=== PATIENT | male | born 1985 | race Caucasian/White ===

== ENCOUNTER 2020-07-12 11:37 | Emergency (ER) | payer MEDICAID, SELFPAY ==
[2020-07-12] MEDS: LORazepam 1 MG TABLET 2 MG PO ×2 (12:24→23:09)
[2020-07-12 12:31] VITALS: BP 142/88; PULSE 91; RESP 19; TEMP 36.6; O2SAT 100; BMI 27.3
--- NOTE | 2020-07-12 12:33 | ED.PSYCH ---
HPI - Psych General Chief Complaint: Psychiatric Symptoms <Debbie Horner NP - Last Filed: 07/12/20 20:47> Stated Complaint: SECTION 12 <Debbie Horner NP - Last Filed: 07/12/20 20:47> Time Seen by Provider: 07/12/20 12:01 <Debbie Horner NP - Last Filed: 07/12/20 20:47> Source: patient, EMS and other ( physician) <Debbie Horner NP - Last Filed: 07/12/20 20:47> Mode of arrival: EMS <Debbie Horner NP - Last Filed: 07/12/20 20:47> Limitations: no limitations <Debbie Horner NP - Last Filed: 07/12/20 20:47> History of Present Illness HPI Narrative: 35-year-old male coming from the [facility] on a Section 12. Per report from nursing the patient was at the [facility] and made some suicidal statements and the physician there placed him on a Section 12. on arrival the patient refuses to speak to me. He will not answer any questions I ask him. HPI and review of systems and physical exam is limited due to resistance of care Unable to obtain HPI due to patient being resisting to care <Debbie Horner NP - Last Filed: 07/12/20 20:47> Related Data Allergies/Adverse Reactions: Allergies Allergy/AdvReac Type Severity Reaction Status Date / Time aspirin [ASPIRIN] Allergy Unknown UPSET Unverified 05/05/20 18:20 STOMACH <Debbie Horner NP - Last Filed: 07/12/20 20:47> Review of Systems Review of Systems: Yes Other ( unable to obtain due to patient being resistant to care) <Debbie Horner NP - Last Filed: 07/12/20 20:47> PMF Past Medical History Attestation statement: The following information was validated with the patient. <Debbie Horner NP - Last Filed: 07/12/20 20:47> Source: old records reviewed and nursing notes reviewed <Debbie Horner NP - Last Filed: 07/12/20 20:47> Social History Social History: Social History Alcohol intake: unknown Smoking Status: Current every day smoker Smoked in Last 30 Days: Yes Use of substances other than those prescribed or required for medical reasons: Yes Substance Use Type: Unknown Advance Directives: No Advance Directives Information Provided: No <Debbie Horner NP - Last Filed: 07/12/20 20:47> Physical Exam Vital Signs: Vital Signs: Last Vital Signs Temp 97.4 F 07/13/20 00:00 Pulse 78 07/13/20 00:00 Resp 18 07/13/20 00:00 BP 125/97 H 07/13/20 00:00 Pulse Ox 99 07/13/20 00:00 Body Mass Index 27.3 <Debbie Horner NP - Last Filed: 07/12/20 20:47> Vital Signs: Last Vital Signs Temp 97.4 F 07/13/20 00:00 Pulse 78 07/13/20 00:00 Resp 18 07/13/20 00:00 BP 125/97 H 07/13/20 00:00 Pulse Ox 99 07/13/20 00:00 Body Mass Index 27.3 <Chivo Posey DO - Last Filed: 07/13/20 05:18> Const: General: no acute distress, alert, awake and Physically active <Debbie Horner NP - Last Filed: 07/12/20 20:47> Orientation/consciousness: patient oriented x3 <Debbie Horner NP - Last Filed: 07/12/20 20:47> Limitations: behavioral limitations <Debbie Horner NP - Last Filed: 07/12/20 20:47> HENMT: Head: Yes normal to inspection <Debbie Horner NP - Last Filed: 07/12/20 20:47> Eyes: General: appearance normal, both eyes and all related structures <Debbie Horner NP - Last Filed: 07/12/20 20:47> Neck: Neck: Yes normal visual inspection <Debbie Horner NP - Last Filed: 07/12/20 20:47> Chest: Chest palpation & inspection: normal inspection of the chest <Debbie Horner NP - Last Filed: 07/12/20 20:47> Resp: Effort & Inspection: normal respiratory effort and able to speak in complete sentences <Debbie Horner NP - Last Filed: 07/12/20 20:47> GI: Inspection: Yes normal to inspection <Debbie Horner NP - Last Filed: 07/12/20 20:47> Back/Spine/Pelvis: Thoracic/Lumbar Spine: thoracic and lumbar spine normal to inspection <Debbie Horner NP - Last Filed: 07/12/20 20:47> Skin: General skin exam: no rashes or lesions noted <Debbie Horner NP - Last Filed: 07/12/20 20:47> Neuro: General: patient oriented x3 <Debbie Horner NP - Last Filed: 07/12/20 20:47> Cognition (Neuro): normal cognition <Debbie Horner NP - Last Filed: 07/12/20 20:47> Gait exam (Neuro): Normal gait present <Debbie Horner NP - Last Filed: 07/12/20 20:47> Motor exam (neuro): 5/5 motor strength present throughout <Debbie Horner NP - Last Filed: 07/12/20 20:47> Sensory Exam: Normal double simultaneous stimulation for sensation <Debbie Horner NP - Last Filed: 07/12/20 20:47> Course Course Course Narrative: unable to complete HPI, review of systems or physical exam due to patient being resistant to care. section 12 is noted however is not completed. Call out to physician to discuss. discussed patient with Dr. Restrepo to sectioned the patient to the emergency department. He tells me the patient arrived to [facility] today. He was acting confused and disoriented. He had a drug screen which was positive for poly substances including PCP. He made vague SI statements to the staff. Sent here on section 12. Patient here is alert, oriented x3 though agitated. Refuses to answer any questions. Patient continues to be resistant to care. Refuses to answer questions. Vital signs stable. Will order drug screen and BHN evaluation. <Debbie Horner NP - Last Filed: 07/12/20 20:47> Patient evaluated and can be cleared for safe discharge patient not homicidal or suicidal <DO Veronica Pacheco Last Filed: 07/13/20 05:18> MDM - Psych Restraints Face to Face Assessment: Face to Face Assessment: Current Situation: After assessment of the patient, a review of the pertinent medical record and a discussion with nursing staff, I feel the patient requires a restrain intervention. Reaction To: [] Medical Condition: [] Behavioral State: [] Continued Need: [] <CHARLIE Song Last Filed: 07/12/20 20:47> Lab Data Labs: Lab Results 07/12/20 Range/Units 23:25 Urine Opiates Screen POSITIVE H (Not Detect) Ur Barbiturates Screen Not Detected (Not Detect) Ur Phencyclidine Scrn POSITIVE H (Not Detect) Ur Amphetamines Screen Not Detected (Not Detect) U Benzodiazepines Scrn Not Detected (Not Detect) Urine Cocaine Screen Not Detected (Not Detect) U Marijuana (THC) Screen POSITIVE H (Not Detect) <Debbie Horner NP - Last Filed: 07/12/20 20:47> Lab Results 07/12/20 Range/Units 23:25 Urine Opiates Screen POSITIVE H (Not Detect) Ur Barbiturates Screen Not Detected (Not Detect) Ur Phencyclidine Scrn POSITIVE H (Not Detect) Ur Amphetamines Screen Not Detected (Not Detect) U Benzodiazepines Scrn Not Detected (Not Detect) Urine Cocaine Screen Not Detected (Not Detect) U Marijuana (THC) Screen POSITIVE H (Not Detect) <DO Veronica Pacheco Last Filed: 07/13/20 05:18> Discharge Plan Discharge Clinical Impression: Substance use <Debbie Horner NP - Last Filed: 07/12/20 20:47> Patient Disposition: Home, Self-Care <CHARLIE Song Last Filed: 07/12/20 20:47> Instructions: Opioid Use Disorder (ED) <CHARLIE Song Last Filed: 07/12/20 20:47> Additional Instructions: Thank you for visiting the emergency department today. If your symptoms worsen or do not resolve completely please return to the emergency department immediately or call 911. If you have any questions please call your primary care physician <Debbie Horner NP - Last Filed: 07/12/20 20:47> Referrals: Behavioral Health Specialist [Provider Group] - 2 days <Debbie Horner NP - Last Filed: 07/12/20 20:47>
[2020-07-12 12:36] VITALS: BP 142/88; PULSE 91; RESP 19; TEMP 36.6; O2SAT 100
[2020-07-12 16:26] VITALS: BP 107/45; PULSE 82; RESP 16; TEMP 37.1; O2SAT 99
--- NOTE | 2020-07-12 16:31 | PC.NURSE ---
[facility] faxed and called.
--- NOTE | 2020-07-12 17:41 | PC.NURSE ---
Pt awake, currently yelling at staff about his dinner portion, explained that staff has no control over portion size but that sandwiches are available if he is still hungry. PT angrily eating dinner at this time.
--- NOTE | 2020-07-12 19:06 | PC.NURSE ---
Report received. PT is resting in bed. Breathing is even and unlabored. PT in no acute distress. Waiting to be seen.
[2020-07-12 20:19] VITALS: RESP 20
[2020-07-13] VITALS: BP 125/97; PULSE 78; RESP 18; TEMP 36.3; O2SAT 99
[2020-07-13 00:42] LABS: Amphetamine Screen Urine Not Detected (Not Detect); Barbiturates, Urine Not Detected (Not Detect); Benzodiazepines Screen Urine Not Detected (Not Detect); Cannabinoid Screen Urine POSITIVE (Not Detect); Cocaine Screen Urine Not Detected (Not Detect); Opiate Screen Urine POSITIVE (Not Detect); Phencyclidine Screen Urine POSITIVE (Not Detect)
--- NOTE | 2020-07-13 05:33 | PC.NURSE ---
PT woke up complaining of withdrawal symptoms. PT exhibiting mild tremors and slight perspiration on forehead. Provider notified.
[2020-07-13] MEDS: LORazepam 1 MG TABLET PO (05:37)
[2020-07-13 06:00] VITALS: BP 96/72; PULSE 103; RESP 20; TEMP 37.1; O2SAT 98
--- NOTE | 2020-07-13 07:31 | PC.NURSE ---
Report received from SELMA Diaz. Per report, pt is ready for discharge. Pt notified that discharge was ordered. Pt angry because he has not received Suboxone. Pt encouraged to go to his clinic to get Suboxone- states that he has a clinic he attends. Pt continues to be angry. Secuirty in for assistance. Pt discharged as ordered.
== END 2020-07-13 07:34 | disposition home or self-care (01) ==
PROVIDERS: Nurse Practitioner Family; Emergency Provider Emergency Medicine
DX: F11.10 Opioid abuse, uncomplicated (principal); F16.10 Hallucinogen abuse, uncomplicated; F12.10 Cannabis abuse, uncomplicated; R45.851 Suicidal ideations; F17.200 Nicotine dependence, unspecified, uncomplicated; Z71.6 Tobacco abuse counseling; Z71.51 Drug abuse counseling and surveillance of drug abuser
CPT/HCPCS: 80307; 99285

== ENCOUNTER 2020-10-31 19:25 | Emergency (ER) | payer MEDICAID, SELFPAY ==
[2020-10-31 19:49] VITALS: BP 199/90; PULSE 88; RESP 16; TEMP 36.8; O2SAT 98; BMI 22.6
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
[2020-10-31 20:44] LABS: MANUAL DIFF FLAG NO
[2020-10-31 20:46] LABS: Basophils Percent Auto 0.3 % (0-2); Eosinophils Absolute Auto 0.1 X10*3/uL (0.0-0.4); Eosinophils Percent Auto 1.3 % (0-4); Hematocrit 36.6 % (42-52); Hemoglobin 11.4 g/dl (14.0-18.0); Imm Gran Abs Auto 0.01 X10*3/uL (0.00-0.03); Imm Gran Pct Auto 0.1 % (0.0-0.4); Lymphocytes Absolute Auto 2.4 X10*3/uL (1.2-4.9); Lymphocytes Percent Auto 34.3 % (20-40); Mean Corpuscular HGB Conc 31.1 g/dl (31.0-36.0); Mean Corpuscular Hemoglobin 25.4 pg (27.0-33.0); Mean Corpuscular Volume 81.5 fL (80-98); Monocytes Absolute Auto 0.6 X10*3/uL (0.1-1.2); Monocytes Percent Auto 8.5 % (2-11); Neutrophils Absolute Auto 3.9 X10*3/uL (2.0-8.3); Neutrophils Percent Auto 55.5 % (45-73); Platelet Count 231 X10*3/uL (160-400); Red Blood Count 4.49 X10*6/uL (4.60-5.80); Red Cell Distribution Width 15.3 % (11.0-16.0)
[2020-10-31 21:10] LABS: Ethanol < 10 mg/dL
[2020-10-31 21:14] LABS: Alanine Aminotransferase 18 U/L (0-40); Albumin Level 3.8 g/dL (3.5-5.0); Alkaline Phosphatase 54 U/L (39-117); Anion Gap 11 (12-20); Aspartate Amino Transferase 27 U/L (5-37); Bilirubin Total 0.5 mg/dL (0.0-1.0); Blood Urea Nitrogen 15 mg/dL (9-16); Calcium 8.9 mg/dL (8.4-10.2); Carbon Dioxide 30 mmol/L (22-29); Chloride 101 mmol/L (96-108); Creatinine Clr Calc Pharmacy 111.8; Estimated Glomerular Filt Rate > 60; Glucose Random 99 mg/dL (60-115); Potassium 4.2 mmol/L (3.3-5.1); Sodium 138 mmol/L (135-145); Total Protein 6.7 g/dL (6.5-8.0)
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
[2020-10-31] MEDS: LORazepam 1 MG TABLET 2 MG PO (21:45)
--- NOTE | 2020-10-31 21:47 | PC.NURSE ---
FUR POINTER AT BEDSIDE. PT IN NAD, MEDICATED W/ PO ATIVAN FOR ANXIETY PER EMAR.
[2020-10-31 23:45] VITALS: BP 107/64; PULSE 70; RESP 16; TEMP 37.2; O2SAT 97
[2020-11-01 06:00] VITALS: BP 134/68; PULSE 76; RESP 18; TEMP 36.7; O2SAT 99
--- NOTE | 2020-11-01 07:16 | PC.NURSE ---
Report received. PT currently resting, waiting to be seen.
--- NOTE | 2020-11-01 09:16 | PC.NURSE ---
[facility] contacted, a clinician will not be available for evaluation until this afternoon.
[2020-11-01 09:46] VITALS: BP 103/64; PULSE 66; RESP 16; TEMP 36.3; O2SAT 97
--- NOTE | 2020-11-01 09:50 | PC.NURSE ---
care team at bedside
[2020-11-01 12:08] LABS: COVID-19 Test Negative (Negative)
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
[2020-11-01 12:24] LABS: Amphetamine Screen Urine Not Detected (Not Detect); Barbiturates, Urine Not Detected (Not Detect); Benzodiazepines Screen Urine Not Detected (Not Detect); Cannabinoid Screen Urine POSITIVE (Not Detect); Cocaine Screen Urine POSITIVE (Not Detect); Opiate Screen Urine POSITIVE (Not Detect); Phencyclidine Screen Urine Not Detected (Not Detect)
--- NOTE | 2020-11-01 14:10 | MHC.RECOVSUP ---
? Reason for consult:Continuity of care o Current location: [facility] o Identified substance use concern: Heroin - Withdrawal - Seeking ATS (detox) - Support ? Intervention: o ATS bed search started/completed/in process o MAT started or to be started o Community resources provided o Harm reduction discussion ? Plan: o Bed search in progress to o Follow up tomorrow o Patient awaiting crisis evaluation o Patient to follow up with [facility] after discharge ? Additional information: PT refusesd services from [place] or [facility]. pt on wait list for [facility]. Referred case to Nurse Lambert.
[2020-11-01] MEDS: LORazepam 1 MG TABLET 2 MG PO (14:14)
[2020-11-01 15:36] VITALS: BP 122/84; PULSE 57; RESP 16; TEMP 37.5; O2SAT 97
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
--- NOTE | 2020-11-01 16:00 | MHC.RECOVRN ---
Pt agreed to be connected to [facility]. APOLINAR obtained, referral and pertinent information faxed.
== END 2020-11-01 17:15 | disposition home or self-care (01) ==
PROVIDERS: Nurse Practitioner Family; Physician Assistant; Emergency Provider Student in an Organized Health Care Education/Training Program
DX: F11.151 Opioid abuse with opioid-induced psychotic disorder with hallucinations (principal); F11.150 Opioid abuse with opioid-induced psychotic disorder with delusions; F23 Brief psychotic disorder; F43.10 Post-traumatic stress disorder, unspecified; R45.851 Suicidal ideations; F22 Delusional disorders; F32.9 Major depressive disorder, single episode, unspecified; F41.9 Anxiety disorder, unspecified; Z20.822 Contact with and (suspected) exposure to COVID-19; F14.10 Cocaine abuse, uncomplicated; F11.10 Opioid abuse, uncomplicated
CPT/HCPCS: 36415; 80053; 80307; 80320; 85025; 87635; 99285

== ENCOUNTER → 2020-11-24 13:03 | Outpatient (BNVA) | payer MEDICAID, SELFPAY | PROVIDERS: Visit Provider Nurse Practitioner Psychiatric/Mental Health | DX: F11.99 Opioid use, unspecified with unspecified opioid-induced disorder (principal) | CPT/HCPCS: 80305; 99202 ==

== ENCOUNTER → 2020-12-01 13:01 | Outpatient (BNVA) | payer MEDICAID, SELFPAY | PROVIDERS: Visit Provider Nurse Practitioner Psychiatric/Mental Health | DX: F11.99 Opioid use, unspecified with unspecified opioid-induced disorder (principal) | CPT/HCPCS: 80305; 99212 ==

== ENCOUNTER → 2020-12-15 12:54 | Outpatient (BNVA) | payer MEDICAID, SELFPAY | PROVIDERS: Visit Provider Nurse Practitioner Psychiatric/Mental Health | DX: F11.99 Opioid use, unspecified with unspecified opioid-induced disorder (principal) | CPT/HCPCS: 80305; 99212 ==

== ENCOUNTER → 2020-12-23 12:46 | Outpatient (BNVA) | payer MEDICAID, SELFPAY | PROVIDERS: Visit Provider Internal Medicine | DX: F11.99 Opioid use, unspecified with unspecified opioid-induced disorder (principal) | CPT/HCPCS: 80305; 99211 ==

== ENCOUNTER → 2020-12-29 13:06 | Outpatient (BNVA) | payer MEDICAID, SELFPAY | PROVIDERS: Visit Provider Nurse Practitioner Psychiatric/Mental Health | DX: F11.99 Opioid use, unspecified with unspecified opioid-induced disorder (principal) | CPT/HCPCS: 80305; 99212 ==

== ENCOUNTER 2021-01-05 13:27 | Outpatient (REF) | payer MEDICAID, SELFPAY ==
[2021-01-11 10:42] LABS: Buprenorphine >1000 ng/mL; Norbuprenorphine 150 ng/mL
== END 2021-01-05 13:28 | disposition home or self-care (01) ==
LOC: HO.LAB 13:27
PROVIDERS: Visit Provider Nurse Practitioner Psychiatric/Mental Health
DX: F11.20 Opioid dependence, uncomplicated (principal); Z79.899 Other long term (current) drug therapy
CPT/HCPCS: 80305; 80348; 99212

== ENCOUNTER 2021-01-12 10:12 | Outpatient (REF) | payer MEDICAID, SELFPAY ==
[2021-01-15 11:27] LABS: Buprenorphine 120 ng/mL; Norbuprenorphine 190 ng/mL
== END 2021-01-12 10:13 | disposition home or self-care (01) ==
LOC: HO.LAB 10:12
PROVIDERS: Visit Provider Nurse Practitioner Psychiatric/Mental Health
DX: F11.20 Opioid dependence, uncomplicated (principal); Z51.81 Encounter for therapeutic drug level monitoring
CPT/HCPCS: 80305; 80348; 99212

== ENCOUNTER → 2021-01-19 13:12 | Outpatient (BNVA) | payer MEDICAID, SELFPAY | PROVIDERS: Visit Provider Nurse Practitioner Psychiatric/Mental Health | DX: Z51.81 Encounter for therapeutic drug level monitoring (principal); F11.20 Opioid dependence, uncomplicated | CPT/HCPCS: 80305; 99212 ==

== ENCOUNTER 2021-01-26 12:22 | Outpatient (REF) | payer MEDICAID, SELFPAY | END 2021-01-26 12:23 | disposition home or self-care (01) | LOC: HO.LAB 12:22 | PROVIDERS: Visit Provider Nurse Practitioner Psychiatric/Mental Health | DX: Z11.1 Encounter for screening for respiratory tuberculosis (principal); Z11.4 Encounter for screening for human immunodeficiency virus [HIV]; Z79.899 Other long term (current) drug therapy | CPT/HCPCS: 99211 ==

== ENCOUNTER → 2021-02-02 13:06 | Outpatient (BNVA) | payer MEDICAID, SELFPAY | PROVIDERS: Visit Provider Nurse Practitioner Psychiatric/Mental Health | DX: Z51.81 Encounter for therapeutic drug level monitoring (principal); F11.20 Opioid dependence, uncomplicated | CPT/HCPCS: 80305; 99212 ==

== ENCOUNTER 2021-04-11 10:51 | Inpatient (IN) | payer MEDICAID, SELFPAY ==
[2021-04-11] VITALS (10 sets, daily range): BP systolic 114–144; BP diastolic 56–108; PULSE 109–126; RESP 16–28; TEMP 36–37.1; O2SAT 87–97; BMI 22.7
--- NOTE | ~2021-04-11 | CT_ITS ---
EXAMINATION: CT HEAD WITHOUT CONTRAST CLINICAL INFORMATION: Fall, trauma COMPARISON: None TECHNIQUE: Contiguous axial imaging was performed from the skull base to vertex without intravenous administration of contrast. Additional 2-D coronal and sagittal reformatted images are generated on the CT workstation and uploaded to PACS. This CT examination was performed using dose optimization techniques as appropriate, variously including the following: *Automated exposure control *Adjustment of mA and/or kV according to patient size (this includes techniques or standardized protocols for targeted exams where dose is matched to indication/reason for exam; i.e. extremities or head) *Use of iterative reconstruction technique DLP: 778 mGy-cm FINDINGS: There is no intracranial hemorrhage, hematoma, or extra-axial fluid collection. The ventricles are normal in size. There is no hydrocephalus, edema, or mass effect. The hudson-white matter differentiation appears symmetric. There is no visible acute territorial infarct or mass lesion. The calvarium appears intact. There is no pneumocephalus or orbital emphysema. There is a air-fluid level right maxillary sinus. The orbital rims and floors zygomatic arches appear intact. No visible fracture. CT/CT head/brain wo con IMPRESSION: 1. No acute intracranial abnormality. 2. Air-fluid level right maxillary sinus. No visible fracture.
--- NOTE | ~2021-04-11 | XR_ITS ---
EXAMINATION: XR CHEST CLINICAL INFORMATION: Right chest pain. COMPARISON: Chest 08/07/2019 TECHNIQUE: Frontal view of the chest was obtained. FINDINGS: The lungs are well-expanded and clear. The heart size is enlarged. The pulmonary vascularity is normal. No gross bony abnormality. XR/XR chest 1V IMPRESSION: Mild cardiomegaly. No acute process.
--- NOTE | ~2021-04-11 | CT_ITS ---
EXAMINATION: CT CERVICAL SPINE WITHOUT CONTRAST CLINICAL INFORMATION: Fall, trauma COMPARISON: CT head 04/11/2021 TECHNIQUE: Multidetector volumetric CT imaging of the cervical spine is performed without contrast in the axial plane. Additional 2D reformatted coronal and sagittal images are generated on the CT workstation and uploaded to PACS. This CT examination was performed using dose optimization techniques as appropriate, variously including the following: *Automated exposure control *Adjustment of mA and/or kV according to patient size (this includes techniques or standardized protocols for targeted exams where dose is matched to indication/reason for exam; i.e. extremities or head) *Use of iterative reconstruction technique DLP: 440 mGy-cm FINDINGS: There is no vertebral compression fracture, fracture line, spondylolisthesis, or prevertebral soft tissue swelling. The craniocervical junction appears normal. The odontoid appears intact. There is normal cervical lordosis. There are no significant degenerative changes. There is no apical pneumothorax. Air-fluid level right maxillary sinus again noted. CT/CT cervical spine wo con IMPRESSION: No acute bony abnormality or prevertebral soft tissue swelling.
--- NOTE | ~2021-04-11 | CT_ITS ---
EXAMINATION: CT CHEST WITHOUT CONTRAST CLINICAL INFORMATION: Fall, trauma COMPARISON: None TECHNIQUE: Multidetector volumetric CT imaging of the chest was done. Axial MIP volume rendering provided. Sagittal and coronal reformatted images were obtained. No intravenous contrast. CT abdomen and pelvis described in separate report. This CT examination was performed using dose optimization techniques as appropriate, variously including the following: *Automated exposure control *Adjustment of mA and/or kV according to patient size (this includes techniques or standardized protocols for targeted exams where dose is matched to indication/reason for exam; i.e. extremities or head) *Use of iterative reconstruction technique DLP: 185 mGy-cm FINDINGS: LUNGS: The central airways are clear. There is no endobronchial lesion or bronchiectasis. There is no pneumothorax or pneumomediastinum or subcutaneous emphysema. Bilateral fluffy airspace consolidation opacities are scattered throughout the bilateral lower lobes, more extensive on the right. There is somewhat greater involvement along the bronchovascular bundles and greater involvement posteriorly. There are also scattered superimposed groundglass opacities in the lower lobes. Lesser airspace consolidative and groundglass opacities are present in the right upper lobe. Predominantly groundglass opacities right middle lobe and posterior left upper lobe. There is incidental calcified granuloma left posterior base. Otherwise, no pulmonary nodule or mass. MEDIASTINUM: No mediastinal hematoma. There is normal thymic tissue anteriorly. The thoracic aorta is normal in caliber. No aneurysmal enlargement or intramural hematoma suggested. The heart is normal in size. No pericardial effusion. PLEURA: No pleural effusion. No pleural thickening. AXILLA: No lymphadenopathy. UPPER ABDOMEN: CT abdomen and pelvis described in separate report. OSSEOUS STRUCTURES: Unremarkable. CT/CT chest wo con IMPRESSION: 1. Extensive bilateral fluffy airspace consolidative opacities and superimposed groundglass opacities greatest lower lobes, greater on right. Lesser involvement right upper lobe and predominantly groundglass opacities right middle lobe and posterior left upper lobe. If patient was asymptomatic prior to trauma, the finding are likely related to combination pulmonary hemorrhage and/or aspiration. If patient had respiratory symptoms prior to trauma, then infectious etiology may be superimposed as well. 2. No mediastinal hematoma. No pericardial effusion. Thoracic aorta normal in caliber. 3. No pneumothorax, pneumomediastinum, or subcutaneous emphysema. No fracture. 4. CT abdomen and pelvis described in separate report.
--- NOTE | ~2021-04-11 | CT_ITS ---
EXAMINATION: CT ABDOMEN AND PELVIS WITHOUT CONTRAST CLINICAL INFORMATION: Fall, trauma COMPARISON: CT chest 04/11/2021 TECHNIQUE: Multidetector volumetric imaging was performed from the superior aspect of the liver through the pubic symphysis. No oral or intravenous contrast. Sagittal and coronal reformatted images were obtained on the technologist's workstation. CT chest described in separate report. This CT examination was performed using dose optimization techniques as appropriate, variously including the following: *Automated exposure control *Adjustment of mA and/or kV according to patient size (this includes techniques or standardized protocols for targeted exams where dose is matched to indication/reason for exam; i.e. extremities or head) *Use of iterative reconstruction technique DLP: 420 mGy-cm (abd-pelvis) FINDINGS: LUNG BASES: CT chest described in separate report. LIVER, GALLBLADDER, AND BILIARY TREE: Liver is within upper limits of normal size and smooth in contour. The parenchyma areas homogeneous. No focal parenchymal lesion on this noncontrast exam. No intrahepatic ductal dilatation. The gallbladder and common duct or unremarkable. PANCREAS: Unremarkable. SPLEEN: Unremarkable. ADRENAL GLANDS: Unremarkable. KIDNEYS AND URETERS: The kidneys are normal in size, shape, and attenuation. No hydronephrosis, hydroureter, or calculi seen. No perinephric stranding. No retroperitoneal hematoma. BLADDER: Unremarkable. GASTROINTESTINAL TRACT: The stomach is dilated and predominantly fluid-filled with some retained food contents posteriorly and some intraluminal air nondependent lumen. There is no wall thickening. The abdomen and pelvis shows no pneumatosis or free air. There is no focal inflammatory changes in the bowel. The appendix is normal. There is no ascites or fluid collection. ABDOMINAL WALL: No significant hernia are appreciated. No abdominal wall hematoma. LYMPH NODES: No lymphadenopathy. VASCULAR: Unremarkable on noncontrast exam. No aneurysmal enlargement aorta. PELVIC VISCERA: Unremarkable. OSSEOUS STRUCTURES: No visible fracture. CT/CT abdomen pelvis wo con IMPRESSION: 1. Gastric dilatation with intraluminal fluid and food contents. 2. No pneumatosis or free air. No ascites or hematoma. 3. Abdominal organs unremarkable (noncontrast exam). 4. No fracture. 5. CT chest described in separate report.
--- NOTE | 2021-04-11 11:20 | ED.OVERDOSE ---
HPI - Overdose General Chief Complaint: Overdose Stated Complaint: OVERDOSE Time Seen by Provider: 04/11/21 11:18 Source: patient and EMS Mode of arrival: EMS Limitations: no limitations History of Present Illness HPI Narrative: very limited history the patient notes he was using heroin and overdosed, given IV narcan and IN narcan - he is covered in weird linear bruises found down on the ground he is upper 80s on NRB no other history provided RN doesn't know doses of narcan and if patient was bagged complaint: accidental overdose Onset (ago): unknown Context: Accidental Overdose: wanted to get high Treatments Prior to Arrival: oxygen and narcan Related Data Previous Rx's Medication Instructions Recorded naloxone 4 mg/actuation nasal 4 mg INTRANASAL Q2M PRN #2 ea 11/24/20 spray (Narcan) buprenorphine 8 mg-naloxone 2 mg 1 film BUCCAL BID 7 Days #28 ea 02/02/21 sublingual film (Suboxone) clonidine HCl 0.1 mg tablet 0.1 mg PO BID PRN #14 tab 02/02/21 buprenorphine 300 mg/1.5 mL 300 mg SUBCUT ONCE #1.5 ml 02/06/21 solution,exten.rel.subcutaneous syringe (Sublocade) Allergies Allergy/AdvReac Type Severity Reaction Status Date / Time No Known Allergies Allergy Verified 12/29/20 13:15 Review of Systems Review of Systems: ROS unable to be obtained due to altered mental status PMFSH Past Medical History Attestation statement: The following information was validated with the patient. Medical History Drug abuse, opioid type Opioid use disorder Social History Social History Alcohol intake: never Substance Use Type: Heroin Advance Directives: Yes Advance Directives Information Provided: Yes Advance Directives on File: No Physical Exam Vital Signs: Vital Signs: Last Vital Signs Temp 98.7 F 04/11/21 11:16 Pulse 126 H 04/11/21 13:36 Resp 16 04/11/21 13:36 BP 127/108 H 04/11/21 13:36 Pulse Ox 97 04/11/21 13:36 Oxygen Flow Rate 15 04/11/21 11:16 Body Mass Index 22.7 Appearance: Alert. Oriented X3. Mild acute distress. Eyes: pupils are pinpoint ENT: Pharynx normal. Neck: Normal inspection. Neck supple. CVS: Normal heart rate and rhythm. Pulses normal. Respiratory: No respiratory distress. Breath sounds decreased throughout but normal RR, speaking in full sentences Abdomen: Soft and non-tender. Has linear ecchmotic lines ?scratch portillo noted on abdomen / back Skin: Skin warm and dry. pale skin color. Extremities: No lower extremity edema. pain in R thigh no obvious trauma compartments are soft and compressible states it is tingly Neuro: Oriented X 3. No motor deficit. No sensory deficit. Course Course Course Narrative: patient with diffuse myalgias all compartments are soft and compressible, he isn't sure how long he was down, markedly high CPK started on bicarb gtt as well and IVF recheck compartments soft and compressible still c/o myalgias orthopedics and renal notified recheck again 127pm all compartments soft and compressible though c/o body aches admit to hospitalist service, attempts to wean down O2 plan to admit MDM - Overdose MDM Narrative Medical decision making narrative: 35 yo male accidental overdose requiring narcan - he is awake and alert now normal RR low O2 sats possible aspiration pneumonia vs neg pressure pulm edema, labs, trauma CT scans given weird bruising but could be scratch portillo after he was using c/o R thigh pain no signs of trauma states it is tingling possible compressive area currently distal NV intact and compartments are soft and compressible, dispo per workup and observation Lab Data Result diagrams: 04/11/21 11:33 04/11/21 11:33 Labs: Lab Results 04/11/21 04/11/21 04/11/21 Range/Units 11:33 11:33 11:34 WBC 21.2 H (4.8-10.8) X10*3/uL RBC 4.78 (4.60-5.80) X10*6/uL Hgb 12.3 L (14.0-18.0) g/dl Hct 39.2 L (42-52) % MCV 82.0 (80-98) fL MCH 25.7 L (27.0-33.0) pg MCHC 31.4 (31.0-36.0) g/dl RDW 16.7 H (11.0-16.0) % Plt Count 211 (160-400) X10*3/uL MPV 9.9 (9.4-12.4) fL Immature Gran % (Auto) 1.1 H (0.0-0.4) % Neut % (Auto) 84.6 H (45-73) % Lymph % (Auto) 6.6 L (20-40) % [place] % (Auto) 7.6 (2-11) % Eos % (Auto) 0.0 (0-4) % Baso % (Auto) 0.1 (0-2) % Lymph # (Auto) 1.4 (1.2-4.9) X10*3/uL [place] # (Auto) 1.6 H (0.1-1.2) X10*3/uL Eos # (Auto) 0.0 (0.0-0.4) X10*3/uL Baso # (Auto) 0.0 (0.0-0.2) X10*3/uL Abs Immat Gran (auto) 0.24 H (0.00-0.03) X10*3/uL Absolute Neuts (auto) 17.9 H (2.0-8.3) X10*3/uL Absolute Nucleated RBC 0.000 (0.0-0.012) X10*3/uL Nucleated RBC % (auto) 0.0 (0.0-0.2) /100WBC Smear Tech's Comments VERIFIED Sodium 136 (135-145) mmol/L Potassium 5.4 H D (3.3-5.1) mmol/L Chloride 100 (96-108) mmol/L Carbon Dioxide 19 L (22-29) mmol/L Anion Gap 22 H (12-20) BUN 32 H D (9-16) mg/dL Creatinine 1.52 H (0.5-1.4) mg/dL Estim Creat Clear Calc 62.5 Estimated GFR 52 Random Glucose 104 (60-115) mg/dL Lactic Acid (0.5-2.0) mmol/L Calcium 9.7 D (8.4-10.2) mg/dL Phosphorus 7.4 H (2.7-4.5) mg/dL Magnesium 2.7 H (1.6-2.6) mg/dL Total Bilirubin 0.6 (0.0-1.0) mg/dL Direct Bilirubin 0.2 (0.0-0.5) mg/dL AST 176 H (5-37) U/L ALT 54 H (0-40) U/L Alkaline Phosphatase 55 (39-117) U/L Total Creatine Kinase 71963 H (38-174) U/L Total Protein 7.7 (6.5-8.0) g/dL Albumin 4.6 D (3.5-5.0) g/dL Lipase 18 (8-78) U/L Urine Opiates Screen (Not Detect) Urine Fentanyl Screen (Not Detect) Ur Barbiturates Screen (Not Detect) Ur Phencyclidine Scrn (Not Detect) Ur Amphetamines Screen (Not Detect) U Benzodiazepines Scrn (Not Detect) Urine Cocaine Screen (Not Detect) U Marijuana (THC) Screen (Not Detect) Ethyl Alcohol mg/dL COVID-19 (ALEXX) Negative (Negative) COVID-19 Clin Com See Note 04/11/21 04/11/21 04/11/21 Range/Units 12:01 13:10 13:10 WBC (4.8-10.8) X10*3/uL RBC (4.60-5.80) X10*6/uL Hgb (14.0-18.0) g/dl Hct (42-52) % MCV (80-98) fL MCH (27.0-33.0) pg MCHC (31.0-36.0) g/dl RDW (11.0-16.0) % Plt Count (160-400) X10*3/uL MPV (9.4-12.4) fL Immature Gran % (Auto) (0.0-0.4) % Neut % (Auto) (45-73) % Lymph % (Auto) (20-40) % [place] % (Auto) (2-11) % Eos % (Auto) (0-4) % Baso % (Auto) (0-2) % Lymph # (Auto) (1.2-4.9) X10*3/uL [place] # (Auto) (0.1-1.2) X10*3/uL Eos # (Auto) (0.0-0.4) X10*3/uL Baso # (Auto) (0.0-0.2) X10*3/uL Abs Immat Gran (auto) (0.00-0.03) X10*3/uL Absolute Neuts (auto) (2.0-8.3) X10*3/uL Absolute Nucleated RBC (0.0-0.012) X10*3/uL Nucleated RBC % (auto) (0.0-0.2) /100WBC Smear Tech's Comments Sodium (135-145) mmol/L Potassium (3.3-5.1) mmol/L Chloride (96-108) mmol/L Carbon Dioxide (22-29) mmol/L Anion Gap (12-20) BUN (9-16) mg/dL Creatinine (0.5-1.4) mg/dL Estim Creat Clear Calc Estimated GFR Random Glucose (60-115) mg/dL Lactic Acid 3.6 H* (0.5-2.0) mmol/L Calcium (8.4-10.2) mg/dL Phosphorus (2.7-4.5) mg/dL Magnesium (1.6-2.6) mg/dL Total Bilirubin (0.0-1.0) mg/dL Direct Bilirubin (0.0-0.5) mg/dL AST (5-37) U/L ALT (0-40) U/L Alkaline Phosphatase (39-117) U/L Total Creatine Kinase (38-174) U/L Total Protein (6.5-8.0) g/dL Albumin (3.5-5.0) g/dL Lipase (8-78) U/L Urine Opiates Screen POSITIVE H (Not Detect) Urine Fentanyl Screen POSITIVE H (Not Detect) Ur Barbiturates Screen Not Detected (Not Detect) Ur Phencyclidine Scrn Not Detected (Not Detect) Ur Amphetamines Screen Not Detected (Not Detect) U Benzodiazepines Scrn Not Detected (Not Detect) Urine Cocaine Screen POSITIVE H (Not Detect) U Marijuana (THC) Screen POSITIVE H (Not Detect) Ethyl Alcohol < 10 mg/dL COVID-19 (ALEXX) (Negative) COVID-19 Clin Com ECG Data Attestation: I personally reviewed and interpreted this ECG as follows: ECG interpretation date: 04/11/21 ECG interpretation time: 11:51 Interpretation: Rate: 112 Rhythm: sinus tachycardia [place]: normal Normal P waves. Normal PUMA. Normal QRS complex. ST T wave : normal no BRIAN qTC: normal prior studies: no acute ischemia The study has been interpreted contemporaneously by me. . Critical Care Time Critical Care Time Critical Care Time: Yes Total Critical Care Time: 60 Attestation: IVF, medical consults, repeat compartment checks I attest to this time spent taking care of the patient Discharge Plan Discharge Clinical Impression: Accidental overdose Qualifiers: Encounter type: initial encounter Qualified Code(s): T50.901A - Poisoning by unspecified drugs, medicaments and biological substances, accidental (unintentional), initial encounter Rhabdomyolysis Qualifiers: Rhabdomyolysis type: non-traumatic Qualified Code(s): M62.82 - Rhabdomyolysis Aspiration pneumonia Qualifiers: Aspiration pneumonia type: due to vomit Laterality: right Lung location: unspecified part of lung Qualified Code(s): J69.0 - Pneumonitis due to inhalation of food and vomit Patient Disposition: Admitted As Inpatient
--- NOTE | 2021-04-11 11:26 | ECG_ITS ---
Test Reason : OVERDOSE Blood Pressure : / mmHG Vent. Rate : 112 BPM Atrial Rate : 112 BPM P-R Int : 122 ms QRS Dur : 082 ms QT Int : 298 ms P-R-T Axes : 047 074 034 degrees QTc Int : 406 ms Sinus tachycardia Otherwise normal ECG When compared with ECG of 07-AUG-2019 22:20, Heart rate has increased Referred By: Dana Bull Electronically Signed By:KELL MAGANA
[2021-04-11 11:50] LABS: Basophils Percent Auto 0.1 % (0-2); Hematocrit 39.2 % (42-52); Hemoglobin 12.3 g/dl (14.0-18.0); Imm Gran Abs Auto 0.24 X10*3/uL (0.00-0.03); Imm Gran Pct Auto 1.1 % (0.0-0.4); Lymphocytes Absolute Auto 1.4 X10*3/uL (1.2-4.9); Lymphocytes Percent Auto 6.6 % (20-40); MANUAL DIFF FLAG SCAN; Mean Corpuscular HGB Conc 31.4 g/dl (31.0-36.0); Mean Corpuscular Hemoglobin 25.7 pg (27.0-33.0); Mean Platelet Volume 9.9 fL (9.4-12.4); Monocytes Absolute Auto 1.6 X10*3/uL (0.1-1.2); Monocytes Percent Auto 7.6 % (2-11); Neutrophils Absolute Auto 17.9 X10*3/uL (2.0-8.3); Neutrophils Percent Auto 84.6 % (45-73); Platelet Count 211 X10*3/uL (160-400); Red Blood Count 4.78 X10*6/uL (4.60-5.80); Red Cell Distribution Width 16.7 % (11.0-16.0); SCAN SMEAR FLAG 1; White Blood Count 21.2 X10*3/uL (4.8-10.8)
[2021-04-11 12:09] LABS: COVID-19 Test Negative (Negative)
[2021-04-11 12:16] LABS: SLIDE REVIEW VERIFIED
[2021-04-11 12:23] LABS: Alanine Aminotransferase 54 U/L (0-40); Albumin Level 4.6 g/dL (3.5-5.0); Alkaline Phosphatase 55 U/L (39-117); Anion Gap 22 (12-20); Aspartate Amino Transferase 176 U/L (5-37); Bilirubin Direct 0.2 mg/dL (0.0-0.5); Bilirubin Total 0.6 mg/dL (0.0-1.0); Blood Urea Nitrogen 32 mg/dL (9-16); Calcium 9.7 mg/dL (8.4-10.2); Carbon Dioxide 19 mmol/L (22-29); Chloride 100 mmol/L (96-108); Creatinine Clr Calc Pharmacy 62.5; Estimated Glomerular Filt Rate 52; Glucose Random 104 mg/dL (60-115); Lipase 18 U/L (8-78); Magnesium 2.7 mg/dL (1.6-2.6); Potassium 5.4 mmol/L (3.3-5.1); Sodium 136 mmol/L (135-145); Total Protein 7.7 g/dL (6.5-8.0)
[2021-04-11] MEDS: Albuterol Sulfate (0.083%) 2.5 MG/3 ML VIAL.NEB INHALE (12:33)
[2021-04-11 12:48] LABS: Ethanol < 10 mg/dL
[2021-04-11] MEDS: Piperacillin Sodium/Tazobactam 3.375 GM in 0.9 % Sodium Chloride 50 ML IV (13:34)
[2021-04-11] MEDS: 0.9 % Sodium Chloride 1,973.13 ML 1973.13 ML IV (13:34)
--- NOTE | 2021-04-11 13:39 | PC.NURSE ---
Patient moving arms in strange movements over head. Unable to keep them straight. MD finley brought to bedside.
[2021-04-11] MEDS: Sodium Bicarbonate 8.4% 150 MEQ in Dextrose 5 % 850 ML 100 MEQ IV (13:48)
[2021-04-11 13:49] LABS: Lactic Acid 3.6 mmol/L (0.5-2.0)
[2021-04-11 13:51] LABS: Amphetamine Screen Urine Not Detected (Not Detect); Barbiturates, Urine Not Detected (Not Detect); Benzodiazepines Screen Urine Not Detected (Not Detect); Cannabinoid Screen Urine POSITIVE (Not Detect); Cocaine Screen Urine POSITIVE (Not Detect); Fentanyl, urine POSITIVE (Not Detect); Opiate Screen Urine POSITIVE (Not Detect); Phencyclidine Screen Urine Not Detected (Not Detect)
[2021-04-11 13:54] LABS: Phosphorus 7.4 mg/dL (2.7-4.5)
--- NOTE | 2021-04-11 14:35 | PM.IMHP ---
History of Present Illness Date of Service: 04/11/21 Chief Complaint: overdose This is a 35 yo M with a PMH of opiate abuse who was brought in to the emergency room by paramedics. History is obtained from the ED charts and providers as the patient does not recall the events that led up to him being brought it. He does endorse using heroine, IV, daily. He reports being on suboxone previously, but it is unclear if he is currently taking it. Per ED provider, he was brought in by paramedics, found down on the ground. Upon arrival to the the ED, his saturations were in the upper 80s on NRB mask. He was given IV and IM narcan, but dose is not clear. In the ED, the patients work up showed diffuse R lung findings, likely secondary to aspiration. His blood work showed Rhabdo with mild GARRY. His WBC count was elevated to 22,but he remains afebrile. He was given a dose of IV zosyn, started on bicarb drip and admission was requested. The patient is seen in the ED around 230pm. He reports generalized aches and pain, no specific location. He reports feeling extremely thirsty. When asked about this opiate use, he does not give a full account, just keeps stating that he is no longer going to be using it. He denies any anginal symptoms. Reports generalized body aches. Review of Systems Review of Systems: ROS limited denies cardiac cp, reports some shortness of breath and reports generalised aches and pain PMFSH Medical History Drug abuse, opioid type Opioid use disorder Pertinent family history: unclear, patient does not answer Social History Alcohol intake: never Substance Use Type: Heroin Advance Directives: Yes Advance Directives Information Provided: Yes Advance Directives on File: No Meds Allergies Allergy/AdvReac Type Severity Reaction Status Date / Time No Known Allergies Allergy Verified 12/29/20 13:15 Active Medications: Current Medications Generic Name Dose Route Start Last Admin Trade Name Freq PRN Reason Stop Dose Admin Acetaminophen 650 mg 04/11/21 14:29 Acetaminophen 325 Mg Tablet PO Q6H PRN Pain, Mild (Pain Scale 1-3) Heparin Sodium (Porcine) 5,000 unit 04/11/21 14:30 Heparin Sodium,Porcine 5,000 Unit/Ml Vial SUBCUT Q8H [facility] Sodium Bicarbonate 150 meq/ 1,000 mls @ 100 mls/hr 04/11/21 13:00 04/11/21 13:48 Dextrose IV 100 mls/hr .Q10H [facility] Administration Sodium Chloride 1,000 mls @ 150 mls/hr 04/11/21 13:45 Ns IVCONT .Q6H40M [facility] Ampicillin Sodium/Sulbactam 100 mls @ 200 mls/hr 04/11/21 14:30 Sodium 3 gm/ Sodium Chloride IV Q6H [facility] Methylprednisolone Sodium Succinate 60 mg 04/11/21 14:30 Methylprednisolone Sod Succ 125 Mg/2 Ml Vial IVPUSH Q8H [facility] Ondansetron HCl 4 mg 04/11/21 14:29 Ondansetron Hcl 4 Mg/2 Ml Vial IVPUSH Q8H PRN Nausea and Vomiting Sodium Chloride 3 ml 04/11/21 16:00 0.9 % Sodium Chloride Flush 3 Ml Syringe IVFLUSH QSHIFT [facility] Physical Exam Vital Signs and Narrative: Vital Signs: Last Vital Signs Temp 98.7 F 04/11/21 11:16 Pulse 123 H 04/11/21 13:56 Resp 20 04/11/21 13:56 BP 119/81 04/11/21 13:56 Pulse Ox 93 04/11/21 14:01 Oxygen Flow Rate 15 04/11/21 11:16 Body Mass Index 22.7 Const: Other: Constitutional - Awake and Alert, no major distress, unkempt Eyes - PERRLA, EOMI Cardiovascular - S1S2, RRR, No edema Respiratory - dimished throughout both lungs, saturations 90+ on NRB Gastrointestinal - NT / ND; +BS; No rebound or guarding - No CVA tenderness Extremities - no calf tenderness bilaterally, no swelling Musculoskeletal - Normal inspection, normal ROM Skin - Warm/Dry Neurological - Alert & oriented x3, No focal deficit Psychological - Appropriate affect - emotionally currently Results Labs CBC and Chem 7: 04/11/21 11:33 04/11/21 11:33 Labs: Laboratory Results - last 24 hr 04/11/21 04/11/21 04/11/21 11:33 11:33 11:34 MCV 82.0 MCH 25.7 L MCHC 31.4 RDW 16.7 H Plt Count 211 MPV 9.9 Immature Gran % (Auto) 1.1 H Neut % (Auto) 84.6 H Lymph % (Auto) 6.6 L [place] % (Auto) 7.6 Eos % (Auto) 0.0 Baso % (Auto) 0.1 Lymph # (Auto) 1.4 [place] # (Auto) 1.6 H Eos # (Auto) 0.0 Baso # (Auto) 0.0 Abs Immat Gran (auto) 0.24 H Absolute Neuts (auto) 17.9 H Absolute Nucleated RBC 0.000 Nucleated RBC % (auto) 0.0 Smear Tech's Comments VERIFIED Anion Gap 22 H Estim Creat Clear Calc 62.5 Estimated GFR 52 Random Glucose 104 Lactic Acid Calcium 9.7 D Phosphorus 7.4 H Magnesium 2.7 H Total Bilirubin 0.6 Direct Bilirubin 0.2 AST 176 H ALT 54 H Alkaline Phosphatase 55 Total Creatine Kinase 54075 H Total Protein 7.7 Albumin 4.6 D Lipase 18 Urine Opiates Screen Urine Fentanyl Screen Ur Barbiturates Screen Ur Phencyclidine Scrn Ur Amphetamines Screen U Benzodiazepines Scrn Urine Cocaine Screen U Marijuana (THC) Screen Ethyl Alcohol COVID-19 (ALEXX) Negative COVID-19 Clin Com See Note 04/11/21 04/11/21 04/11/21 12:01 13:10 13:10 MCV MCH MCHC RDW Plt Count MPV Immature Gran % (Auto) Neut % (Auto) Lymph % (Auto) [place] % (Auto) Eos % (Auto) Baso % (Auto) Lymph # (Auto) [place] # (Auto) Eos # (Auto) Baso # (Auto) Abs Immat Gran (auto) Absolute Neuts (auto) Absolute Nucleated RBC Nucleated RBC % (auto) Smear Tech's Comments Anion Gap Estim Creat Clear Calc Estimated GFR Random Glucose Lactic Acid 3.6 H* Calcium Phosphorus Magnesium Total Bilirubin Direct Bilirubin AST ALT Alkaline Phosphatase Total Creatine Kinase Total Protein Albumin Lipase Urine Opiates Screen POSITIVE H Urine Fentanyl Screen POSITIVE H Ur Barbiturates Screen Not Detected Ur Phencyclidine Scrn Not Detected Ur Amphetamines Screen Not Detected U Benzodiazepines Scrn Not Detected Urine Cocaine Screen POSITIVE H U Marijuana (THC) Screen POSITIVE H Ethyl Alcohol < 10 COVID-19 (ALEXX) COVID-19 Clin Com Imaging Radiologist's Impressions: Impressions Abdomen/Pelvis CT 04/11/21 11:24 IMPRESSION: 1. Gastric dilatation with intraluminal fluid and food contents. 2. No pneumatosis or free air. No ascites or hematoma. 3. Abdominal organs unremarkable (noncontrast exam). 4. No fracture. 5. CT chest described in separate report. Cervical Spine CT 04/11/21 11:24 IMPRESSION: No acute bony abnormality or prevertebral soft tissue swelling. Chest CT 04/11/21 11:24 IMPRESSION: 1. Extensive bilateral fluffy airspace consolidative opacities and superimposed groundglass opacities greatest lower lobes, greater on right. Lesser involvement right upper lobe and predominantly groundglass opacities right middle lobe and posterior left upper lobe. If patient was asymptomatic prior to trauma, the finding are likely related to combination pulmonary hemorrhage and/or aspiration. If patient had respiratory symptoms prior to trauma, then infectious etiology may be superimposed as well. 2. No mediastinal hematoma. No pericardial effusion. Thoracic aorta normal in caliber. 3. No pneumothorax, pneumomediastinum, or subcutaneous emphysema. No fracture. 4. CT abdomen and pelvis described in separate report. Head CT 04/11/21 11:24 IMPRESSION: 1. No acute intracranial abnormality. 2. Air-fluid level right maxillary sinus. No visible fracture. Assessment and Plan (1) Acute respiratory failure with hypoxia: Status: Acute This is a 35 yo M with a PMH of chronic opiate dependence who was found down in the field and was brought into the ED by paramedics. He was given IV and IM narcan in the field, but it is unclear how much. His work up in the ED reveals significant CT chest findings on the R lung, likely a results of aspiration. He will be admitted for further work up. 1. Acute respiratory failure with hypoxia due to accidental opiate overdose resulting in aspiration continue oxygen - NRB for now and wean as tolerated start IV steroids for suspcted pneumonitis empiric Unasyn -- patient is not severely septic as this time 2. GARRY due to rhabdomyolysis 2a. Mild hyperK SCr in October 2020 was 0.82, now presenting with SCr 1.52 CPK >10k, started on bicarb drip @ 100 cc/hr + NS @ 150/hr trend if not improved, consult nephrology repeat BMP this afternoon 3. Rhabdomyolysis likely secondary to [place] / being down in the field fluids as above 4. Accidental Opiate overdose/polysubstance abuse previously on suboxone suspect he will withdraw at some point currently he does not want any suboxone will involve addiction medicine Full Code DVT pptx, subcut heparin Quality Stroke Does the patient have a stroke diagnosis?: No VTE Prior VTE?: No VTE Risk Level:: Medical - moderate - high VTE Device Contraindication: Treatment Not Tolerated VTE Drug Contraindication: N/A - Med Ordered
[2021-04-11] MEDS: Heparin Sodium,Porcine 5,000 UNIT/ML VIAL 5000 UNIT SUBCUT ×2 (15:00→21:39)
[2021-04-11] MEDS: methylPREDNISolone Sod Succ 125 MG/2 ML VIAL 60 MG IVPUSH ×2 (15:00→21:39)
[2021-04-11] MEDS: 0.9 % Sodium Chloride 1,000 ML 150 ML IVCONT (15:01)
[2021-04-11 15:12] LABS: Anion Gap 14 (12-20); Blood Urea Nitrogen 27 mg/dL (9-16); Carbon Dioxide 21 mmol/L (22-29); Chloride 105 mmol/L (96-108); Estimated Glomerular Filt Rate > 60; Glucose Random 131 mg/dL (60-115); Sodium 135 mmol/L (135-145)
[2021-04-11 15:24] LABS: Reflex Lactate? Lactic Acid Added
--- NOTE | 2021-04-11 15:29 | PC.NURSE ---
Report given to Claritza HAHN
[2021-04-11 17:29] LABS: ~Lactic Acid-LAB USE ONLY 2.7 mmol/L (0.5-2.0)
[2021-04-11] MEDS: hydrOXYzine HCL 25 MG TABLET PO (17:43)
[2021-04-11 18:48] LABS: Reflex Lactate? 2 Y
[2021-04-11] MEDS: Ampicillin Sodium/Sulbactam Na 3 GM in 0.9 % Sodium Chloride 100 ML IV (18:48)
[2021-04-11 20:34] LABS: ~Lactic Acid-LAB USE ONLY 4.3 mmol/L (0.5-2.0)
[2021-04-11] MEDS: traZODone HCL 25 MG HALFTAB PO (21:39)
[2021-04-12] MEDS: 0.9 % Sodium Chloride 1,000 ML 150 ML IVCONT ×4 (01:11→21:37)
[2021-04-12] MEDS: Ampicillin Sodium/Sulbactam Na 3 GM in 0.9 % Sodium Chloride 100 ML IV ×4 (01:14→19:00)
[2021-04-12 04:00] VITALS: BP 133/83; PULSE 110; RESP 18; TEMP 36.6; O2SAT 94
[2021-04-12] MEDS: methylPREDNISolone Sod Succ 125 MG/2 ML VIAL 60 MG IVPUSH ×3 (05:59→21:37)
[2021-04-12] MEDS: Heparin Sodium,Porcine 5,000 UNIT/ML VIAL 5000 UNIT SUBCUT ×3 (05:59→21:37)
[2021-04-12] MEDS: hydrOXYzine HCL 25 MG TABLET PO ×2 (07:44→15:36)
[2021-04-12] MEDS: Acetaminophen 325 MG TABLET 650 MG PO ×2 (07:44→15:36)
[2021-04-12] MEDS: 0.9 % Sodium Chloride Flush 3 ML SYRINGE IVFLUSH (07:45)
[2021-04-12 07:50] VITALS: BP 102/73; PULSE 101; RESP 18; TEMP 36.4; O2SAT 96
[2021-04-12 08:50] LABS: PLT CLUMP 1; Red Cell Distribution Width 16.5 % (11.0-16.0)
[2021-04-12 08:52] LABS: Mean Corpuscular HGB Conc 31.6 g/dl (31.0-36.0); Mean Corpuscular Hemoglobin 25.8 pg (27.0-33.0); Mean Corpuscular Volume 81.6 fL (80-98); Mean Platelet Volume 10.8 fL (9.4-12.4); Platelet Count 114 X10*3/uL (160-400); Red Blood Count 4.07 X10*6/uL (4.60-5.80)
[2021-04-12 08:54] LABS: Hematocrit 33.2 % (42-52); Hemoglobin 10.5 g/dl (14.0-18.0); White Blood Count 8.1 X10*3/uL (4.8-10.8)
[2021-04-12 09:09] LABS: Anion Gap 11 (12-20); Blood Urea Nitrogen 15 mg/dL (9-16); Calcium 8.5 mg/dL (8.4-10.2); Carbon Dioxide 31 mmol/L (22-29); Chloride 99 mmol/L (96-108); Creatinine Clr Calc Pharmacy 131.9; Estimated Glomerular Filt Rate > 60; Glucose Random 133 mg/dL (60-115); Potassium 5.2 mmol/L (3.3-5.1); Sodium 136 mmol/L (135-145)
--- NOTE | 2021-04-12 09:17 | MHC.RECOVRN ---
35 year old male presented to [facility] ED via EMS on 04/11 due to overdose cocaine and heroin. Given Narcan by EMS. sating 76 on RA per manager van. Upon evaluation, pt admitted due to accidental overdose, rhabdomyolysis, and aspiration pneumonia due to vomit.? T/w met with pt in 371 after consult placed to Addiction Medicine. Pt sleeping, woke to voice. Pt reports recently being at [facility] and overdose occurred after a period in recovery. Pt educated regarding decreased tolerance after time in recovery. Pt reports using heroin, IV, 4 bags total, which resulted in OD, also reports cocaine use.? Pt denies withdrawal symptoms and states I won't get sick. ? Pt is not interested in MOUD at this time. Pt has been prescribed Suboxone in the past through the [facility].? Pt left to rest, will f/u later today with Jamilah Jean APRN.? Case discussed with JAE.?
[2021-04-12 09:29] LABS: Alanine Aminotransferase 79 U/L (0-40); Albumin Level 3.8 g/dL (3.5-5.0); Alkaline Phosphatase 33 U/L (39-117); Aspartate Amino Transferase 246 U/L (5-37); Bilirubin Direct 0.3 mg/dL (0.0-0.5); Bilirubin Total 0.7 mg/dL (0.0-1.0); Total Protein 6.2 g/dL (6.5-8.0)
--- NOTE | 2021-04-12 09:59 | ECG_ITS ---
Test Reason : LT SIDE PAIN Blood Pressure : / mmHG Vent. Rate : 105 BPM Atrial Rate : 105 BPM P-R Int : 152 ms QRS Dur : 086 ms QT Int : 324 ms P-R-T Axes : 026 073 018 degrees QTc Int : 428 ms Sinus tachycardia Otherwise normal ECG When compared with ECG of 11-APR-2021 11:41, No significant change was found Referred By: Elena Myers Electronically Signed By:KELL MAGANA
--- NOTE | 2021-04-12 10:24 | HO.PM.IMPN ---
Subjective Subjective Date of Service: 04/12/21 Interval History: seen and examined this AM complaints of L-sided chest pain, not changed with movement reports cough and shortness of breath denies fevers or chills denies opiate withdrawal symptoms Review of Systems General - no fevers or chills Cardiovascular - left sided chest pain Respiratory - +SOB / cough Abdominal- no abdominal pain, nausea, vomiting, diarrhea Physical Exam Vital Signs: Vital Signs: Last Vital Signs Temp 97.6 F 04/12/21 07:50 Pulse 101 H 04/12/21 07:50 Resp 18 04/12/21 07:50 BP 102/73 04/12/21 07:50 Pulse Ox 96 04/12/21 07:50 Oxygen Flow Rate 15 04/11/21 11:16 Body Mass Index 22.7 Const: Other: General - no acute distress, appears comfortable Cardiovascular - regular rate and rhythm, S1-S2 Lungs - clear bilaterally; satuations dropped to mid 80s on RA, placed in 4L with stats mid 90s Abdomen - soft, nontender, no rebound or guarding Extremities - no edema bilaterally Neuro - awake and alert, no focal deficits Objective Data Current Medications Generic Name Dose Route Start Last Admin Trade Name Freq PRN Reason Stop Dose Admin Acetaminophen 650 mg 04/11/21 14:29 04/12/21 07:44 Acetaminophen 325 Mg Tablet PO 650 mg Q6H PRN Administration Pain, Mild (Pain Scale 1-3) Heparin Sodium (Porcine) 5,000 unit 04/11/21 14:30 04/12/21 05:59 Heparin Sodium,Porcine 5,000 Unit/Ml Vial SUBCUT 5,000 unit Q8H TONE Administration Hydroxyzine HCl 25 mg 04/11/21 17:30 04/12/21 07:44 Hydroxyzine Hcl 25 Mg Tablet PO 25 mg Q8H PRN Administration anxiety Sodium Chloride 1,000 mls @ 150 mls/hr 04/11/21 13:45 04/12/21 07:35 Ns IVCONT Not Given .Q6H40M TONE Ampicillin Sodium/Sulbactam 100 mls @ 200 mls/hr 04/11/21 19:00 04/12/21 06:56 Sodium 3 gm/ Sodium Chloride IV Infused Q6H TONE Infusion Methylprednisolone Sodium Succinate 60 mg 04/11/21 14:30 04/12/21 05:59 Methylprednisolone Sod Succ 125 Mg/2 Ml Vial IVPUSH 60 mg Q8H TONE Administration Ondansetron HCl 4 mg 04/11/21 14:29 Ondansetron Hcl 4 Mg/2 Ml Vial IVPUSH Q8H PRN Nausea and Vomiting Sodium Chloride 3 ml 04/11/21 16:00 04/12/21 07:45 0.9 % Sodium Chloride Flush 3 Ml Syringe IVFLUSH 3 ml QSHIFT TONE Administration Trazodone HCl 25 mg 04/11/21 21:00 04/11/21 21:39 Trazodone Hcl 25 Mg Halftab PO 25 mg BEDTIME TONE Administration Labs CBC & Chem 7: 04/12/21 07:59 04/12/21 07:59 Labs: Laboratory Results - last 24 hr 04/11/21 04/11/21 04/11/21 11:33 11:33 11:34 MCV 82.0 MCH 25.7 L MCHC 31.4 RDW 16.7 H Plt Count 211 MPV 9.9 Immature Gran % (Auto) 1.1 H Neut % (Auto) 84.6 H Lymph % (Auto) 6.6 L [place] % (Auto) 7.6 Eos % (Auto) 0.0 Baso % (Auto) 0.1 Lymph # (Auto) 1.4 [place] # (Auto) 1.6 H Eos # (Auto) 0.0 Baso # (Auto) 0.0 Abs Immat Gran (auto) 0.24 H Absolute Neuts (auto) 17.9 H Absolute Nucleated RBC 0.000 Nucleated RBC % (auto) 0.0 Smear Tech's Comments VERIFIED Anion Gap 22 H Estim Creat Clear Calc 62.5 Estimated GFR 52 Random Glucose 104 Lactic Acid Lactic Acid Fup @ 2Hr Lactic Acid Fup @ 4Hr Calcium 9.7 D Phosphorus 7.4 H Magnesium 2.7 H Total Bilirubin 0.6 Direct Bilirubin 0.2 AST 176 H ALT 54 H Alkaline Phosphatase 55 Total Creatine Kinase 52472 H Total Protein 7.7 Albumin 4.6 D Lipase 18 Urine Opiates Screen Urine Fentanyl Screen Ur Barbiturates Screen Ur Phencyclidine Scrn Ur Amphetamines Screen U Benzodiazepines Scrn Urine Cocaine Screen U Marijuana (THC) Screen Ethyl Alcohol COVID-19 (ALEXX) Negative COVID-19 Clin Com See Note 04/11/21 04/11/21 04/11/21 12:01 13:10 13:10 MCV MCH MCHC RDW Plt Count MPV Immature Gran % (Auto) Neut % (Auto) Lymph % (Auto) [place] % (Auto) Eos % (Auto) Baso % (Auto) Lymph # (Auto) [place] # (Auto) Eos # (Auto) Baso # (Auto) Abs Immat Gran (auto) Absolute Neuts (auto) Absolute Nucleated RBC Nucleated RBC % (auto) Smear Tech's Comments Anion Gap Estim Creat Clear Calc Estimated GFR Random Glucose Lactic Acid 3.6 H* Lactic Acid Fup @ 2Hr Lactic Acid Fup @ 4Hr Calcium Phosphorus Magnesium Total Bilirubin Direct Bilirubin AST ALT Alkaline Phosphatase Total Creatine Kinase Total Protein Albumin Lipase Urine Opiates Screen POSITIVE H Urine Fentanyl Screen POSITIVE H Ur Barbiturates Screen Not Detected Ur Phencyclidine Scrn Not Detected Ur Amphetamines Screen Not Detected U Benzodiazepines Scrn Not Detected Urine Cocaine Screen POSITIVE H U Marijuana (THC) Screen POSITIVE H Ethyl Alcohol < 10 COVID-19 (ALEXX) COVID-19 [employer] 04/11/21 04/11/21 04/11/21 14:38 16:41 19:45 MCV MCH MCHC RDW Plt Count MPV Immature Gran % (Auto) Neut % (Auto) Lymph % (Auto) [place] % (Auto) Eos % (Auto) Baso % (Auto) Lymph # (Auto) [place] # (Auto) Eos # (Auto) Baso # (Auto) Abs Immat Gran (auto) Absolute Neuts (auto) Absolute Nucleated RBC Nucleated RBC % (auto) Smear Tech's Comments Anion Gap 14 Estim Creat Clear Calc 84.0 Estimated GFR > 60 Random Glucose 131 H Lactic Acid Lactic Acid Fup @ 2Hr 2.7 H* Lactic Acid Fup @ 4Hr 4.3 H* Calcium 8.0 L D Phosphorus Magnesium Total Bilirubin Direct Bilirubin AST ALT Alkaline Phosphatase Total Creatine Kinase Total Protein Albumin Lipase Urine Opiates Screen Urine Fentanyl Screen Ur Barbiturates Screen Ur Phencyclidine Scrn Ur Amphetamines Screen U Benzodiazepines Scrn Urine Cocaine Screen U Marijuana (THC) Screen Ethyl Alcohol COVID-19 (ALEXX) COVID-19 Drink[employer]endo 04/12/21 04/12/21 04/12/21 07:59 07:59 07:59 MCV 81.6 MCH 25.8 L MCHC 31.6 RDW 16.5 H Plt Count 114 L D MPV 10.8 Immature Gran % (Auto) Neut % (Auto) Lymph % (Auto) [place] % (Auto) Eos % (Auto) Baso % (Auto) Lymph # (Auto) [place] # (Auto) Eos # (Auto) Baso # (Auto) Abs Immat Gran (auto) Absolute Neuts (auto) Absolute Nucleated RBC 0.000 Nucleated RBC % (auto) 0.0 Smear Tech's Comments Anion Gap 11 L Estim Creat Clear Calc 131.9 Estimated GFR > 60 Random Glucose 133 H Lactic Acid Lactic Acid Fup @ 2Hr Lactic Acid Fup @ 4Hr Calcium 8.5 D Phosphorus Magnesium Total Bilirubin 0.7 Direct Bilirubin 0.3 AST 246 H ALT 79 H Alkaline Phosphatase 33 L D Total Creatine Kinase 13743 H Total Protein 6.2 L Albumin 3.8 Lipase Urine Opiates Screen Urine Fentanyl Screen Ur Barbiturates Screen Ur Phencyclidine Scrn Ur Amphetamines Screen U Benzodiazepines Scrn Urine Cocaine Screen U Marijuana (THC) Screen Ethyl Alcohol COVID-19 (ALEXX) COVID-19 Clin Com Assessment and Plan (1) Acute respiratory failure with hypoxia: Status: Acute Assessment and Plan: ?This is a 35 yo M with a PMH of chronic opiate dependence who was found down in the field and was brought into the ED by paramedics. He was given IV and IM narcan in the field, but it is unclear how much. His work up in the ED reveals significant CT chest findings on the R lung, likely a results of aspiration. He will be admitted for further work up. 1. Acute respiratory failure with hypoxia due to accidental opiate overdose resulting in aspiration pneumonitis weaned from NRB to 4L NC (saturations still drop to mid 80s on RA) continue solu-medrol - 60 q8 hours today, possibly taper starting tomorrow continue empiric Unasyn 2. GARRY due to rhabdomyolysis 2a. Mild hyperK SCr in October 2020 was 0.82, now presenting with SCr 1.52 continue NS @ 150 cc/hr 3. Rhabdomyolysis likely secondary to talavera / being down in the field fluids as above 4. Accidental Opiate overdose/polysubstance abuse previously on suboxone denies withdrawal -- not interested in MAT 5. L-sided chest pain check EKG / Trop Full Code DVT pptx, subcut heparin Quality Stroke Does the patient have a stroke diagnosis?: No VTE Prior VTE?: No VTE Risk Level:: Medical - moderate - high VTE Device Contraindication: Treatment Not Tolerated VTE Drug Contraindication: N/A - Med Ordered
[2021-04-12 11:53] VITALS: BP 118/83; PULSE 96; RESP 17; TEMP 36.4; O2SAT 100
[2021-04-12 12:21] LABS: Troponin-I High Sensitivity 45.4 ng/L (<3.5-35.0)
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
--- NOTE | 2021-04-12 14:03 | MHC.CLN ---
Addendum entered by Yudelka Sandy, ALLA 04/12/21 14:04: ENSURE 240 ML TID PROVIDES 1050 KCAL, 60 G PROTEIN. Original Note: NUTRITION DIET ADVANCED FROM FULL LIQUID TO REGULAR WITH ENSURE SUPPLEMENT.
[2021-04-12 15:23] VITALS: BP 119/76; PULSE 107; RESP 17; TEMP 36.5; O2SAT 96
--- NOTE | 2021-04-12 15:48 | MHC.CM.PN ---
CM MET WITH PT WHO REPORTS HE IS INDEPENDENT WITH CARE AND MOBILITY AND HAS NO COMMUNITY SERVICES. PT REPORTS HE IS CURRENTLY HOMELESS . PT IS NOT INTERESTED IN ANY SA OR MH TREATMENT HOWEVER HE IS INTERESTED IN GOING TO [place]. PT WILL NEED ASSISTANCE WITH TRANSPORTATION
[2021-04-12 16:29] LABS: Troponin-I High Sensitivity 40.6 ng/L (<3.5-35.0)
[2021-04-12 19:32] VITALS: BP 135/84; PULSE 104; RESP 18; TEMP 36.5; O2SAT 98
[2021-04-12] MEDS: traZODone HCL 25 MG HALFTAB PO (21:35)
[2021-04-12 23:37] VITALS: BP 127/68; PULSE 92; RESP 18; TEMP 36.4; O2SAT 100
[2021-04-13] MEDS: Ampicillin Sodium/Sulbactam Na 3 GM in 0.9 % Sodium Chloride 100 ML IV ×4 (00:34→19:13)
[2021-04-13 03:17] VITALS: BP 123/79; PULSE 81; RESP 18; TEMP 36.1; O2SAT 100
[2021-04-13] MEDS: 0.9 % Sodium Chloride 1,000 ML 150 ML IVCONT ×3 (05:24→18:39)
[2021-04-13] MEDS: hydrOXYzine HCL 25 MG TABLET PO ×3 (05:29→20:31)
[2021-04-13] MEDS: Acetaminophen 325 MG TABLET 650 MG PO ×3 (05:29→18:37)
[2021-04-13] MEDS: Heparin Sodium,Porcine 5,000 UNIT/ML VIAL 5000 UNIT SUBCUT ×3 (05:31→23:06)
[2021-04-13] MEDS: methylPREDNISolone Sod Succ 125 MG/2 ML VIAL 60 MG IVPUSH (05:31)
[2021-04-13 07:02] LABS: Alanine Aminotransferase 77 U/L (0-40); Albumin Level 3.6 g/dL (3.5-5.0); Alkaline Phosphatase 35 U/L (39-117); Anion Gap 11 (12-20); Aspartate Amino Transferase 146 U/L (5-37); Bilirubin Direct < 0.2 mg/dL (0.0-0.5); Bilirubin Total 0.3 mg/dL (0.0-1.0); Blood Urea Nitrogen 19 mg/dL (9-16); Calcium 8.6 mg/dL (8.4-10.2); Carbon Dioxide 28 mmol/L (22-29); Chloride 107 mmol/L (96-108); Creatinine Clr Calc Pharmacy 143.9; Estimated Glomerular Filt Rate > 60; Glucose Random 142 mg/dL (60-115); Potassium 4.5 mmol/L (3.3-5.1); Sodium 141 mmol/L (135-145); Total Protein 6.2 g/dL (6.5-8.0)
[2021-04-13 07:48] LABS: Hematocrit 31.5 % (42-52); Hemoglobin 9.9 g/dl (14.0-18.0); Imm Gran Abs Auto 0.06 X10*3/uL (0.00-0.03); Imm Gran Pct Auto 0.6 % (0.0-0.4); Lymphocytes Absolute Auto 0.8 X10*3/uL (1.2-4.9); Lymphocytes Percent Auto 7.9 % (20-40); Mean Corpuscular HGB Conc 31.4 g/dl (31.0-36.0); Mean Corpuscular Hemoglobin 26.1 pg (27.0-33.0); Mean Corpuscular Volume 82.9 fL (80-98); Mean Platelet Volume 10.7 fL (9.4-12.4); Monocytes Absolute Auto 0.7 X10*3/uL (0.1-1.2); Monocytes Percent Auto 7.1 % (2-11); Neutrophils Absolute Auto 8.2 X10*3/uL (2.0-8.3); Neutrophils Percent Auto 84.4 % (45-73); Platelet Count 137 X10*3/uL (160-400); Red Cell Distribution Width 16.9 % (11.0-16.0); White Blood Count 9.7 X10*3/uL (4.8-10.8)
[2021-04-13 08:00] VITALS: BP 129/92; PULSE 85; RESP 16; TEMP 36.5; O2SAT 100
[2021-04-13] MEDS: 0.9 % Sodium Chloride Flush 3 ML SYRINGE IVFLUSH (08:13)
--- NOTE | 2021-04-13 10:30 | CA_ITS ---
Transthoracic Echocardiogram Patient (Last, First, Middle): Dao Bradshaw, Gender: Male Date of : 1985 Age: 35 Procedure Date: 04/13/2021 Procedure Type: Transthoracic Echocardiogram Location: S3E Height: 170.18 cm Weight: 65.77 kg BSA: 1.76 m2 Heart Rate: bpm BP: 123 / 83 mmHg Distribution Field Engineer: MIK Cedillo MD: Elena RAYGOZA Symptoms: chest pain Study Quality: Good Conclusions: - Normal left ventricular cavity size. There is normal left ventricular wall thickness. The left ventricular systolic function is mildly decreased. - Normal right ventricular cavity size and systolic function. - Significantly elevated right atrial pressure. Mild to moderate pulmonary hypertension is present. Findings Left Ventricle Normal left ventricular cavity size. There is normal left ventricular wall thickness. The left ventricular systolic function is mildly decreased. The visually estimated ejection fraction is between 40-45%. There is mild global hypokinesis. Diastolic function is normal for age. Right Ventricle Normal right ventricular cavity size and systolic function. Atria Both atria are normal in size. Aortic Valve Normal aortic valve structure and function. There is no aortic valve stenosis. There is no aortic valve regurgitation. Mitral Valve Normal mitral valve structure and function. There is trace mitral valve regurgitation. There is no mitral valve stenosis. Pulmonic Valve The pulmonic valve is likely normal. Tricuspid Valve Normal tricuspid valve structure and function. There is mild tricuspid valve regurgitation. Significantly elevated right atrial pressure. Mild to moderate pulmonary hypertension is present. Great Vessels All visible segments of the aorta are normal in size. The visualized portions of the pulmonary artery and branches are normal. Venous The inferior vena cava is dilated and collapses less than 50% with inspiration. Pericardium/Pleural There is no evidence of pericardial effusion. Prior Study Comparison No prior study available for comparison. Measurements 2D Linear Measurements IVSd: 1.05 0.6-0.9/0.6-1.0 cm LVIDd: 5.73 3.9-5.3/4.2-5.9 cm LVIDd Index: 3.26 2.4-3.2/2.2-3.1 cm/m2 LVIDs: 3.81 2.0-3.6 cm LVPWd: 1.04 0.7-1.1 cm Ao Root: 3.30 2.1-3.5 cm LA Diam: 3.80 2.7-3.8/3.0-4.0 cm LAIDs Index: 2.16 1.5-2.3 cm/m2 LV Mass: 301.68 67-162/88-224 g LV Mass Index: 171.41 43-95/49-115 g/m2 LVOT Diam: 2.30 3.0+(-)1.3 cm 2D Systolic Function EF 4C: 40.50 >55% EF 2C: 52.40 >55% Mitral Valve MV Pk E: 0.85 MV PK A: 0.94 MV Decel Time: 201.00 E/A: 0.90 E'Lateral: 14.30 E'Medial: 9.79 E/E' Med: 8.70 E/E' Lat: 6.00 PHT: 59.00 MVA PHT: 3.73 Decel Walsh: 4.23 Aortic Valve AoV Pk Adin: 1.88 AoV Mn Adin: 1.27 AoV VTI: 0.32 AoV Pk Grad: 14.00 Aov Mn Grad: 8.00 MELINA Cont.VTI: 2.11 LVOT LVOT Pk Adin: 0.93 LVOT Mn Adin: 0.62 LVOT VTI: 0.16 LVOT Pk Grad: 3.00 LVOT Mn Grad: 2.00 LVOT Diam: 2.30 LVOT Area: 4.15 Diastolic Function MV Pk E: 0.85 MV Pk A: 0.94 E/A: 0.90 E'Medial: 9.79 E/E' Med: 8.70 E' Laterial: 14.30 E/E' Lat: 6.00 Right Ventricle TAPSE (mm): 24.00 TVS' Adin: 12.30 Tricuspid Valve TR Pk Adin: 2.87 TR Pk Grad: 33.00 RA Press: 15.00 RVSP: 48.00 Great Vessels Aorta Ao Root-2D: 3.30 2.0-3.7 cm Ao Asc: 3.00 2.1-3.4 cm Ao Arch: 2.80 Updated in Other Vendor System with Status of Final Gonzalo Magaña MD electronically signed on 04/13/2021 7:57:43 PM with status of Final
[2021-04-13 11:56] VITALS: BP 123/83; PULSE 92; RESP 18; TEMP 36.9; O2SAT 98
[2021-04-13 12:04] LABS: MANUAL DIFF FLAG NO
--- NOTE | 2021-04-13 13:26 | HO.PM.IMPN ---
Subjective Subjective Date of Service: 04/13/21 Interval History: Seen and examined this morning No overnight events Reports small amount hemoptysis this morning. Still reporting chest pain Denies shortness of breath. Ongoing cough Review of Systems Review of Systems: Yes all other systems are reviewed and are negative Constitutional Constitutional: Denies chills and Denies fever(s) Cardiovascular Cardiovascular: Reports chest pain Respiratory Respiratory: Reports cough and Reports hemoptysis Gastrointestinal Gastrointestinal: Denies abdominal pain Physical Exam Vital Signs: Vital Signs: Last Vital Signs Temp 98.5 F 04/13/21 11:56 Pulse 92 04/13/21 11:56 Resp 18 04/13/21 11:56 BP 123/83 04/13/21 11:56 Pulse Ox 98 04/13/21 11:56 Oxygen Flow Rate 15 04/11/21 11:16 Body Mass Index 22.7 Const: General: no acute distress, awake and Physically active Nutritional Appearance: well nourished Orientation/consciousness: patient oriented x3 HENMT: Head: Yes normocephalic and Yes atraumatic Eyes: Sclerae: sclerae normal Resp: Effort & Inspection: normal respiratory effort and no respiratory distress Auscultation: clear to auscultation bilaterally Cardio: Rate: regular rate Rhythm: regular rhythm GI: Palpation (GI): Soft to palpation and nontender Neuro: General: patient oriented x3 Cranial nerves: Yes CN's II-XII intact bilaterally and Yes Bilaterally intact EOM present Objective Data Current Medications Generic Name Dose Route Start Last Admin Trade Name Freq PRN Reason Stop Dose Admin Acetaminophen 650 mg 04/11/21 14:29 04/13/21 12:12 Acetaminophen 325 Mg Tablet PO 650 mg Q6H PRN Administration Pain, Mild (Pain Scale 1-3) Heparin Sodium (Porcine) 5,000 unit 04/11/21 14:30 04/13/21 05:31 Heparin Sodium,Porcine 5,000 Unit/Ml Vial SUBCUT 5,000 unit Q8H TONE Administration Hydroxyzine HCl 25 mg 04/11/21 17:30 04/13/21 12:19 Hydroxyzine Hcl 25 Mg Tablet PO 25 mg Q8H PRN Administration anxiety Sodium Chloride 1,000 mls @ 150 mls/hr 04/11/21 13:45 04/13/21 12:15 Ns IVCONT 150 mls/hr .Q6H40M TONE Administration Ampicillin Sodium/Sulbactam 100 mls @ 200 mls/hr 04/11/21 19:00 04/13/21 06:43 Sodium 3 gm/ Sodium Chloride IV Infused Q6H TONE Infusion Methylprednisolone Sodium Succinate 60 mg 04/11/21 14:30 04/13/21 05:31 Methylprednisolone Sod Succ 125 Mg/2 Ml Vial IVPUSH 60 mg Q8H TONE Administration Ondansetron HCl 4 mg 04/11/21 14:29 Ondansetron Hcl 4 Mg/2 Ml Vial IVPUSH Q8H PRN Nausea and Vomiting Sodium Chloride 3 ml 04/11/21 16:00 04/13/21 08:13 0.9 % Sodium Chloride Flush 3 Ml Syringe IVFLUSH 3 ml QSHIFT TONE Administration Trazodone HCl 25 mg 04/11/21 21:00 04/12/21 21:35 Trazodone Hcl 25 Mg Halftab PO 25 mg BEDTIME TONE Administration Labs CBC & Chem 7: 04/13/21 07:23 04/13/21 05:45 Labs: Laboratory Results - last 24 hr 04/12/21 04/13/21 04/13/21 15:35 05:45 07:23 MCV 82.9 MCH 26.1 L MCHC 31.4 RDW 16.9 H Plt Count 137 L MPV 10.7 Immature Gran % (Auto) 0.6 H Neut % (Auto) 84.4 H Lymph % (Auto) 7.9 L Swisher % (Auto) 7.1 Eos % (Auto) 0.0 Baso % (Auto) 0.0 Lymph # (Auto) 0.8 L Swisher # (Auto) 0.7 Eos # (Auto) 0.0 Baso # (Auto) 0.0 Abs Immat Gran (auto) 0.06 H Absolute Neuts (auto) 8.2 Absolute Nucleated RBC 0.000 Nucleated RBC % (auto) 0.0 Anion Gap 11 L Estim Creat Clear Calc 143.9 Estimated GFR > 60 Random Glucose 142 H Calcium 8.6 Total Bilirubin 0.3 Direct Bilirubin < 0.2 AST 146 H ALT 77 H Alkaline Phosphatase 35 L Total Creatine Kinase 3132 H D Troponin I High Sens 40.6 H* Total Protein 6.2 L Albumin 3.6 Microbiology Microbiology Results: Microbiology 04/11/21 13:30 Blood Culture - Preliminary Blood - Venous No growth after 24 hours. 04/11/21 13:10 Blood Culture - Preliminary Blood - Venous No growth after 24 hours. Assessment and Plan (1) Acute respiratory failure with hypoxia: Status: Acute Assessment and Plan: ?This is a 35 yo M with a PMH of chronic opiate dependence who was found down in the field and was brought into the ED by paramedics. He was given IV and IM narcan in the field, but it is unclear how much. His work up in the ED reveals significant CT chest findings on the R lung, likely a results of aspiration. He will be admitted for further work up. 1. Acute respiratory failure with hypoxia 1a. hemoptysis due to accidental opiate overdose resulting in aspiration pneumonitis weaned from NRB to 4L NC (saturations still drop to mid 80s on RA) taper solu-medrol to bid continue empiric Unasyn follow cbc 2. GARRY due to rhabdomyolysis 2a. Mild hyperK Resolved 3. Rhabdomyolysis likely secondary to talavera / being down in the field CPK trending down to 3132 continue IVF 4. Accidental Opiate overdose/polysubstance abuse previously on suboxone denies withdrawal -- not interested in MAT -atarax prn -addiction medicine consult- request narcan at time of d/c 5. Persistant L-sided chest pain EKG non-ischemic trops flat -echo -cardiology consult 6. transaminitis LFTs trending down Full Code DVT pptx, subcut heparin Attending: Dr. Wadsworth Quality Stroke Does the patient have a stroke diagnosis?: No VTE Prior VTE?: No VTE Risk Level:: Medical - moderate - high VTE Device Contraindication: Treatment Not Tolerated VTE Drug Contraindication: N/A - Med Ordered
[2021-04-13 16:00] VITALS: BP 138/90; PULSE 88; RESP 20; TEMP 38.1; O2SAT 96
[2021-04-13 20:00] VITALS: BP 127/77; PULSE 97; RESP 20; TEMP 38.2; O2SAT 97
[2021-04-13] MEDS: methylPREDNISolone Sod Succ 40 MG/ML VIAL IVPUSH (20:31)
[2021-04-13] MEDS: traZODone HCL 25 MG HALFTAB PO (20:31)
[2021-04-13 22:51] VITALS: BP 129/87; PULSE 64; RESP 18; TEMP 36.2; O2SAT 98
--- NOTE | 2021-04-14 | ECG_ITS ---
Test Reason : HEART BLOC Blood Pressure : / mmHG Vent. Rate : 059 BPM Atrial Rate : 059 BPM P-R Int : 150 ms QRS Dur : 086 ms QT Int : 406 ms P-R-T Axes : 015 067 018 degrees QTc Int : 401 ms Sinus bradycardia Otherwise normal ECG When compared with ECG of 12-APR-2021 10:08, Vent. rate has decreased BY 46 BPM Referred By: Juliet Huitron Electronically Signed By:
[2021-04-14] MEDS: Ampicillin Sodium/Sulbactam Na 3 GM in 0.9 % Sodium Chloride 100 ML IV ×3 (00:49→12:13)
--- NOTE | 2021-04-14 00:52 | P.EN_ITS ---
Event Note Date of Service: 04/14/21 Event Note: pt had mucltiple pauses and recorded y JUVENILE OFFICER to have mobitz type 2 h eart block w heart rate in the 40s. pt completely asymptomatic will obtain EKG MAg and potassium levels recopnsult cardiology will place pacers pads on pt
--- NOTE | 2021-04-14 00:52 | PM.EVENT ---
Event Note Date of Service: 04/14/21 Event Note: pt had mucltiple pauses and recorded y SHANKER OUT to have mobitz type 2 heart block w heart rate in the 40s. pt completely asymptomatic will obtain EKG MAg and potassium levels recopnsult cardiology will place pacers pads on pt
[2021-04-14] MEDS: Acetaminophen 325 MG TABLET 650 MG PO (01:03)
[2021-04-14] MEDS: 0.9 % Sodium Chloride 1,000 ML 150 ML IVCONT ×2 (01:27→08:55)
[2021-04-14 01:53] VITALS: BP 151/80; PULSE 64; RESP 18; TEMP 36.8; O2SAT 98
[2021-04-14 02:06] LABS: Anion Gap 11 (12-20); Blood Urea Nitrogen 21 mg/dL (9-16); Calcium 8.6 mg/dL (8.4-10.2); Carbon Dioxide 26 mmol/L (22-29); Chloride 108 mmol/L (96-108); Creatinine Clr Calc Pharmacy 131.9; Estimated Glomerular Filt Rate > 60; Glucose Random 135 mg/dL (60-115); Magnesium 2.3 mg/dL (1.6-2.6); Potassium 4.4 mmol/L (3.3-5.1); Sodium 141 mmol/L (135-145)
[2021-04-14 02:13] LABS: Troponin-I High Sensitivity 15.1 ng/L (<3.5-35.0)
[2021-04-14] MEDS: LORazepam 2 MG/ML VIAL 0.5 MG IVPUSH (02:18)
--- NOTE | 2021-04-14 02:28 | PC.NURSE ---
Pt transferred from med surg due to new onset Mobitz Type II. Arrived on [facility] at 0200. C/o pleural chest pain 3/10 recent aspiration and overdose. Pt on tele monitor with pacer pads on chest. Lung sounds diminished throughout. No edema present. VSS. Received Lorazepam 0.5 mg IVP Once due to restlessness/anxiety. Pt sinus ni on tele. A&O x3. Denied SI/HI.
[2021-04-14] MEDS: Heparin Sodium,Porcine 5,000 UNIT/ML VIAL 5000 UNIT SUBCUT ×2 (05:29→14:31)
[2021-04-14] MEDS: hydrOXYzine HCL 25 MG TABLET PO (05:30)
[2021-04-14] MEDS: traMADoL HCL 50 MG TABLET PO (06:31)
[2021-04-14 06:36] LABS: Hematocrit 31.6 % (42-52); Mean Corpuscular HGB Conc 31.6 g/dl (31.0-36.0); Mean Corpuscular Hemoglobin 26.1 pg (27.0-33.0); Mean Corpuscular Volume 82.5 fL (80-98); Mean Platelet Volume 11.1 fL (9.4-12.4); NRBC Pct Auto 0.2 /100WBC (0.0-0.2); Platelet Count 167 X10*3/uL (160-400); Red Blood Count 3.83 X10*6/uL (4.60-5.80); Red Cell Distribution Width 17.2 % (11.0-16.0); White Blood Count 11.9 X10*3/uL (4.8-10.8)
[2021-04-14 07:20] LABS: Anion Gap 10 (12-20); Blood Urea Nitrogen 19 mg/dL (9-16); Calcium 8.1 mg/dL (8.4-10.2); Carbon Dioxide 26 mmol/L (22-29); Chloride 108 mmol/L (96-108); Creatinine Clr Calc Pharmacy 135.7; Estimated Glomerular Filt Rate > 60; Glucose Random 130 mg/dL (60-115); Potassium 4.2 mmol/L (3.3-5.1); Sodium 140 mmol/L (135-145)
[2021-04-14 07:24] VITALS: BP 146/89; PULSE 56; RESP 18; TEMP 36.9; O2SAT 98
[2021-04-14] MEDS: LORazepam 1 MG TABLET PO (10:01)
[2021-04-14] MEDS: methylPREDNISolone Sod Succ 40 MG/ML VIAL IVPUSH (10:01)
[2021-04-14 11:01] VITALS: BP 153/99; PULSE 67; RESP 18; TEMP 36.3; O2SAT 95
--- NOTE | 2021-04-14 12:05 | HO.PM.IMPN ---
Subjective Subjective Date of Service: 04/14/21 Interval History: Seen and examined this morning Had fever 100.5, 100.8 overnight. Also had heart block with bradycardia, but was asymptomatic No chest pain, no further hemoptysis Currently on room air Feeling anxious Review of Systems Review of Systems: Yes all other systems are reviewed and are negative Constitutional Constitutional: Denies chills and Denies fever(s) Cardiovascular Cardiovascular: Denies chest pain Gastrointestinal Gastrointestinal: Denies abdominal pain Physical Exam Vital Signs: Vital Signs: Last Vital Signs Temp 97.4 F 04/14/21 11:01 Pulse 67 04/14/21 11:01 Resp 18 04/14/21 11:01 BP 153/99 H 04/14/21 11:01 Pulse Ox 95 04/14/21 11:01 Oxygen Flow Rate 15 04/11/21 11:16 Body Mass Index 22.7 Const: General: no acute distress, awake and Physically active Nutritional Appearance: well nourished Orientation/consciousness: patient oriented x3 HENMT: Head: Yes normocephalic and Yes atraumatic Eyes: Sclerae: sclerae normal Resp: Effort & Inspection: normal respiratory effort and no respiratory distress Auscultation: clear to auscultation bilaterally Cardio: Rate: regular rate Rhythm: regular rhythm GI: Palpation (GI): Soft to palpation and nontender Neuro: General: patient oriented x3 Cranial nerves: Yes CN's II-XII intact bilaterally and Yes Bilaterally intact EOM present Objective Data Current Medications Generic Name Dose Route Start Last Admin Trade Name Freq PRN Reason Stop Dose Admin Acetaminophen 650 mg 04/11/21 14:29 04/14/21 01:03 Acetaminophen 325 Mg Tablet PO 650 mg Q6H PRN Administration Pain, Mild (Pain Scale 1-3) Heparin Sodium (Porcine) 5,000 unit 04/11/21 14:30 04/14/21 05:29 Heparin Sodium,Porcine 5,000 Unit/Ml Vial SUBCUT 5,000 unit Q8H TONE Administration Sodium Chloride 1,000 mls @ 150 mls/hr 04/11/21 13:45 04/14/21 08:55 Ns IVCONT 150 mls/hr .Q6H40M TONE Administration Ampicillin Sodium/Sulbactam 100 mls @ 200 mls/hr 04/11/21 19:00 04/14/21 10:04 Sodium 3 gm/ Sodium Chloride IV Infused Q6H TONE Infusion Lorazepam 1 mg 04/14/21 09:11 04/14/21 10:01 Lorazepam 1 Mg Tablet PO 1 mg Q6H PRN Administration Anxiety Methylprednisolone Sodium Succinate 40 mg 04/13/21 21:00 04/14/21 10:01 Methylprednisolone Sod Succ 40 Mg/Ml Vial IVPUSH 40 mg BID TONE Administration Ondansetron HCl 4 mg 04/11/21 14:29 Ondansetron Hcl 4 Mg/2 Ml Vial IVPUSH Q8H PRN Nausea and Vomiting Sodium Chloride 3 ml 04/11/21 16:00 04/14/21 08:07 0.9 % Sodium Chloride Flush 3 Ml Syringe IVFLUSH Not Given QSHIFT TONE Trazodone HCl 25 mg 04/11/21 21:00 04/13/21 20:31 Trazodone Hcl 25 Mg Halftab PO 25 mg BEDTIME TONE Administration Labs CBC & Chem 7: 04/14/21 05:23 04/14/21 05:23 Labs: Laboratory Results - last 24 hr 04/14/21 04/14/21 04/14/21 01:18 01:18 01:18 MCV MCH MCHC RDW Plt Count MPV Absolute Nucleated RBC Nucleated RBC % (auto) Anion Gap 11 L Estim Creat Clear Calc 131.9 Estimated GFR > 60 Random Glucose 135 H Calcium 8.6 Magnesium Cancelled 2.3 Total Creatine Kinase Troponin I High Sens 15.1 D 04/14/21 04/14/21 05:23 05:23 MCV 82.5 MCH 26.1 L MCHC 31.6 RDW 17.2 H Plt Count 167 MPV 11.1 Absolute Nucleated RBC 0.020 H Nucleated RBC % (auto) 0.2 Anion Gap 10 L Estim Creat Clear Calc 135.7 Estimated GFR > 60 Random Glucose 130 H Calcium 8.1 L Magnesium Total Creatine Kinase 950 H D Troponin I High Sens Microbiology Microbiology Results: Microbiology 04/11/21 13:30 Blood Culture - Preliminary Blood - Venous No growth after 48 hours. 04/11/21 13:10 Blood Culture - Preliminary Blood - Venous No growth after 48 hours. Assessment and Plan (1) Acute respiratory failure with hypoxia: Status: Acute (2) Rhabdomyolysis: Status: Acute (3) Aspiration pneumonia: Status: Acute Assessment and Plan: ?This is a 35 yo M with a PMH of chronic opiate dependence who was found down in the field and was brought into the ED by paramedics. He was given IV and IM narcan in the field, but it is unclear how much. His work up in the ED reveals significant CT chest findings on the R lung, likely a results of aspiration. He will be admitted for further work up. Brief episode of Heart block/bradycardia overnight 12 lead EKG showing sinus rhythm with sinus arrhythmia pt asymptomatic -cardiology consult L-sided chest pain. no chest pain today EKG non-ischemic. trops flat echo showing LVEF of 40-45% with mild global hypokinesis. Mild to moderate pulmonary hypertension -cardiology consult Fever Has been on Unasyn since admission for possible underlying aspiration -will repeat blood cultures -continue current antibiotics for now Acute respiratory failure with hypoxia due to accidental opiate overdose resulting in aspiration pneumonitis Now on room air taper solu-medrol to daily continue empiric Unasyn GARRY due to rhabdomyolysis Resolved with IV fluid Creatinine improved from 1.52 on admission to 0.70 Rhabdomyolysis likely secondary to OD / being down in the field CPK down from 13,153 on admission to 950 with IV fluid Mild hyperK. Resolved Accidental Opiate overdose/polysubstance abuse previously on suboxone denies withdrawal -- not interested in MAT -atarax prn -addiction medicine consult- request narcan at time of d/c transaminitis LFTs trending down Full Code DVT pptx, subcut heparin Attending: Dr. Wadsworth Quality Stroke Does the patient have a stroke diagnosis?: No VTE Prior VTE?: No VTE Risk Level:: Medical - moderate - high VTE Device Contraindication: Treatment Not Tolerated VTE Drug Contraindication: N/A - Med Ordered
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
--- NOTE | 2021-04-14 16:03 | P.EN_ITS ---
Event Note Date of Service: 04/14/21 Event Note: Called by the RN to report that the patient wanted to sign out [facility] medical advice. patient seen bedside. He tells me that he feels fine and he is ready for discharge. I informed him that he had a low-grade temperature yesterday and that in a patient who uses IV drugs this is concerning so he needs to stay in the hospital until his treatment is completed. Furthermore the patient also had some Wenckebach on telemetry for which cardiology has seen him. Lastly, patient came in with rhabdo and respiratory failure which have improved. Nonetheless he is not medically ready for discharge which was relayed to him. Patient is currently awake and alert and oriented x3, he is able to verbalize to me the risks of leaving against medical advice which include, but are not limited worsening of his potential infection as well as . He tells me that he will be going to live with his sister. He is competent to make this choice. He chooses to leave against medical advice. I will send him with 5 days of antibiotics and prednisone.
--- NOTE | 2021-04-14 16:12 | P.DS_ITS ---
DS: Providers Provider Date of Service: 04/14/21 Date of admission: 04/11/21 14:29 Primary care physician: Unknown Physician Consults: 04/11/21 14:34 Addiction Medicine Routine Consulting Provider: Jamilah Jean Reason for consultation: opiate overdose, may need suboxone, previously seen in clinic 04/13/21 10:30 Consult to Cardiology Routine Consulting Provider: Gonzalo Magaña Reason for consultation: chest pain Has provider been notified: No 04/14/21 00:50 Consult to Cardiology Routine Consulting Provider: Gonzalo Magaña Reason for consultation: heart block, pauses Has provider been notified: No DS: Diagnosis Discharge Diagnosis (1) Chest pain: Status: Acute (2) Cardiomyopathy: Status: Acute DS: Medications Discharge Medications Home Medications: Home Medications Medication Instructions Recorded Confirmed trazodone 200 mg PO BEDTIME 04/11/21 04/11/21 Previous Rx's Medication Instructions Recorded naloxone 4 mg/actuation nasal 4 mg INTRANASAL Q2M PRN #2 ea 11/24/20 spray (Narcan) buprenorphine 8 mg-naloxone 2 mg 1 film BUCCAL BID 7 Days #28 ea 02/02/21 sublingual film (Suboxone) clonidine HCl 0.1 mg tablet 0.1 mg PO BID PRN #14 tab 02/02/21 buprenorphine 300 mg/1.5 mL 300 mg SUBCUT ONCE #1.5 ml 02/06/21 solution,exten.rel.subcutaneous syringe (Sublocade) DS: Summary Hospital Course Hospital Course: Final discharge diagnosis 1. Acute respiratory failure with hypoxia 2. Acute aspiration pneumonia/pneumonitis 3. Acute kidney injury secondary to rhabdomyolysis 4. IV opiate and cocaine abuse 5. Wenckebach on telemetry 6. Hyperkalemia 7. Transaminitis HPI: This is a 35 yo M with a PMH of opiate abuse who was brought in to the emergency room by paramedics. History is obtained from the ED charts and providers as the patient does not recall the events that led up to him being brought it. He does endorse using heroine, IV, daily. He reports being on suboxone previously, but it is unclear if he is currently taking it. Per ED provider, he was brought in by paramedics, found down on the ground. Upon arrival to the the ED, his saturations were in the upper 80s on NRB mask. He was given IV and IM narcan, but dose is not clear. In the ED, the patients work up showed diffuse R lung findings, likely secondary to aspiration. His blood work showed Rhabdo with mild GARRY. His WBC count was elevated to 22,but he remains afebrile. He was given a dose of IV zosyn, started on bicarb drip and admission was requested. The patient is seen in the ED around 230pm. He reports generalized aches and pain, no specific location. He reports feeling extremely thirsty. When asked about this opiate use, he does not give a full account, just keeps stating that he is no longer going to be using it. He denies any anginal symptoms. Reports generalized body aches. Hospital Course: Patient was started on high-dose IV steroids and empiric IV Unasyn for aspiration pneumonitis and possible pneumonia. He was given supplemental oxygen, initially requiring 100% non-rebreather mask. For his acute kidney injury and rhabdomyolysis, he was treated with aggressive fluid resuscitation. Over the course of several days his condition improved and his respiratory teresa lure resolved. His blood cultures were negative, however on the day prior to him leaving against medical advice E had a low-grade temperature requiring repeat infectious workup. He also had bradycardia and heart block on telemetry overnight which was deemed to be Wenckebach. Unfortunately on 04/14, the patient decided to sign out against medical advice despite multiple attempts to convince him to stay. I have sent 5 days of oral prednisone and Augmentin. Time Spent with Patient Time attestation: Total time spent providing and/or coordinating discharge services: Discharge coordination time: Greater than 30 minutes Quality: Stroke Does the patient have a stroke diagnosis?: No Physical Exam Vital Signs: Vital Signs: Last Vital Signs Temp 97.4 F 04/14/21 11:01 Pulse 67 04/14/21 11:01 Resp 18 04/14/21 11:01 BP 153/99 H 04/14/21 11:01 Pulse Ox 95 04/14/21 11:01 Oxygen Flow Rate 15 04/11/21 11:16 Body Mass Index 22.7 Const: Other: aaox3 DS: Data Data Completed and Pending Labs on day of discharge: Laboratory Results - last 24 hr 04/14/21 04/14/21 04/14/21 01:18 01:18 01:18 WBC RBC Hgb Hct MCV MCH MCHC RDW Plt Count MPV Absolute Nucleated RBC Nucleated RBC % (auto) Sodium 141 Potassium 4.4 Chloride 108 Carbon Dioxide 26 Anion Gap 11 L BUN 21 H Creatinine 0.72 Estim Creat Clear Calc 131.9 Estimated GFR > 60 Random Glucose 135 H Calcium 8.6 Magnesium Cancelled 2.3 Total Creatine Kinase Troponin I High Sens 15.1 D 04/14/21 04/14/21 05:23 05:23 WBC 11.9 H RBC 3.83 L Hgb 10.0 L Hct 31.6 L MCV 82.5 MCH 26.1 L MCHC 31.6 RDW 17.2 H Plt Count 167 MPV 11.1 Absolute Nucleated RBC 0.020 H Nucleated RBC % (auto) 0.2 Sodium 140 Potassium 4.2 Chloride 108 Carbon Dioxide 26 Anion Gap 10 L BUN 19 H Creatinine 0.70 Estim Creat Clear Calc 135.7 Estimated GFR > 60 Random Glucose 130 H Calcium 8.1 L Magnesium Total Creatine Kinase 950 H D Troponin I High Sens Preliminary micro results at discharge 04/11/21 13:30 Blood Culture - Preliminary Blood - Venous No growth after 48 hours. 04/11/21 13:10 Blood Culture - Preliminary Blood - Venous No growth after 48 hours. Discharge Plan Discharge Patient Disposition: Left Against Medical Advice Discharge Diagnosis: Leaving AMA Referrals: Physician,Unknown [Primary Care Provider] - 1 Week Discharge Medications: New amoxicillin-pot clavulanate [Augmentin] 875-125 mg tablet 1 tab PO Q12H Qty: 10 RF: 0 prednisone 50 mg tablet 50 mg PO DAILY Qty: 5 RF: 0 Continued trazodone tablet 200 mg PO BEDTIME RF: 0 clonidine HCl 0.1 mg tablet 0.1 mg PO BID PRN (Reason: anxiety) Qty: 14 RF: 1 buprenorphine-naloxone [Suboxone] 8-2 mg film 1 film buccal BID 7 Days Qty: 28 RF: 0 Sublocade 300 mg/1.5 mL solution, extended rel syringe 300 mg subcut ONCE Qty: 1.5 RF: 1 Narcan 4 mg/actuation spray,non-aerosol 4 mg intranasal Q2M PRN (Reason: opioid overdose) Qty: 2 RF: 0 Discharge Orders: Discharge Order (Routine); Ordered 04/14/21 Ordered By: Tristan Wadsworth Diet: advance to usual diet Activity on Discharge: As tolerated Care Plan Goals: AMA Health Concerns: IV heroin abuse and cocaine use Your leaving against medical advice Plan of Treatment: You are leaving against medical advice, if you change your mind please return to the emergency room Assessment: You are leaving against medical advice, if you change your mind please return to the emergency room
--- NOTE | 2021-04-14 17:40 | PC.NURSE ---
AMA and Behavior pt took off his monitor and went into shower, wet up his IV. He was notified that needed to be back on the monitor and he went on to yell about how he hasn't take a shower since he has been in here and he needed it. He further went on to say that he would like leave, he was educated on the risk of leaving AMA in his condition, however he said he would signs the paper. MD was notified and he came to see patient. Pt still decided to leave. IV and engine monitor was removed.
== END 2021-04-14 16:00 | disposition left against medical advice (07) | DRG 816 ==
LOC: HO.ED 13:03 → HO.EDOVER 14:37 → HO.S3 14:53 → HO.IMC 04-14 01:34
PROVIDERS: Internal Medicine; Physician Assistant Medical; Admitting Provider Family Medicine; Emergency Provider Emergency Medicine; Visit Provider Family Medicine
DX: T40.1X1A Poisoning by heroin, accidental (unintentional), initial encounter (principal); J96.01 Acute respiratory failure with hypoxia; J69.0 Pneumonitis due to inhalation of food and vomit; N17.9 Acute kidney failure, unspecified; F11.20 Opioid dependence, uncomplicated; E87.5 Hyperkalemia; I42.9 Cardiomyopathy, unspecified; I44.1 Atrioventricular block, second degree; M62.82 Rhabdomyolysis; F19.10 Other psychoactive substance abuse, uncomplicated; R74.01 Elevation of levels of liver transaminase levels; F17.210 Nicotine dependence, cigarettes, uncomplicated; Z20.822 Contact with and (suspected) exposure to COVID-19; Y92.9 Unspecified place or not applicable; Z71.6 Tobacco abuse counseling; Z79.899 Other long term (current) drug therapy
CPT/HCPCS: 36415; 70450; 71045; 71250; 72125; 74176; 80048; 80076; 80307; 82077; 82550; 83605; 83690; 83735; 84100; 84484; 85025; 85027; 87040; 87635; 93005; 93306; 94640; 96361; 96365; 99285; 99291; J0295; J2060; J2543; J2920; J2930

== ENCOUNTER → 2021-07-27 11:12 | Outpatient (BNVA) | payer MEDICAID, SELFPAY | PROVIDERS: Visit Provider Nurse Practitioner Psychiatric/Mental Health | DX: F11.20 Opioid dependence, uncomplicated (principal); F14.90 Cocaine use, unspecified, uncomplicated; F17.210 Nicotine dependence, cigarettes, uncomplicated | CPT/HCPCS: 80305; 99212 ==

== ENCOUNTER 2021-07-28 14:03 | Emergency (ER) | payer MEDICAID, SELFPAY ==
--- NOTE | ~2021-07-28 | XR_ITS ---
EXAMINATION: XR CHEST CLINICAL INFORMATION: Trauma COMPARISON: Previous chest x-ray March 2021 TECHNIQUE: 2 views of the chest were obtained. FINDINGS: No significant abnormality is noted involving the heart, lungs, mediastinum, bony thorax or soft tissues. XR/XR chest 2V IMPRESSION: Unremarkable examination.
[2021-07-28 14:48] VITALS: BP 120/86; PULSE 100; RESP 16; TEMP 36.9; O2SAT 97; BMI 23.4
== END 2021-07-28 17:14 | disposition left against medical advice (07) ==
PROVIDERS: Emergency Provider Emergency Medicine
DX: R07.81 Pleurodynia (principal)
CPT/HCPCS: 71046; 99282; 99283

== ENCOUNTER → 2021-08-10 09:25 | Outpatient (BNVA) | payer MEDICAID, SELFPAY | PROVIDERS: Visit Provider Nurse Practitioner Psychiatric/Mental Health | DX: F11.20 Opioid dependence, uncomplicated (principal); R11.0 Nausea; R52 Pain, unspecified; R45.1 Restlessness and agitation; F41.9 Anxiety disorder, unspecified | CPT/HCPCS: 80305; 99212 ==

== ENCOUNTER → 2021-08-17 09:52 | Outpatient (BNVA) | payer MEDICAID, SELFPAY | PROVIDERS: Visit Provider Nurse Practitioner Psychiatric/Mental Health | DX: Z51.81 Encounter for therapeutic drug level monitoring (principal); F11.20 Opioid dependence, uncomplicated | CPT/HCPCS: 80305; 99212 ==

== ENCOUNTER → 2021-08-24 14:28 | Outpatient (BNVA) | payer MEDICAID, SELFPAY | PROVIDERS: Visit Provider Nurse Practitioner Psychiatric/Mental Health | DX: Z51.81 Encounter for therapeutic drug level monitoring (principal); F11.20 Opioid dependence, uncomplicated | CPT/HCPCS: 80305; 99212 ==

== ENCOUNTER → 2021-08-31 09:08 | Outpatient (BNVA) | payer MEDICAID, SELFPAY | PROVIDERS: Visit Provider Nurse Practitioner Psychiatric/Mental Health | DX: Z51.81 Encounter for therapeutic drug level monitoring (principal); F11.20 Opioid dependence, uncomplicated; F12.90 Cannabis use, unspecified, uncomplicated; F17.210 Nicotine dependence, cigarettes, uncomplicated | CPT/HCPCS: 80305; 99212 ==

== ENCOUNTER → 2021-09-28 08:55 | Outpatient (BNVA) | payer MEDICAID, SELFPAY | PROVIDERS: Visit Provider Nurse Practitioner Psychiatric/Mental Health | DX: Z51.81 Encounter for therapeutic drug level monitoring (principal); F11.20 Opioid dependence, uncomplicated | CPT/HCPCS: 80305; 99212 ==

== ENCOUNTER → 2021-10-05 13:34 | Outpatient (BNVA) | payer MEDICAID, SELFPAY | PROVIDERS: Visit Provider Nurse Practitioner Psychiatric/Mental Health | DX: Z51.81 Encounter for therapeutic drug level monitoring (principal); F11.20 Opioid dependence, uncomplicated | CPT/HCPCS: 80305; 99211 ==

== ENCOUNTER → 2021-12-14 11:25 | Outpatient (BNVA) | payer MEDICAID, SELFPAY | PROVIDERS: Visit Provider Nurse Practitioner Psychiatric/Mental Health | DX: F11.20 Opioid dependence, uncomplicated (principal) | CPT/HCPCS: 99211 ==

== ENCOUNTER 2021-12-28 11:40 | Outpatient (REF) | payer MEDICAID, SELFPAY | END 2021-12-28 11:41 | disposition home or self-care (01) | LOC: HO.LAB 11:40 | PROVIDERS: Visit Provider Nurse Practitioner Psychiatric/Mental Health | DX: F11.20 Opioid dependence, uncomplicated (principal); F12.20 Cannabis dependence, uncomplicated; F15.20 Other stimulant dependence, uncomplicated; F22 Delusional disorders; F17.210 Nicotine dependence, cigarettes, uncomplicated; Z51.81 Encounter for therapeutic drug level monitoring | CPT/HCPCS: 80305; 80348; 80362; 99212 ==

== ENCOUNTER 2022-03-08 00:24 | Inpatient (IN) | payer MEDICAID, OTHER, SELFPAY ==
--- NOTE | 2022-03-08 | ECG_ITS ---
Test Reason : MED CLEARANCE Blood Pressure : / mmHG Vent. Rate : 056 BPM Atrial Rate : 056 BPM P-R Int : 158 ms QRS Dur : 096 ms QT Int : 450 ms P-R-T Axes : 101 081 040 degrees QTc Int : 434 ms Sinus bradycardia Otherwise normal ECG When compared with ECG of 14-APR-2021 01:00, No significant change was found Referred By: Rene Hutchison Electronically Signed By:Gonzalo Magaña
[2022-03-08 01:11] VITALS: BP 109/74; PULSE 85; RESP 18; TEMP 37.1; O2SAT 97; BMI 25.7
[2022-03-08 02:17] LABS: Basophils Percent Auto 0.4 % (0-2); Eosinophils Absolute Auto 0.1 X10*3/uL (0.0-0.4); Eosinophils Percent Auto 0.6 % (0-4); Hematocrit 40.1 % (42.0-52.0); Hemoglobin 12.6 g/dl (14.0-18.0); Imm Gran Abs Auto 0.02 X10*3/uL (0.00-0.03); Imm Gran Pct Auto 0.2 % (0.0-0.4); Lymphocytes Absolute Auto 2.9 X10*3/uL (1.2-4.9); Lymphocytes Percent Auto 27.9 % (20-40); MANUAL DIFF FLAG NO; Mean Corpuscular HGB Conc 31.4 g/dl (31.0-36.0); Mean Corpuscular Hemoglobin 25.7 pg (27.0-33.0); Mean Corpuscular Volume 81.7 fL (80.0-98.0); Mean Platelet Volume 10.7 fL (9.4-12.4); Monocytes Absolute Auto 0.8 X10*3/uL (0.1-1.2); Monocytes Percent Auto 7.8 % (2-11); Neutrophils Absolute Auto 6.6 x10*3/uL (2.0-8.3); Neutrophils Percent Auto 63.1 % (45-73); Platelet Count 279 X10*3/uL (160-400); Red Blood Count 4.91 X10*6/uL (4.60-5.80); Red Cell Distribution Width 14.6 % (11.0-16.0); White Blood Count 10.5 X10*3/uL (4.8-10.8)
[2022-03-08 02:33] LABS: Ethanol 79 mg/dL
[2022-03-08 02:35] LABS: Alanine Aminotransferase 38 U/L (0-40); Albumin Level 4.4 g/dL (3.5-5.0); Alkaline Phosphatase 63 U/L (39-117); Anion Gap 12 (12-20); Aspartate Amino Transferase 40 U/L (5-37); Bilirubin Direct 0.2 mg/dL (0.0-0.5); Bilirubin Total 0.3 mg/dL (0.0-1.0); Blood Urea Nitrogen 19 mg/dL (9-16); Calcium 9.4 mg/dL (8.4-10.2); Carbon Dioxide 31 mmol/L (22-29); Chloride 100 mmol/L (96-108); Estimated Glomerular Filt Rate > 60; Glucose Random 63 mg/dL (60-115); Potassium 4.5 mmol/L (3.3-5.1); Sodium 138 mmol/L (135-145); Total Protein 8.3 g/dL (6.5-8.0)
[2022-03-08 02:57] LABS: COVID-19 Test Negative (Negative)
--- NOTE | 2022-03-08 03:21 | ED_ITS ---
HPI - Psych General Chief Complaint: Psychiatric Symptoms Stated Complaint: SI Time Seen by Provider: 03/08/22 03:19 Source: patient Mode of arrival: ambulatory Limitations: no limitations History of Present Illness HPI Narrative: Patient comes to the emergency room complaining of depression and suicidal ideation. Patient states that he has a lot of problems in the street and at work. Patient states that people are trying to poison him. Patient states that he wants to kill himself before somebody kills him. Or, he would kill the others. Patient is not specific with these people are. Patient states that this time he is unwilling to talk, states that the nurses are in the hallway trying to listen to what he says so they can make fun of him Related Data Previous Rx's Medication Instructions Recorded naloxone 4 mg/actuation nasal 4 mg intranasal Q2M PRN opioid 07/27/21 spray (Narcan) overdose #2 ea clonidine HCl 0.1 mg tablet 0.1 mg PO BID PRN anxiety #14 tabs 10/06/21 buprenorphine 8 mg-naloxone 2 mg 1 film buccal BID 7 days #14 ea 12/28/21 sublingual film (Suboxone) Allergies Allergy/AdvReac Type Severity Reaction Status Date / Time No Known Allergies Allergy Verified 12/28/21 11:51 Review of Systems Review of Systems: Constitutional : No Weight loss, No Fever, No Chills, No Night Sweats, No Fatigue, No Malaise ENT/Mouth : No Hearing loss, No Ear Pain, No Nasal Congestion, No Sinus Pain, No Hoarseness, No sore throat, No Rhinorrhea, No Swallowing Difficulty Eyes: No Eye Pain, No Swelling, No Redness, No Foreign Body, No Discharge, No Vision Changes Cardiovascular : No Chest Pain, No SOB, No Dyspnea on Exertion, No Orthopnea, No Edema, No Palpitations Respiratory : No Cough, No Sputum, No Wheezing, No Smoke Exposure, No Dyspnea Gastrointestinal : No Nausea, No Vomiting, No Diarrhea, No Constipation, No abdominal Pain, No Hematochezia, No Melena Genitourinary : no irregular bleeding, No Dysuria, No Urinary Frequency, No Hematuria, No Urinary Incontinence, No Urgency, No Flank Pain, No Urinary Flow Changes, No Hesitancy Musculoskeletal : No joint pain, No Myalgias, No Joint Swelling Skin : No Skin Lesions, No rash Neuro : No Weakness, No Numbness, No Paresthesias, No Loss of Consciousness, No Dizziness, No Headache Psych : Anxiety, depression, paranoia, SI and HI Heme/Lymph: No Bruising, No Bleeding,No Lymphadenopathy Endocrine : No Polyuria, No Polydipsia, No Temperature Intolerance PMFSH Past Medical History Medical History Drug abuse, opioid type Opioid use disorder Social History Social History Household Members: Friend(s) Housing: Apartment Alcohol intake: never Patient Tobacco Use Status: Current everyday Tobacco user Tobacco use type: Cigarette Substance Use Type: Marijuana and Caffiene Advance Directives: Yes Advance Directives on File: Yes Advance Directives Date on File: 04/11/21 service: No Current occupational status: unemployed Physical Exam Vital Signs: Vital Signs: Last Vital Signs Temp 98.7 F 03/08/22 01:11 Pulse 85 03/08/22 01:11 Resp 18 03/08/22 01:11 BP 109/74 03/08/22 01:11 Pulse Ox 97 03/08/22 01:11 O2 Del Method 03/08/22 01:11 BMI result Body Mass Index 25.7 Const: Other: Appearance: Alert. Oriented X3. No acute distress. Eyes: Pupils equal, round and reactive to light. ENT: Pharynx normal. Neck: Normal inspection. Neck supple. No lymph nodes noted. No crepitus CVS: Normal heart rate and rhythm. Pulses normal. Normal S1 and S2 Respiratory: No respiratory distress. Breath sounds normal. No Wheezing. No rales Abdomen: Soft and nontender. No rigidity. No distention. Skin: Skin warm and dry. Normal skin color. Normal skin turgor. Extremities: No lower extremity edema. No Lacerations. No Rash Neuro: Oriented X 3. No motor deficit. No sensory deficit. Moving all extremities. No slurred speech. CN 2 through 12 grossly intact Psych: calm, cooperative, patient is paranoid, states that the nurses are trying to listen to what he says that they will make fun of him. Course Course Course Narrative: Behavioral health network consult pending. Physician observation started at 03:24. MDM - Psych Lab Data Result diagrams: 03/08/22 02:15 03/08/22 02:15 Labs: Lab Results 03/08/22 03/08/22 03/08/22 Range/Units 02:15 02:15 02:15 WBC 10.5 (4.8-10.8) X10*3/uL RBC 4.91 (4.60-5.80) X10*6/uL Hgb 12.6 L (14.0-18.0) g/dl Hct 40.1 L (42.0-52.0) % MCV 81.7 (80.0-98.0) fL MCH 25.7 L (27.0-33.0) pg MCHC 31.4 (31.0-36.0) g/dl RDW 14.6 (11.0-16.0) % Plt Count 279 (160-400) X10*3/uL MPV 10.7 (9.4-12.4) fL Immature Gran % (Auto) 0.2 (0.0-0.4) % Neut % (Auto) 63.1 (45-73) % Lymph % (Auto) 27.9 (20-40) % [place] % (Auto) 7.8 (2-11) % Eos % (Auto) 0.6 (0-4) % Baso % (Auto) 0.4 (0-2) % Lymph # (Auto) 2.9 (1.2-4.9) X10*3/uL [place] # (Auto) 0.8 (0.1-1.2) X10*3/uL Eos # (Auto) 0.1 (0.0-0.4) X10*3/uL Baso # (Auto) 0.0 (0.0-0.2) X10*3/uL Abs Immat Gran (auto) 0.02 (0.00-0.03) X10*3/uL Absolute Neuts (auto) 6.6 (2.0-8.3) x10*3/uL Absolute Nucleated RBC 0.000 (0.0-0.012) X10*3/uL Nucleated RBC % (auto) 0.0 (0.0-0.2) /100WBC Sodium 138 (135-145) mmol/L Potassium 4.5 (3.3-5.1) mmol/L Chloride 100 (96-108) mmol/L Carbon Dioxide 31 H (22-29) mmol/L Anion Gap 12 (12-20) BUN 19 H (9-16) mg/dL Creatinine 0.92 (0.5-1.4) mg/dL Estim Creat Clear Calc 92.0 Estimated GFR > 60 Random Glucose 63 D (60-115) mg/dL Calcium 9.4 D (8.4-10.2) mg/dL Total Bilirubin 0.3 (0.0-1.0) mg/dL Direct Bilirubin 0.2 (0.0-0.5) mg/dL AST 40 H D (5-37) U/L ALT 38 (0-40) U/L Alkaline Phosphatase 63 D (39-117) U/L Total Protein 8.3 H D (6.5-8.0) g/dL Albumin 4.4 D (3.5-5.0) g/dL Ethyl Alcohol 79 mg/dL COVID-19 ([facility]) (Negative) COVID-19 Clin Com 03/08/22 Range/Units 02:35 WBC (4.8-10.8) X10*3/uL RBC (4.60-5.80) X10*6/uL Hgb (14.0-18.0) g/dl Hct (42.0-52.0) % MCV (80.0-98.0) fL MCH (27.0-33.0) pg MCHC (31.0-36.0) g/dl RDW (11.0-16.0) % Plt Count (160-400) X10*3/uL MPV (9.4-12.4) fL Immature Gran % (Auto) (0.0-0.4) % Neut % (Auto) (45-73) % Lymph % (Auto) (20-40) % [place] % (Auto) (2-11) % Eos % (Auto) (0-4) % Baso % (Auto) (0-2) % Lymph # (Auto) (1.2-4.9) X10*3/uL [place] # (Auto) (0.1-1.2) X10*3/uL Eos # (Auto) (0.0-0.4) X10*3/uL Baso # (Auto) (0.0-0.2) X10*3/uL Abs Immat Gran (auto) (0.00-0.03) X10*3/uL Absolute Neuts (auto) (2.0-8.3) x10*3/uL Absolute Nucleated RBC (0.0-0.012) X10*3/uL Nucleated RBC % (auto) (0.0-0.2) /100WBC Sodium (135-145) mmol/L Potassium (3.3-5.1) mmol/L Chloride (96-108) mmol/L Carbon Dioxide (22-29) mmol/L Anion Gap (12-20) BUN (9-16) mg/dL Creatinine (0.5-1.4) mg/dL Estim Creat Clear Calc Estimated GFR Random Glucose (60-115) mg/dL Calcium (8.4-10.2) mg/dL Total Bilirubin (0.0-1.0) mg/dL Direct Bilirubin (0.0-0.5) mg/dL AST (5-37) U/L ALT (0-40) U/L Alkaline Phosphatase (39-117) U/L Total Protein (6.5-8.0) g/dL Albumin (3.5-5.0) g/dL Ethyl Alcohol mg/dL COVID-19 ([facility]) Negative (Negative) COVID-19 Clin Com See Note Discharge Plan Discharge Clinical Impression: Paranoid, Suicidal ideation Patient Disposition: Still a Patient Prescriptions: No Action clonidine HCl 0.1 mg tablet 0.1 mg PO BID PRN (Reason: anxiety) Qty: 14 0RF Narcan 4 mg/actuation spray,non-aerosol 4 mg intranasal Q2M PRN (Reason: opioid overdose) Qty: 2 0RF Rx Instructions: spray 1 dose into ONE nostril; alternate nostrils w each dose until help arrives buprenorphine-naloxone [Suboxone] 8-2 mg film 1 film buccal BID 7 Days Qty: 14 1RF
--- NOTE | 2022-03-08 04:31 | PC.NURSE ---
Smart sheet referral to [facility] competed.
[2022-03-08 05:42] LABS: Appearance Urine CLEAR; Color Urine DK YELLOW; Glucose Urine UA NEG (NEG); Leukocyte Esterase Urine NEG (NEG); Nitrite Urine NEG (NEG); Specific Gravity - Urine >= 1.030 (1.005-1.025); Urine Blood NEG (NEG); Urine Ketones NEG (NEG); Urine Protein NEG (NEG-TRACE)
[2022-03-08 06:00] LABS: Amphetamine Screen Urine Not Detected (Not Detect); Barbiturates, Urine Not Detected (Not Detect); Benzodiazepines Screen Urine Not Detected (Not Detect); Cannabinoid Screen Urine POSITIVE (Not Detect); Cocaine Screen Urine POSITIVE (Not Detect); Fentanyl, urine POSITIVE (Not Detect); Opiate Screen Urine POSITIVE (Not Detect); Phencyclidine Screen Urine Not Detected (Not Detect)
[2022-03-08 07:50] VITALS: BP 104/56; PULSE 65; RESP 14; TEMP 37.1; O2SAT 98
--- NOTE | 2022-03-08 08:05 | PC.NURSE ---
pt is currently is sleeping, respirations even and unlabored.
--- NOTE | 2022-03-08 08:42 | PC.NURSE ---
report given to sherri rivas
--- NOTE | 2022-03-08 09:53 | HE.PHANOTE ---
RE METHADONE VERIFICATION FORM ENTERED
[2022-03-08] MEDS: methADONE HCl 20 MG/2 ML ORAL.CONC 85 MG PO (15:12)
[2022-03-08 20:30] VITALS: BP 143/94; PULSE 85; RESP 16; TEMP 36.1; O2SAT 100
[2022-03-08] MEDS: Ondansetron ODT 4 MG TAB.RAPDIS TRANSLINGU (20:36)
[2022-03-08] MEDS: LORazepam 1 MG TABLET 2 MG PO (20:48)
--- NOTE | 2022-03-08 21:14 | PC.NURSE ---
scored 17 on ciwa, provider notified, Ativan 2 mg PO administered with pending effect, disposition per [facility] is section 12 inpatient bed search, will continue to monitor.
[2022-03-08] MEDS: Prochlorperazine Edisylate 10 MG/2 ML VIAL IM (21:55)
--- NOTE | 2022-03-08 22:02 | PC.NURSE ---
Patient continuously reporting feeling extremely nauseous, vomited x 3, restless/anxious, provider notified/ordered compazine 10 mg IM/administered as ordered/patient compliant/pending effect, will continue to monitor.
--- NOTE | 2022-03-09 05:41 | PC.NURSE ---
Patient slept through the night, no distress observed/reported, behavior unpredictable and demanding at time for medication, disposition per [facility] is section 12 inpatient bed search, VSS, patient is off his medication, Methadone dose verified, will continue to monitor.
[2022-03-09 06:04] VITALS: RESP 17
--- NOTE | 2022-03-09 07:18 | PC.NURSE ---
Patient scored 0 on CIWA scale. Sleeping comfortably.
[2022-03-09] MEDS: methADONE HCl 20 MG/2 ML ORAL.CONC 85 MG PO (09:10)
[2022-03-09 10:14] LABS: COVID-19 Test Negative (Negative); IDNOW Serial# 16C4AD1C
--- NOTE | 2022-03-09 11:33 | PC.NURSE ---
Report given to Jenise from [facility]
--- NOTE | 2022-03-09 11:44 | PC.NURSE ---
Patient calm cooperative and is currently sleeping. No signs of paranoia. CIWA score has remained 0.
[2022-03-09 13:24] VITALS: BP 113/76; PULSE 66; RESP 17; TEMP 36.5; O2SAT 99
--- NOTE | 2022-03-09 14:43 | PC.NURSE ---
Pt is sleeping comfortably. No apparent distress.
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
--- NOTE | 2022-03-09 16:59 | PC.NURSE ---
Pt smokes 1-2 packs per day but denies nicotine replacement at this time
[2022-03-09 21:30] VITALS: RESP 16
[2022-03-10 07:52] LABS: Alanine Aminotransferase 32 U/L (0-40); Albumin Level 4.2 g/dL (3.5-5.0); Alkaline Phosphatase 62 U/L (39-117); Anion Gap 11 (12-20); Aspartate Amino Transferase 31 U/L (5-37); Bilirubin Total 0.3 mg/dL (0.0-1.0); Blood Urea Nitrogen 17 mg/dL (9-16); Calcium 9.4 mg/dL (8.4-10.2); Carbon Dioxide 29 mmol/L (22-29); Chloride 99 mmol/L (96-108); Cholesterol 180 mg/dL; Creatinine Clr Calc Pharmacy 107.2; Estimated Glomerular Filt Rate > 60; Glucose Fasting 96 mg/dL (60-99); HDL Cholesterol 42 mg/dL; LDL Cholesterol Calculated 120 mg/dl; Potassium 5.1 mmol/L (3.3-5.1); Sodium 134 mmol/L (135-145); Total Protein 8.1 g/dL (6.5-8.0); Triglycerides 90 mg/dL
[2022-03-10 07:56] LABS: Free T4 (Free Thyroxine) 1.02 ng/dL (0.71-1.85); Thyroid Stimulating Hormone 0.61 uIU/mL (0.32-4.0)
[2022-03-10 08:22] LABS: Estimated Average Glucose 105 mg/dL; Hemoglobin A1c % 5.3 %
[2022-03-10 08:24] VITALS: BP 107/76; PULSE 71; RESP 16; TEMP 36.8; O2SAT 99
[2022-03-10] MEDS: methADONE HCl 20 MG/2 ML ORAL.CONC 85 MG PO (08:31)
[2022-03-10 10:26] LABS: Folate 14.3 ng/mL (> or = 4.0); Vitamin B12 1041 pg/mL (200-900)
--- NOTE | 2022-03-10 12:32 | HO.PSYADMNOT ---
HPI Date of Service: 03/10/22 Chief Complaint: SI Sources of Information: patient interviewed, chart reviewed and crisis/core team assessment reviewed HPI Subjective Notes: Conditional Voluntary Narrative: Mr. Bradshaw is a 36 year-old male with hx of opioid and cocaine use disorder who self presented to [facility] reporting suicidal ideation with multiple plans including jumping off bridge, OD on pills or jump into traffic. Pt presented as paranoid in ED reporting he was being followed and people were injecting bleach on him. His utox was positive for fentanyl, opioids, cocaine and cannabis. On the unit, pt presents as slightly agitated as he tells this fiction and nonfiction prose writer that staff at methadone clinic are tampering his medications and he can't trust them anymore. He also reports they have been injecting bleach on my skin. He reports he does not know who he can trust. He reports suicidal ideation related to his paranoid delusions, stating wouldn't you feel like killing yourself if you were going through what I am going through. Pt reports poor sleep. He reports feeling very tired. When asked about visual or auditory hallucinations, pt states no, I'm Yarsanism! I'm not crazy. However, pt appears internally preoccupied. Past Psychiatric History: Inpatient: [facility] 09/2019; 09/07/2014 [facility]; 11/2013 [facility]GED WITH [facility]; 09/2012 MERGED WITH [facility]. Multiple [facility] programs OP: none Past medication trials: gabapentin Medical Evaluation Reviewed: Yes [facility] Medical History Drug abuse, opioid type Opioid use disorder Family History: denies psych hx in family Social History: Currently homeless. Pt reports he was born in [place], raised in [place]. No children. Seven siblings. Not working Substance History: Cannabis; daily use. Cocaine: $90 daily, Heroin IV: reporting $200-$400 daily. Trauma History: unknown Diagnostics Vital Signs (24Hr): Vital Signs - 24 hr 03/09/22 13:24 03/09/22 21:30 03/10/22 08:24 Temperature 97.7 F 98.2 F Pulse Rate 66 71 Respiratory Rate 17 16 16 Blood Pressure 113/76 107/76 Pulse Oximetry 99 99 Oxygen Delivery Method Room Air Room Air BMI result Body Mass Index 25.7 Labs Results: 03/08/22 02:15 03/10/22 06:53 Labs: Laboratory Results - last 48 hr 03/09/22 03/10/22 03/10/22 09:35 06:53 06:53 Sodium 134 L Potassium 5.1 Chloride 99 Carbon Dioxide 29 Anion Gap 11 L BUN 17 H Creatinine 0.79 Estim Creat Clear Calc 107.2 Estimated GFR > 60 Fasting Glucose 96 Estimat Average Glucose 105 Hemoglobin A1c % 5.3 Calcium 9.4 Total Bilirubin 0.3 AST 31 ALT 32 Alkaline Phosphatase 62 Total Protein 8.1 H Albumin 4.2 Triglycerides 90 Cholesterol 180 LDL Cholesterol, Calc 120 HDL Cholesterol 42 Vitamin B12 Folate TSH 0.61 Free T4 1.02 COVID-19 ([facility]) Negative COVID-19 [employer] Com See Note 03/10/22 06:53 Sodium Potassium Chloride Carbon Dioxide Anion Gap BUN Creatinine Estim Creat Clear Calc Estimated GFR Fasting Glucose Estimat Average Glucose Hemoglobin A1c % Calcium Total Bilirubin AST ALT Alkaline Phosphatase Total Protein Albumin Triglycerides Cholesterol LDL Cholesterol, Calc HDL Cholesterol Vitamin B12 1041 H Folate 14.3 TSH Free T4 COVID-19 ([facility]) COVID-19 [employer] Meds/Allergies Meds Home Medications Medication Instructions Recorded Confirmed Type methadone 10 mg tablet 85 mg PO DAILY 03/08/22 03/08/22 History Allergies Allergies Allergy/AdvReac Type Severity Reaction Status Date / Time No Known Allergies Allergy Verified 12/28/21 11:51 Mental Status Exam Mental Status Exam Narrative: Appearance: casually groomed, fair hygiene in NAD Behavior: guarded psychomotor:some agitation as he talks about people he thinks are altering his methadone Speech:clear, normal rate/rhythm/volume, spontaneous Thought process:tangential Thought content:delusions related to people altering his methadone and other substances. Mood: depressed Affect: hypervigilant SI:passive HI: whoever is trying to hurt me VH/AH:appears internally preoccupied Delusions:paranoid delusions of staff at methadone clinic trying to poison him Insight/judgment:impaired x 2. Memory/cog: alert, oriented x 3, not situation. Assessment & Plan Assessment & Plan (1) Opioid use disorder, severe, dependence: Status: Acute Code(s): F11.20 - Opioid dependence, uncomplicated (2) Cocaine use disorder, moderate, dependence: Status: Acute Code(s): F14.20 - Cocaine dependence, uncomplicated (3) Psychosis: Status: Acute Code(s): F29 - Unspecified psychosis not due to a substance or known physiological condition Plan Mr. Bradshaw is a 36 year-old male with hx of cocaine, opioids, who self presented to [facility] reporting suicidal ideation in context of substance use, paranoid delusions. Utox positive for cocaine, opiods, fentanyl. Pt presents with paranoid delusions that staff at methadone clinic trying to poison him, suspicious of others on the streets. We discussed risks, benefits and alternative treatment options. Pt reports he has been on gabapentin in the past for mood with good effect. He also agrees to start antipsychotic. PLAN 1. Admit to [facility], CV, 15 minutes checks for safety 2. Start gabapentin 300mg po TID 3. Start Olanzapine 5mg po BID. 4. Obtain collateral information- unclear when paranoia started. clarify dx. 5. Aftercare plannning. Pt homeless. Patient educated on: diagnosis, medication risk/benefits and substance abuse Reason for continued inpatient stay Substantial Risk for: harm to self and harm to others
[2022-03-10] MEDS: Acetaminophen 325 MG TABLET 650 MG PO (17:38)
[2022-03-10] MEDS: Ondansetron ODT 4 MG TAB.RAPDIS TRANSLINGU (17:40)
[2022-03-10 20:50] VITALS: RESP 16
[2022-03-11] MEDS: methADONE HCl 20 MG/2 ML ORAL.CONC 85 MG PO (09:24)
[2022-03-11] MEDS: Cyclobenzaprine HCl 5 MG TABLET PO ×2 (09:24→17:00)
[2022-03-11 09:25] VITALS: BP 120/76; PULSE 81; RESP 17; TEMP 36.8; O2SAT 100
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
[2022-03-11] MEDS: Gabapentin 300 MG CAPSULE PO ×2 (16:56→20:31)
[2022-03-11 20:20] VITALS: BP 110/69; PULSE 82; RESP 16; TEMP 36.6; O2SAT 99
[2022-03-12 08:12] VITALS: BP 122/69; PULSE 65; RESP 16; TEMP 36.4; O2SAT 100
[2022-03-12] MEDS: Gabapentin 300 MG CAPSULE PO (08:29)
[2022-03-12] MEDS: methADONE HCl 20 MG/2 ML ORAL.CONC 85 MG PO (08:30)
[2022-03-12 12:11] VITALS: BMI 25.7
--- NOTE | 2022-03-12 12:23 | MHC.CLN ---
Addendum entered by Yudelka Sandy RD 03/12/22 12:25: WEIGHT LOSS X 2 MONTHS=-9.6%. Original Note: NUTRITION CONSULT FOR WEIGHT LOSS AND APPETITE CONCERNS. REGULAR DIET. ENSURE TID PROVIDES ADDITIONAL 1050 KCALS, 60 G PROTEIN. VISITED WITH PATIENT ON UNIT WITH EVALUATOR TRANSFER STUDENTS. REPORTS LIMITED INTAKE AND WEIGHT LOSS. LIKES ENSURE SUPPLEMENT. STAFF ADVISED PATIENT OF UNIT KITCHEN. GOT CEREAL AND MILK X 2 IMMEDIATELY AFTER CONVERSATION. APPEARS TO BE EATING WELL. RD TO FOLLOW WEEKLY.
[2022-03-12] MEDS: Cyclobenzaprine HCl 5 MG TABLET PO (13:35)
--- NOTE | 2022-03-12 14:56 | HO.PSYCHPN ---
Subjective Subjective Date of Service: 03/12/22 Reason For Visit: SI Interim History: seen with translator/interpreter. alert. very rapid speech, pressured. talking over MD and translator/interpreter. wants to get off of methadone, won't take no for an answer. MD informs him from 85 to zero would take months and be done outpatient. initially agree to decrease by 5 mg tomorrow, pt insists on plan to decrease by 25 mg and get extra 10 if needed. he also doesn't seem open to the idea that he can't stay here for very long and that the primary focus of his treatment cannot be methadone taper. he immediately and repeatedly links the idea of his being on methadone (and beholden to the witchcraft-practicing methadone clinic staff) with suicidality. very circular interview. also asking for gabapentin dose increase as he believes it helps with opioid withdrawal. resolutely refuses to consider zyprexa or other anti-psychotic, saying he doesn't have mental illness and does not need such medications. per staff, refused 1:1 contact last NOC. self-dialoguing, irritable. c/o too high a dose of methadone. gabapentin started at his request. refusing zyprexa. in bed at 8:30 and slept through the night. Mental Status Exam Mental Status Exam Narrative: Appearance: casually groomed, fair hygiene in NAD Behavior: guarded psychomotor:some agitation as he talks about people he thinks are altering his methadone Speech:clear, incr rate, incr amount, incr loudness, nml rhythm, spontaneous Thought process:tangential Thought content:delusions related to people altering his methadone and other substances. Mood: depressed Affect: anxious, irritable SI:passive HI: none expressed VH/AH: none expressed Delusions:paranoid delusions of staff at methadone clinic trying to poison him Insight/judgment:impaired x 2. Memory/cog: alert, oriented x 3, not situation. Diagnostics Vital Signs (24Hr): Vital Signs - 24 hr 03/11/22 20:20 03/12/22 08:12 Temperature 97.8 F 97.5 F Pulse Rate 82 65 Respiratory Rate 16 16 Blood Pressure 110/69 122/69 Pulse Oximetry 99 100 Oxygen Delivery Method Room Air Room Air BMI result Body Mass Index 25.7 Labs Results: 03/08/22 02:15 03/10/22 06:53 Medications Medications Current Medications Acetaminophen (Acetaminophen 325 Mg Tablet) 650 mg PO Q6H PRN PRN Reason: Headache/Pain Mild Scale (1-3) Last Admin: 03/10/22 17:38 Dose: 650 mg Al Hydroxide/Mg Hydroxide (Magnesium Hydrox/Alum Hydrox 30 Ml Oral.Susp) 30 ml PO Q6H PRN PRN Reason: Heartburn/Nausea Cyclobenzaprine HCl (Cyclobenzaprine Hcl 5 Mg Tablet) 5 mg PO TID PRN PRN Reason: Muscle Spasm Last Admin: 03/12/22 13:35 Dose: 5 mg Gabapentin (Gabapentin 400 Mg Capsule) 400 mg PO TID TONE Hydroxyzine HCl (Hydroxyzine Hcl 25 Mg Tablet) 25 mg PO Q6H PRN PRN Reason: Anxiety Lorazepam (Lorazepam 1 Mg Tablet) 1 mg PO Q2H PRN PRN Reason: CIWA 8-11 Lorazepam (Lorazepam 1 Mg Tablet) 2 mg PO Q2H PRN PRN Reason: CIWA 12-15 Lorazepam (Lorazepam 1 Mg Tablet) 3 mg PO Q2H PRN PRN Reason: CIWA > 15. and call MDArlin Magnesium Hydroxide (Milk Of Magnesia 30 Ml Oral.Susp) 30 ml PO DAILY PRN PRN Reason: Constipation Methadone HCl (Methadone Hcl 20 Mg/2 Ml Oral.Conc) 60 mg PO DAILY [facility] Nicotine Polacrilex (Nicotine Polacrilex 2 Mg Gum) 4 mg BUCCAL Q2H PRN PRN Reason: Nicotine Cravings Olanzapine (Olanzapine 5 Mg Tablet) 5 mg PO BID [facility] Last Admin: 03/12/22 08:29 Dose: Not Given Ondansetron HCl (Ondansetron Odt 4 Mg Tab.Rapdis) 4 mg TRANSLINGU TID PRN PRN Reason: Nausea Last Admin: 03/10/22 17:40 Dose: 4 mg Trazodone HCl (Trazodone Hcl 50 Mg Tablet) 50 mg PO BEDTIME PRN PRN Reason: Insomnia Allergies Allergies Allergy/AdvReac Type Severity Reaction Status Date / Time No Known Allergies Allergy Verified 12/28/21 11:51 Assessment & Plan Assessment & Plan (1) Opioid use disorder, severe, dependence: Status: Acute Code(s): F11.20 - Opioid dependence, uncomplicated (2) Cocaine use disorder, moderate, dependence: Status: Acute Code(s): F14.20 - Cocaine dependence, uncomplicated (3) Psychosis: Status: Acute Code(s): F29 - Unspecified psychosis not due to a substance or known physiological condition Plan Mr. Bradshaw is a 36 year-old male with hx of cocaine, opioids, who self presented to [facility] reporting suicidal ideation in context of substance use, paranoid delusions. Utox positive for cocaine, opiods, fentanyl. Pt presents with paranoid delusions that staff at methadone clinic trying to poison him, suspicious of others on the streets. We discussed risks, benefits and alternative treatment options. Pt reports he has been on gabapentin in the past for mood with good effect. He also agrees to start antipsychotic. PLAN 1. Admit to M3, CV, 15 minutes checks for safety 2. Start gabapentin 300mg po TID 3. Start Olanzapine 5mg po BID. 4. Obtain collateral information- unclear when paranoia started. clarify dx. 5. Aftercare plannning. Pt homeless. 03/11 continue current plan. gabapentin and olanzapine. encouraged pt not to taper off methadone as it appears is mostly due to paraonid delusions of pt thinking staff at methadone clinic poisoning him. 03/12: decrease methadone to 60 mg tomorrow at pt's insistence. assuming this will not be tolerated by patient more than several days and a return to 80-85 will be done. increase gabapentin to 400 mg TID at pt request to help with opioid withdrawal Sx. pt steadfastly refusing neuroleptics, denying mental illness. seems agreeable to discharge to retirement. I spent __35____ minutes with the patient and/or on the patient floor today, greater than?50% of which was spent counseling/coordinating care. Reason for contiued inpatient stay Substantial Risk for: harm to self, harm to others, inability to function and rapid decompensation
[2022-03-12] MEDS: Gabapentin 400 MG CAPSULE PO ×2 (15:45→20:44)
[2022-03-12 20:44] VITALS: BP 118/68; PULSE 92; RESP 17; TEMP 36.8; O2SAT 98
[2022-03-13 06:00] VITALS: BP 107/69; PULSE 83; RESP 18; TEMP 36.9; O2SAT 98
[2022-03-13] MEDS: Gabapentin 400 MG CAPSULE PO ×3 (08:14→21:44)
[2022-03-13] MEDS: methADONE HCl 20 MG/2 ML ORAL.CONC 60 MG PO (08:14)
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
--- NOTE | 2022-03-13 14:59 | P.CONGS_ITS ---
History of Present Illness Consult details Consult date: 03/13/22 Narrative: The patient is a 36-year-old gentlemen admitted for psychosis and substance abuse issues who is seen at the request of Dr. Townsend, the psychiatrist, because of an abscess in the right axilla. With the help of interpretive services, the patient notes that it has been present for about a week. The patient sustained an abrasion injury to his right shoulder at some point and believes that the abscess is related to it. He denies prior history of sebaceous cysts in his axilla or elsewhere. Review of Systems Review of Systems: Yes all other systems are reviewed and are negative Constitutional: Constitutional: Reports as per [facility] Past Medical History Medical History Drug abuse, opioid type Opioid use disorder Social History Social History Household Members: None Housing: Homeless Do you presently have visiting nurse or other home services: No Alcohol intake: never Patient Tobacco Use Status: Current everyday Tobacco user Tobacco use type: Cigarette Cigarette Packs Per Day: 1 Cigarettes Per Day: 20.0 Smoked in Last 30 Days: Yes Patient Interested in Nicotine Replacement: No (refused) Patient Given Instructions on How to Stop Smoking: No Use of substances other than those prescribed or required for medical reasons: Yes Substance Use Type: Crack/Cocaine, Marijuana and Opiates Substance Use Frequency: Daily Last Used Substance: Just Prior to Admission Currently Displaying Signs/Symptoms of Drug Intoxication Withdrawal: No Any prior treatment program specific to substance use: Yes ([facility]) Have you been hit, kicked, punched, or otherwise hurt by someone within the past year? If so, by whom?: No Do you feel safe in your current relationship?: No Current Relationship Is there a partner from a previous relationship who is making you feel unsafe now?: No Are you made to feel afraid or neglected: No Advance Directives: Yes Advance Directives on File: Yes Advance Directives Date on File: 04/11/21 Do you have thoughts of harming others: None Do you have a plan to hurt others: No Plan Recently lost weight without trying: No service: No Current occupational status: unemployed Sexual orientation: Don't Know Meds Allergies Allergy/AdvReac Type Severity Reaction Status Date / Time No Known Allergies Allergy Verified 12/28/21 11:51 Active Medications: Current Medications Acetaminophen (Acetaminophen 325 Mg Tablet) 650 mg PO Q6H PRN PRN Reason: Headache/Pain Mild Scale (1-3) Last Admin: 03/10/22 17:38 Dose: 650 mg Al Hydroxide/Mg Hydroxide (Magnesium Hydrox/Alum Hydrox 30 Ml Oral.Susp) 30 ml PO Q6H PRN PRN Reason: Heartburn/Nausea Cyclobenzaprine HCl (Cyclobenzaprine Hcl 5 Mg Tablet) 5 mg PO TID PRN PRN Reason: Muscle Spasm Last Admin: 03/12/22 13:35 Dose: 5 mg Gabapentin (Gabapentin 400 Mg Capsule) 400 mg PO TID [facility] Last Admin: 03/13/22 08:14 Dose: 400 mg Hydroxyzine HCl (Hydroxyzine Hcl 25 Mg Tablet) 25 mg PO Q6H PRN PRN Reason: Anxiety Magnesium Hydroxide (Milk Of Magnesia 30 Ml Oral.Susp) 30 ml PO DAILY PRN PRN Reason: Constipation Methadone HCl (Methadone Hcl 20 Mg/2 Ml Oral.Conc) 60 mg PO DAILY [facility] Last Admin: 03/13/22 08:14 Dose: 60 mg Nicotine Polacrilex (Nicotine Polacrilex 2 Mg Gum) 4 mg BUCCAL Q2H PRN PRN Reason: Nicotine Cravings Olanzapine (Olanzapine 5 Mg Tablet) 5 mg PO BID [facility] Last Admin: 03/13/22 08:17 Dose: Not Given Ondansetron HCl (Ondansetron Odt 4 Mg Tab.Rapdis) 4 mg TRANSLINGU TID PRN PRN Reason: Nausea Last Admin: 03/10/22 17:40 Dose: 4 mg Trazodone HCl (Trazodone Hcl 50 Mg Tablet) 50 mg PO BEDTIME PRN PRN Reason: Insomnia Home Medications Medication Instructions Recorded Confirmed Last Taken Type methadone 10 mg tablet 85 mg PO DAILY 03/08/22 03/08/22 03/07/22 07:35 History Physical Exam Vital Signs: Vital Signs: Last Vital Signs Temp 98.4 F 03/13/22 06:00 Pulse 83 03/13/22 06:00 Resp 18 03/13/22 06:00 BP 107/69 03/13/22 06:00 Pulse Ox 98 03/13/22 06:00 O2 Del Method 03/13/22 06:00 BMI result Body Mass Index 25.7 Under loupe magnification, there is a 2.2 x 2.0 anterior axillary sebaceous cyst which is red, fluctuant and infected. On the patient's upper back in the deltoid area, there is a well-healing abrasion without evidence of infection or complication. No supraclavicular infraclavicular axillary adenopathy is noted Results Labs Result diagrams: 03/08/22 02:15 03/10/22 06:53 Labs: Urine 03/08/22 Range/Units 05:36 Urine Color DK YELLOW Urine Appearance CLEAR Urine pH 6.0 (5.0-8.0) Ur Specific [place] >= 1.030 H (1.005-1.025) Urine Protein NEG (NEG-TRACE) MG/DL Urine Glucose (UA) NEG (NEG) MG/DL All other labs normal. Assessment and Plan (1) Axillary abscess: Status: Acute (2) Psychosis: Status: Acute (3) Cocaine use disorder, moderate, dependence: Status: Acute (4) Paranoid: Status: Acute (5) Suicidal ideation: Status: Acute Plan Through the freelance interpreter/translator, I explained that this was an abscess or possibly a superficial inflamed lymph node and that I recommended cleaning the area, local injection and then aspiration and drainage if it turned out to be an abscess. I reviewed the inherent risks of bleeding, infection, persistence or recurrence. I also explained that this is not likely secondary to the abrasion on his back. The patient noted that he is being injected with chemicals that cause this problem. I explained that it is likely an infected sebaceous cyst and that topical antiperspirants sometimes contribute. His P seemed understand and gave permission to proceed With the patient in supine position, his right axilla was cleansed with multiple layers of ice Propanol that was allowed to dry. Local was infiltrated with excellent effect and after purulence material was demonstrated through the needle hole, an 11 blade used to make a 1 cm incision with gross purulence being expressed along with some sebum. The remaining local of 9 cc was was used to copiously irrigate the pocket until it ran clear and hemostasis was obtained with direct pressure the area was washed and dried and dressing applied. Procedures Date of Service Date of Service: 03/13/22 Abscess I/D Consent for Procedure: Elective - informed consent obtained Site: other (Right anterior axilla abscess 2.2x2.0cm) Side (if applicable): right Anesthetic used: lidocaine 2% Technique: incised with #11 blade Amount of fluid (mL): 2 Irrigation: Yes Packing used?: none Additional comments: Tolerated well. Instructions for wound care, specifically washing the area in the shower twice a day and changing the dressing as needed were discussed the of the freelance interpreter/translator. Arterial Line Sterile Technique Used: Yes
[2022-03-13 21:53] VITALS: BP 112/66; PULSE 84; TEMP 36.8; O2SAT 100
[2022-03-13] MEDS: hydrOXYzine HCL 25 MG TABLET PO (21:57)
[2022-03-13] MEDS: traZODone HCL 50 MG TABLET PO (21:57)
[2022-03-14 06:00] VITALS: BP 116/68; PULSE 72; RESP 16; TEMP 36.3; O2SAT 100
[2022-03-14] MEDS: Gabapentin 400 MG CAPSULE PO (08:30)
[2022-03-14] MEDS: methADONE HCl 20 MG/2 ML ORAL.CONC 60 MG PO (08:30)
--- NOTE | 2022-03-14 10:05 | PC.NURSE ---
Patient refused zyprexa and was only willing to take methadone 20mg instead of 60mg prescribed. Alex Townsend MD informed.
--- NOTE | 2022-03-14 10:30 | P.DS_ITS ---
DS: Providers Provider Date of Service: 03/16/22 Date of admission: 03/09/22 14:35 Primary care physician: Unknown Physician Consults: 03/13/22 13:18 Consult to General Surgery Routine Consulting Provider: [facility] General Surgeons Reason for consultation: R axillary abscess. I&D vs other mgmt? Has provider been notified: No DS: Diagnosis Discharge Diagnosis (1) Axillary abscess: Status: Acute (2) Psychosis: Status: Acute (3) Cocaine use disorder, moderate, dependence: Status: Acute (4) Paranoid: Status: Acute (5) Suicidal ideation: Status: Acute DS: Medications Discharge Medications Home Medications: Home Medications Medication Instructions Recorded Confirmed methadone 10 mg tablet 85 mg PO DAILY 03/08/22 03/08/22 Previous Rx's Medication Instructions Recorded gabapentin 400 mg capsule 400 mg PO TID 30 days #90 caps 03/14/22 Mental Status Exam Mental Status Exam Narrative: Appearance: casually groomed, fair hygiene in NAD Behavior: PMA of positional changes frequently, tremulous hands, gesticulations. psychomotor: see above. good eye contact. Speech:clear, incr rate, incr amount, incr loudness, nml rhythm, spontaneous Thought process:tangential Thought content:delusions related to people injecting him with bleach, poisoning him Mood: irritable/angry Affect: anxious, irritable SI: endorses, dependent on discharge HI: none expressed VH/AH: none expressed Insight/judgment:impaired x 2. Memory/cog: alert, oriented x 3, not situation. Data Data Completed and Pending Completed studies during hospitalization [Text1]: 03/08/22 03/08/22 03/08/22 02:15 02:15 02:15 WBC 10.5 RBC 4.91 Hgb 12.6 L Hct 40.1 L MCV 81.7 MCH 25.7 L MCHC 31.4 RDW 14.6 Plt Count 279 MPV 10.7 Immature Gran % (Auto) 0.2 Neut % (Auto) 63.1 Lymph % (Auto) 27.9 [place] % (Auto) 7.8 Eos % (Auto) 0.6 Baso % (Auto) 0.4 Lymph # (Auto) 2.9 [place] # (Auto) 0.8 Eos # (Auto) 0.1 Baso # (Auto) 0.0 Abs Immat Gran (auto) 0.02 Absolute Neuts (auto) 6.6 Absolute Nucleated RBC 0.000 Nucleated RBC % (auto) 0.0 Sodium 138 Potassium 4.5 Chloride 100 Carbon Dioxide 31 H Anion Gap 12 BUN 19 H Creatinine 0.92 Estim Creat Clear Calc 92.0 Estimated GFR > 60 Random Glucose 63 D Fasting Glucose Estimat Average Glucose Hemoglobin A1c % Calcium 9.4 D Total Bilirubin 0.3 Direct Bilirubin 0.2 AST 40 H D ALT 38 Alkaline Phosphatase 63 D Total Protein 8.3 H D Albumin 4.4 D Triglycerides Cholesterol LDL Cholesterol, Calc HDL Cholesterol Vitamin B12 Folate TSH Free T4 Urine Color Urine Appearance Urine pH Ur Specific [place] Urine Protein Urine Glucose (UA) Urine Ketones Urine Blood Urine Nitrite Ur Leukocyte Esterase Urine Opiates Screen Urine Fentanyl Screen Ur Barbiturates Screen Ur Phencyclidine Scrn Ur Amphetamines Screen U Benzodiazepines Scrn Urine Cocaine Screen U Marijuana (THC) Screen Ethyl Alcohol 79 COVID-19 (ALEXX) COVID-19 [employer] 03/08/22 03/08/22 03/08/22 02:35 05:36 05:36 WBC RBC Hgb Hct MCV MCH MCHC RDW Plt Count MPV Immature Gran % (Auto) Neut % (Auto) Lymph % (Auto) [place] % (Auto) Eos % (Auto) Baso % (Auto) Lymph # (Auto) [place] # (Auto) Eos # (Auto) Baso # (Auto) Abs Immat Gran (auto) Absolute Neuts (auto) Absolute Nucleated RBC Nucleated RBC % (auto) Sodium Potassium Chloride Carbon Dioxide Anion Gap BUN Creatinine Estim Creat Clear Calc Estimated GFR Random Glucose Fasting Glucose Estimat Average Glucose Hemoglobin A1c % Calcium Total Bilirubin Direct Bilirubin AST ALT Alkaline Phosphatase Total Protein Albumin Triglycerides Cholesterol LDL Cholesterol, Calc HDL Cholesterol Vitamin B12 Folate TSH Free T4 Urine Color DK YELLOW Urine Appearance CLEAR Urine pH 6.0 Ur Specific [place] >= 1.030 H Urine Protein NEG Urine Glucose (UA) NEG Urine Ketones NEG Urine Blood NEG Urine Nitrite NEG Ur Leukocyte Esterase NEG Urine Opiates Screen POSITIVE H Urine Fentanyl Screen POSITIVE H Ur Barbiturates Screen Not Detected Ur Phencyclidine Scrn Not Detected Ur Amphetamines Screen Not Detected U Benzodiazepines Scrn Not Detected Urine Cocaine Screen POSITIVE H U Marijuana (THC) Screen POSITIVE H Ethyl Alcohol COVID-19 (ALEXX) Negative COVID-19 [employer] See Note 03/09/22 03/10/22 03/10/22 09:35 06:53 06:53 WBC RBC Hgb Hct MCV MCH MCHC RDW Plt Count MPV Immature Gran % (Auto) Neut % (Auto) Lymph % (Auto) [place] % (Auto) Eos % (Auto) Baso % (Auto) Lymph # (Auto) [place] # (Auto) Eos # (Auto) Baso # (Auto) Abs Immat Gran (auto) Absolute Neuts (auto) Absolute Nucleated RBC Nucleated RBC % (auto) Sodium 134 L Potassium 5.1 Chloride 99 Carbon Dioxide 29 Anion Gap 11 L BUN 17 H Creatinine 0.79 Estim Creat Clear Calc 107.2 Estimated GFR > 60 Random Glucose Fasting Glucose 96 Estimat Average Glucose 105 Hemoglobin A1c % 5.3 Calcium 9.4 Total Bilirubin 0.3 Direct Bilirubin AST 31 ALT 32 Alkaline Phosphatase 62 Total Protein 8.1 H Albumin 4.2 Triglycerides 90 Cholesterol 180 LDL Cholesterol, Calc 120 HDL Cholesterol 42 Vitamin B12 Folate TSH 0.61 Free T4 1.02 Urine Color Urine Appearance Urine pH Ur Specific [place] Urine Protein Urine Glucose (UA) Urine Ketones Urine Blood Urine Nitrite Ur Leukocyte Esterase Urine Opiates Screen Urine Fentanyl Screen Ur Barbiturates Screen Ur Phencyclidine Scrn Ur Amphetamines Screen U Benzodiazepines Scrn Urine Cocaine Screen U Marijuana (THC) Screen Ethyl Alcohol COVID-19 (ALEXX) Negative COVID-19 Clin Com See Note 03/10/22 06:53 WBC RBC Hgb Hct MCV MCH MCHC RDW Plt Count MPV Immature Gran % (Auto) Neut % (Auto) Lymph % (Auto) [place] % (Auto) Eos % (Auto) Baso % (Auto) Lymph # (Auto) [place] # (Auto) Eos # (Auto) Baso # (Auto) Abs Immat Gran (auto) Absolute Neuts (auto) Absolute Nucleated RBC Nucleated RBC % (auto) Sodium Potassium Chloride Carbon Dioxide Anion Gap BUN Creatinine Estim Creat Clear Calc Estimated GFR Random Glucose Fasting Glucose Estimat Average Glucose Hemoglobin A1c % Calcium Total Bilirubin Direct Bilirubin AST ALT Alkaline Phosphatase Total Protein Albumin Triglycerides Cholesterol LDL Cholesterol, Calc HDL Cholesterol Vitamin B12 1041 H Folate 14.3 TSH Free T4 Urine Color Urine Appearance Urine pH Ur Specific [place] Urine Protein Urine Glucose (UA) Urine Ketones Urine Blood Urine Nitrite Ur Leukocyte Esterase Urine Opiates Screen Urine Fentanyl Screen Ur Barbiturates Screen Ur Phencyclidine Scrn Ur Amphetamines Screen U Benzodiazepines Scrn Urine Cocaine Screen U Marijuana (THC) Screen Ethyl Alcohol COVID-19 (ALEXX) COVID-19 Clin Com DS: Summary Hospital Course Hospital Course: per 03/10 admission note: Mr. Bradshaw is a 36 year-old male with hx of opioid and cocaine use disorder who self presented to [facility] ED reporting suicidal ideation with multiple plans including jumping off bridge, OD on pills or jump into traffic. Pt presented as paranoid in ED reporting he was being followed and people were injecting bleach on him. His utox was positive for fentanyl, opioids, cocaine and cannabis. On the unit, pt presents as slightly agitated as he tells this telegraphic typewriter repairer that staff at methadone clinic are tampering his medications and he can't trust them anymore. He also reports they have been injecting bleach on my skin. He reports he does not know who he can trust. He reports suicidal ideation related to his paranoid delusions, stating wouldn't you feel like killing yourself if you were going through what I am going through. Pt reports poor sleep. He re ports feeling very tired. When asked about visual or auditory hallucinations, pt states no, I'm [employer]! I'm not crazy. However, pt appears internally preoccupied. Past Psychiatric History: Inpatient: [facility] 09/2019; 09/07/2014 PB; 11/2013 PB; 09/2012 PB.? Multiple [facility] programs OP: none Past medication trials: gabapentin Medical Evaluation Reviewed: Yes [facility] Medical History? Drug abuse, opioid type Opioid use disorder Family History: denies psych hx in family Social History: Currently homeless. Pt reports he was born in [place], raised in [place]. No children. Seven siblings. Not working Substance History: Cannabis; daily use.? Cocaine: $90 daily,? Heroin IV: reporting $200-$400 daily. Trauma History: unknown Precis: Mr. Bradshaw is a 36 year-old male with hx of cocaine, opioids, who self presented to [facility] ED reporting suicidal ideation in context of substance use, paranoid delusions. Utox positive for cocaine, opiods, fentanyl. Pt presents with paranoid delusions that staff at methadone clinic trying to poison him, suspicious of others on the streets. We discussed risks, benefits and alternative treatment options. Pt reports he has been on gabapentin in the past for mood with good effect. He also agrees to start antipsychotic. 03/10: 1. Admit to M3, CV, 15 minutes checks for safety 2. Start gabapentin 300mg po TID 3. Start Olanzapine 5mg po BID. 03/11: continue current plan. gabapentin and olanzapine. encouraged pt not to taper off methadone as it appears is mostly due to paraonid delusions of pt thinking staff at methadone clinic poisoning him. 03/12: decrease methadone to 60 mg tomorrow at pt's insistence.? assuming this will not be tolerated by patient more than several days and a return to 80-85 will be done.? increase gabapentin to 400 mg TID at pt request to help with opioid withdrawal Sx.? pt steadfastly refusing neuroleptics, denying mental illness.? seems agreeable to discharge to care home. 03/13: same presentation as yesterday.? delusions changing, unclear if pt is malingering.? he seems to want to stay here until the end of the month and has made reference to getting paid on 03/19.? asking surgery to see abscess, planning for discharge to care home tomorrow. abscess lanced and drained. 03/14: discharged to self care. Time Spent with Patient Time attestation: Total time spent providing and/or coordinating discharge services: Time spent: Greater than 30 minutes Discharge Plan Discharge Patient Disposition: Long Term Discharge Diagnosis: Psychotic Disorder NOS Referrals: Therapy [Other] - 1 Week (Please follow up with [facility] once you obtain a cell phone. ) [facility] [Other] - 1 Week (Please show up at the care home at 4pm to check on possible bed availability. ) [facility] [Physician] - 1 Week Discharge Medications: New gabapentin 400 mg Capsule 400 mg PO TID 30 Days Qty: 90 0RF Continued methadone 10 mg Tablet 85 mg PO DAILY Discharge Orders: Discharge Order (Routine); Ordered 03/14/22 Ordered By: Alex Townsend Diet: Advance to usual diet Activity on Discharge: As tolerated Stand Alone Forms: Patient Portal Discharge page, Community Support Care Plan Goals: remain safe and sober in the outpatient treatment setting. work toward stable housing. Health Concerns: chronic polysubstance use disorder Plan of Treatment: take medications as prescribed, attend appointments as scheduled. you have a psychotic disorder and would be helped by taking a neuroleptic medication, such as zyprexa or haldol, but you have declined to do so. please reconsider moving forward. in addition, it is not recommended to reduce your methadone dose by more than 5 mg per week. please work with your methadone maintenance program to taper methadone if stopping methadone is your wish. Assessment: not at imminent risk of harm to self or others Discharge Date/Time: 03/14/22 11:12
--- NOTE | 2022-03-14 11:11 | PC.NURSE ---
Patient alert, pleasant and cooperative with discharge process. He denies ideation, plan or intent to harm self or others. He denies current physical complaint
== END 2022-03-14 11:12 | disposition home or self-care (01) | DRG 760 ==
LOC: HO.ED 03-09 11:42 → HO.PADLT16 03-09 15:15
PROVIDERS: Emergency Medicine; Admitting Provider Psychiatry & Neurology Psychiatry; Emergency Provider Emergency Medicine Emergency Medical Services; Visit Provider Psychiatry & Neurology Psychiatry
DX: F22 Delusional disorders (principal); F29 Unspecified psychosis not due to a substance or known physiological condition; R45.851 Suicidal ideations; F11.20 Opioid dependence, uncomplicated; F14.20 Cocaine dependence, uncomplicated; F17.210 Nicotine dependence, cigarettes, uncomplicated; Z71.6 Tobacco abuse counseling; Z20.822 Contact with and (suspected) exposure to COVID-19; Z56.0 Unemployment, unspecified; Z59.02 Unsheltered homelessness; Z79.899 Other long term (current) drug therapy
CPT/HCPCS: 36415; 80053; 80061; 80307; 81003; 82077; 82248; 82607; 82746; 83036; 84439; 84443; 85025; 87635; 93005; 96372; 99285

== ENCOUNTER → 2022-04-12 14:31 | Outpatient (BNVA) | payer MEDICAID, SELFPAY | PROVIDERS: Visit Provider Nurse Practitioner Psychiatric/Mental Health | DX: F11.20 Opioid dependence, uncomplicated (principal); F14.20 Cocaine dependence, uncomplicated; Z59.02 Unsheltered homelessness; Z51.81 Encounter for therapeutic drug level monitoring | CPT/HCPCS: 80305; 99212 ==

== ENCOUNTER 2022-04-23 11:20 | Inpatient (IN) | payer OTHER, MEDICAID, SELFPAY ==
--- NOTE | ~2022-04-23 | XR_ITS ---
EXAMINATION: XR SHOULDER, RIGHT CLINICAL INFORMATION: Right shoulder pain with limited range of motion. COMPARISON: None TECHNIQUE: Three views of the right shoulder. FINDINGS: Small cortical defect along the superior articular margin of the distal right clavicle at the acromio clavicular joint. The joint space is unremarkable. The acromion is intact with normal joint alignment. The right glenohumeral joint is unremarkable. The visualized right ribs are intact with the soft tissues are unremarkable. XR/XR shoulder RT min 2V IMPRESSION: Small cortical defect along the superior margin of the distal right clavicle. This is nonspecific and of indeterminate age. This could be degenerative in nature or secondary to old injury. Correlate with physical exam and trauma history. No other significant abnormality.
[2022-04-23 11:26] VITALS: BP 111/73; PULSE 85; RESP 18; TEMP 36.7; O2SAT 96; BMI 21.1
--- NOTE | 2022-04-23 12:22 | ED.EXTPRO ---
HPI - Extremity Problem General Chief complaint: Extremity Problem <Cecilia ChildersSEVEN - Last Filed: 04/23/22 18:46> Stated complaint: R shoulder pain <Cecilia ChildersSEVEN - Last Filed: 04/23/22 18:46> Time Seen by Provider: 04/23/22 12:22 <Cecilia De Jesus SEVEN Childers - Last Filed: 04/23/22 18:46> Source: patient <Cecilia ChildersSEVEN - Last Filed: 04/23/22 18:46> Mode of arrival: ambulatory <Cecilia ChildersSEVEN - Last Filed: 04/23/22 18:46> Limitations: no limitations <Cecilia ChildersSEVEN Veronica Last Filed: 04/23/22 18:46> History of Present Illness HPI Narrative: Patient presents emergency department for evaluation of right shoulder pain. He states that pain has been present for 2 days. he awoke from his sleep and the pain was there Denies any precipitating injury. He states that the pain is diffuse throughout his shoulder. It is made worse with movement. He tried Tylenol which did not help his pain. He states that he injected heroin intravenously earlier this morning and this was the only thing that alleviated his pain. Denies any numbness or tingling to the extremity. Denies weakness in the hand. Denies fevers, chills, chest pain, shortness of breath, difficulty breathing <Cecilia SandovalSEVEN freire - Last Filed: 04/23/22 18:46> Related Data Home medications: Previous Rx's Medication Instructions Recorded gabapentin 400 mg capsule 400 mg PO TID 30 days #90 caps 03/14/22 buprenorphine 8 mg-naloxone 2 mg 1 film sublingual BID #14 ea 04/12/22 sublingual film (Suboxone) <Cecilia Lizamarylu Childers CNP - Last Filed: 04/23/22 18:46> Allergies/Adverse reactions: Allergies Allergy/AdvReac Type Severity Reaction Status Date / Time No Known Allergies Allergy Verified 04/12/22 14:49 <Cecilia LizaSEVEN Banerjee Last Filed: 04/23/22 18:46> Review of Systems Review of Systems: Constitutional: No weight loss, fever, chills, weakness or fatigue. Skin: No rash or itching. Cardiovascular: No chest pain, chest pressure or chest discomfort. No palpitations Respiratory: No shortness of breath, cough or sputum production. Gastrointestinal: No nausea, vomiting or diarrhea. No abdominal pain Genitourinary: No burning micturition. No urinary frequency or incontinence. Musculoskeletal: positive shoulder pain Psychiatric: No depression or anxiety. <Cecilia Childers CNP - Last Filed: 04/23/22 18:46> Yes all other systems are reviewed and are negative <Cecilia Childers CNP - Last Filed: 04/23/22 18:46> [facility] Past Medical History Attestation statement: The following information was validated with the patient. <Cecilia Childers CNP - Last Filed: 04/23/22 18:46> Source: old records reviewed <Cecilia Childers CNP - Last Filed: 04/23/22 18:46> Medical History: Medical History Drug abuse, opioid type Opioid use disorder <Cecilia Childers CNP - Last Filed: 04/23/22 18:46> Social History Social History: Social History Household Members: None Housing: Homeless Do you presently have visiting nurse or other home services: No Alcohol intake: never Patient Tobacco Use Status: Current everyday Tobacco user Tobacco use type: Cigarette Cigarette Packs Per Day: 1 Cigarettes Per Day: 20.0 Substance Use Type: Crack/Cocaine, Marijuana and Opiates Advance Directives: No Advance Directives Information Provided: Yes Advance Directives Date on File: 04/11/21 service: No Current occupational status: unemployed Sexual orientation: Don't Know <Cecilia Childers CNP - Last Filed: 04/23/22 18:46> Physical Exam Vital Signs: Vital Signs: Last Vital Signs Temp 98.0 F 04/24/22 07:52 Pulse 53 04/24/22 07:52 Resp 17 04/24/22 07:52 BP 126/89 04/24/22 07:52 Pulse Ox 99 04/24/22 07:52 O2 Del Method 04/24/22 07:52 BMI result Body Mass Index 21.1 <Ceciliafrances Childers CNP - Last Filed: 04/23/22 18:46> Vital Signs: Last Vital Signs Temp 98.0 F 04/24/22 07:52 Pulse 53 04/24/22 07:52 Resp 17 04/24/22 07:52 BP 126/89 04/24/22 07:52 Pulse Ox 99 04/24/22 07:52 O2 Del Method 04/24/22 07:52 BMI result Body Mass Index 21.1 <Castro Tavera MD - Last Filed: 04/24/22 11:53> Appearance: Alert.?Oriented to person, place and time. No acute distress.?Normal affect. Eyes: Pupils equal, round and reactive to light.? ENT: Pharynx normal.?? Neck: Normal inspection.? Neck supple.?? CVS: Heart sounds normal. Normal heart rate and rhythm.? Pulses normal.?? Respiratory: No respiratory distress.? Lung sounds clear to auscultation bilaterally?? Abdomen: Soft and non-tender. Normoactive bowel sounds. Skin: Skin warm and dry.? Normal skin color.? Extremities: No lower extremity edema. right shoulder with decreased AROM, however he is able to move the arm through all different ranges, including external rotation. There is no obvious rash, erythema swelling, or warmth. Palpable 2+ radial pulse? Neuro: Moves all extremities spontaneously. Sensation intact bilaterally. no motor deficits Ambulates with normal steady gait. <Cecilia Childers CNP - Last Filed: 04/23/22 18:46> Course Course Course Narrative: patient is a 36-year-old male with a past medical history of poly substance abuse, cardiomyopathy,, who presents emergency department for evaluation right shoulder pain. right arm is neurovascularly intact distally. X-ray of the right shoulder reveals no acute fracture or dislocation, there is a small cortical defect along the distal right clavicle, which may be degenerative in nature or secondary to old injury. No tenderness upon palpation over the clavicle or anterior shoulder. Patient reporting pain particularly to the posterior shoulder and along the deltoid muscle. denies injecting heroin into this arm, and denies specifically injecting into the deltoid muscle. Physical exam not consistent with septic arthritis upon examination , no erythema, warmth, rash. Discussed plan of care for NSAIDs, rest, Lidoderm patches, and discharge home. At this time patient then states that he is feeling suicidal, stating want to kill myself , is not providing a specific plan at this time. patient to be transferred to Behavioral Health pod, changed in to hospital attire, will obtain basic labs for medical clearance, and refer to [facility] for further evaluation and safe disposition. patient placed in physician observation, in no apparent distress at this time, 1245. <Cecilia Childers CNP - Last Filed: 04/23/22 18:46> Reevaluation(s) Reevaluation #1: 04/24/2022 10 AM Pt was signed out to me at [address] Pearce stable clinically bed search continue for SI,no new complaints <Castro Tavera MD - Last Filed: 04/24/22 11:53> Reevaluation #2: Pt matt be admitted to psych service this end the OBS status <Castro Tavera MD - Last Filed: 04/24/22 11:53> MDM - Extremity (Nontraumatic) Medical Records Attestation: I reviewed the patient's medical records. <Cecilia Childers CNP - Last Filed: 04/23/22 18:46> Lab Data Result diagrams: : 04/23/22 13:11 04/23/22 13:11 <Cecliia Childers CNP - Last Filed: 04/23/22 18:46> Labs: Lab Results 04/23/22 04/23/22 04/23/22 Range/Units 13:06 13:06 13:11 WBC (4.8-10.8) X10*3/uL RBC (4.60-5.80) X10*6/uL Hgb (14.0-18.0) g/dl Hct (42.0-52.0) % MCV (80.0-98.0) fL MCH (27.0-33.0) pg MCHC (31.0-36.0) g/dl RDW (11.0-16.0) % Plt Count (160-400) X10*3/uL MPV (9.4-12.4) fL Immature Gran % (Auto) (0.0-0.4) % Neut % (Auto) (45-73) % Lymph % (Auto) (20-40) % [place] % (Auto) (2-11) % Eos % (Auto) (0-4) % Baso % (Auto) (0-2) % Lymph # (Auto) (1.2-4.9) X10*3/uL [place] # (Auto) (0.1-1.2) X10*3/uL Eos # (Auto) (0.0-0.4) X10*3/uL Baso # (Auto) (0.0-0.2) X10*3/uL Abs Immat Gran (auto) (0.00-0.03) X10*3/uL Absolute Neuts (auto) (2.0-8.3) x10*3/uL Absolute Nucleated RBC (0.0-0.012) X10*3/uL Nucleated RBC % (auto) (0.0-0.2) /100WBC Sodium 140 (135-145) mmol/L Potassium 4.4 (3.3-5.1) mmol/L Chloride 101 (96-108) mmol/L Carbon Dioxide 29 (22-29) mmol/L Anion Gap 14 (12-20) BUN 11 (9-16) mg/dL Creatinine 0.80 (0.5-1.4) mg/dL Estim Creat Clear Calc 109.5 Estimated GFR > 60 Random Glucose 94 D (60-115) mg/dL Calcium 9.0 (8.4-10.2) mg/dL Total Bilirubin 0.3 (0.0-1.0) mg/dL AST 25 (5-37) U/L ALT 39 (0-40) U/L Alkaline Phosphatase 80 D (39-117) U/L Total Protein 7.3 (6.5-8.0) g/dL Albumin 3.7 (3.5-5.0) g/dL Urine Opiates Screen POSITIVE H (Not Detect) Urine Fentanyl Screen POSITIVE H (Not Detect) Ur Barbiturates Screen Not Detected (Not Detect) Ur Phencyclidine Scrn Not Detected (Not Detect) Ur Amphetamines Screen Not Detected (Not Detect) U Benzodiazepines Scrn Not Detected (Not Detect) Urine Cocaine Screen POSITIVE H (Not Detect) U Marijuana (THC) Screen POSITIVE H (Not Detect) Ethyl Alcohol < 10 mg/dL COVID-19 (ALEXX) Negative (Negative) COVID-19 Clin Com See Note 04/23/22 Range/Units 13:11 WBC 11.9 H (4.8-10.8) X10*3/uL RBC 4.88 (4.60-5.80) X10*6/uL Hgb 12.0 L (14.0-18.0) g/dl Hct 39.2 L (42.0-52.0) % MCV 80.3 (80.0-98.0) fL MCH 24.6 L (27.0-33.0) pg MCHC 30.6 L (31.0-36.0) g/dl RDW 16.1 H (11.0-16.0) % Plt Count 223 (160-400) X10*3/uL MPV 10.5 (9.4-12.4) fL Immature Gran % (Auto) 1.1 H (0.0-0.4) % Neut % (Auto) 78.6 H (45-73) % Lymph % (Auto) 14.9 L (20-40) % [place] % (Auto) 4.6 (2-11) % Eos % (Auto) 0.5 (0-4) % Baso % (Auto) 0.3 (0-2) % Lymph # (Auto) 1.8 (1.2-4.9) X10*3/uL [place] # (Auto) 0.5 (0.1-1.2) X10*3/uL Eos # (Auto) 0.1 (0.0-0.4) X10*3/uL Baso # (Auto) 0.0 (0.0-0.2) X10*3/uL Abs Immat Gran (auto) 0.13 H (0.00-0.03) X10*3/uL Absolute Neuts (auto) 9.3 H (2.0-8.3) x10*3/uL Absolute Nucleated RBC 0.000 (0.0-0.012) X10*3/uL Nucleated RBC % (auto) 0.0 (0.0-0.2) /100WBC Sodium (135-145) mmol/L Potassium (3.3-5.1) mmol/L Chloride (96-108) mmol/L Carbon Dioxide (22-29) mmol/L Anion Gap (12-20) BUN (9-16) mg/dL Creatinine (0.5-1.4) mg/dL Estim Creat Clear Calc Estimated GFR Random Glucose (60-115) mg/dL Calcium (8.4-10.2) mg/dL Total Bilirubin (0.0-1.0) mg/dL AST (5-37) U/L ALT (0-40) U/L Alkaline Phosphatase (39-117) U/L Total Protein (6.5-8.0) g/dL Albumin (3.5-5.0) g/dL Urine Opiates Screen (Not Detect) Urine Fentanyl Screen (Not Detect) Ur Barbiturates Screen (Not Detect) Ur Phencyclidine Scrn (Not Detect) Ur Amphetamines Screen (Not Detect) U Benzodiazepines Scrn (Not Detect) Urine Cocaine Screen (Not Detect) U Marijuana (THC) Screen (Not Detect) Ethyl Alcohol mg/dL COVID-19 (ALEXX) (Negative) COVID-19 Clin Com <Cecilia Childers, [employer] - Last Filed: 04/23/22 18:46> Lab Results 04/23/22 04/23/22 04/23/22 Range/Units 13:06 13:06 13:11 WBC (4.8-10.8) X10*3/uL RBC (4.60-5.80) X10*6/uL Hgb (14.0-18.0) g/dl Hct (42.0-52.0) % MCV (80.0-98.0) fL MCH (27.0-33.0) pg MCHC (31.0-36.0) g/dl RDW (11.0-16.0) % Plt Count (160-400) X10*3/uL MPV (9.4-12.4) fL Immature Gran % (Auto) (0.0-0.4) % Neut % (Auto) (45-73) % Lymph % (Auto) (20-40) % [place] % (Auto) (2-11) % Eos % (Auto) (0-4) % Baso % (Auto) (0-2) % Lymph # (Auto) (1.2-4.9) X10*3/uL [place] # (Auto) (0.1-1.2) X10*3/uL Eos # (Auto) (0.0-0.4) X10*3/uL Baso # (Auto) (0.0-0.2) X10*3/uL Abs Immat Gran (auto) (0.00-0.03) X10*3/uL Absolute Neuts (auto) (2.0-8.3) x10*3/uL Absolute Nucleated RBC (0.0-0.012) X10*3/uL Nucleated RBC % (auto) (0.0-0.2) /100WBC Sodium 140 (135-145) mmol/L Potassium 4.4 (3.3-5.1) mmol/L Chloride 101 (96-108) mmol/L Carbon Dioxide 29 (22-29) mmol/L Anion Gap 14 (12-20) BUN 11 (9-16) mg/dL Creatinine 0.80 (0.5-1.4) mg/dL Estim Creat Clear Calc 109.5 Estimated GFR > 60 Random Glucose 94 D (60-115) mg/dL Calcium 9.0 (8.4-10.2) mg/dL Total Bilirubin 0.3 (0.0-1.0) mg/dL AST 25 (5-37) U/L ALT 39 (0-40) U/L Alkaline Phosphatase 80 D (39-117) U/L Total Protein 7.3 (6.5-8.0) g/dL Albumin 3.7 (3.5-5.0) g/dL Urine Opiates Screen POSITIVE H (Not Detect) Urine Fentanyl Screen POSITIVE H (Not Detect) Ur Barbiturates Screen Not Detected (Not Detect) Ur Phencyclidine Scrn Not Detected (Not Detect) Ur Amphetamines Screen Not Detected (Not Detect) U Benzodiazepines Scrn Not Detected (Not Detect) Urine Cocaine Screen POSITIVE H (Not Detect) U Marijuana (THC) Screen POSITIVE H (Not Detect) Ethyl Alcohol < 10 mg/dL COVID-19 (ALEXX) Negative (Negative) COVID-19 Clin Com See Note 04/23/22 Range/Units 13:11 WBC 11.9 H (4.8-10.8) X10*3/uL RBC 4.88 (4.60-5.80) X10*6/uL Hgb 12.0 L (14.0-18.0) g/dl Hct 39.2 L (42.0-52.0) % MCV 80.3 (80.0-98.0) fL MCH 24.6 L (27.0-33.0) pg MCHC 30.6 L (31.0-36.0) g/dl RDW 16.1 H (11.0-16.0) % Plt Count 223 (160-400) X10*3/uL MPV 10.5 (9.4-12.4) fL Immature Gran % (Auto) 1.1 H (0.0-0.4) % Neut % (Auto) 78.6 H (45-73) % Lymph % (Auto) 14.9 L (20-40) % [place] % (Auto) 4.6 (2-11) % Eos % (Auto) 0.5 (0-4) % Baso % (Auto) 0.3 (0-2) % Lymph # (Auto) 1.8 (1.2-4.9) X10*3/uL [place] # (Auto) 0.5 (0.1-1.2) X10*3/uL Eos # (Auto) 0.1 (0.0-0.4) X10*3/uL Baso # (Auto) 0.0 (0.0-0.2) X10*3/uL Abs Immat Gran (auto) 0.13 H (0.00-0.03) X10*3/uL Absolute Neuts (auto) 9.3 H (2.0-8.3) x10*3/uL Absolute Nucleated RBC 0.000 (0.0-0.012) X10*3/uL Nucleated RBC % (auto) 0.0 (0.0-0.2) /100WBC Sodium (135-145) mmol/L Potassium (3.3-5.1) mmol/L Chloride (96-108) mmol/L Carbon Dioxide (22-29) mmol/L Anion Gap (12-20) BUN (9-16) mg/dL Creatinine (0.5-1.4) mg/dL Estim Creat Clear Calc Estimated GFR Random Glucose (60-115) mg/dL Calcium (8.4-10.2) mg/dL Total Bilirubin (0.0-1.0) mg/dL AST (5-37) U/L ALT (0-40) U/L Alkaline Phosphatase (39-117) U/L Total Protein (6.5-8.0) g/dL Albumin (3.5-5.0) g/dL Urine Opiates Screen (Not Detect) Urine Fentanyl Screen (Not Detect) Ur Barbiturates Screen (Not Detect) Ur Phencyclidine Scrn (Not Detect) Ur Amphetamines Screen (Not Detect) U Benzodiazepines Scrn (Not Detect) Urine Cocaine Screen (Not Detect) U Marijuana (THC) Screen (Not Detect) Ethyl Alcohol mg/dL COVID-19 (ALEXX) (Negative) COVID-19 Clin Com <Castro Tavera MD - Last Filed: 04/24/22 11:53> Imaging Data XR Shoulder: Radiologist's impression: XR/XR shoulder RT min 2V IMPRESSION: Small cortical defect along the superior margin of the distal right clavicle. This is nonspecific and of indeterminate age. This could be degenerative in nature or secondary to old injury. Correlate with physical exam and trauma history. No other significant abnormality. <Cecilia Childers CNP - Last Filed: 04/23/22 18:46> Discharge Plan Discharge Clinical Impression: Muscle strain of right shoulder, Suicidal ideations, Opioid use disorder, severe, dependence <Cecilia Childers CNP - Last Filed: 04/23/22 18:46> Patient Disposition: Still a Patient <Cecilia Childers CNP - Last Filed: 04/23/22 18:46> Prescriptions: No Action gabapentin 400 mg Capsule 400 mg PO TID 30 Days Qty: 90 0RF buprenorphine-naloxone [Suboxone] 8-2 mg film 1 film sublingual BID Qty: 14 0RF <Cecilia Childers CNP - Last Filed: 04/23/22 18:46>
--- NOTE | 2022-04-23 12:43 | PC.NURSE ---
per provider, pt now SI, charge was notified, pod was notified, will clear with provider to promptly move patient to the pod
--- NOTE | 2022-04-23 12:46 | PC.NURSE ---
1:1 sitter at bedside until security brings patient to pod
--- NOTE | 2022-04-23 12:48 | ECG_ITS ---
Test Reason : Medical Clearance Blood Pressure : / mmHG Vent. Rate : 062 BPM Atrial Rate : 062 BPM P-R Int : 166 ms QRS Dur : 096 ms QT Int : 388 ms P-R-T Axes : 000 081 049 degrees QTc Int : 393 ms Normal sinus rhythm Normal ECG When compared with ECG of 08-MAR-2022 15:58, No significant change was found Referred By: Cecilia Childers Electronically Signed By:KELL MAGANA
[2022-04-23 13:15] LABS: MANUAL DIFF FLAG NO
[2022-04-23 13:18] LABS: Basophils Percent Auto 0.3 % (0-2); Eosinophils Absolute Auto 0.1 X10*3/uL (0.0-0.4); Eosinophils Percent Auto 0.5 % (0-4); Hematocrit 39.2 % (42.0-52.0); Imm Gran Abs Auto 0.13 X10*3/uL (0.00-0.03); Imm Gran Pct Auto 1.1 % (0.0-0.4); Lymphocytes Absolute Auto 1.8 X10*3/uL (1.2-4.9); Lymphocytes Percent Auto 14.9 % (20-40); Mean Corpuscular HGB Conc 30.6 g/dl (31.0-36.0); Mean Corpuscular Hemoglobin 24.6 pg (27.0-33.0); Mean Corpuscular Volume 80.3 fL (80.0-98.0); Mean Platelet Volume 10.5 fL (9.4-12.4); Monocytes Absolute Auto 0.5 X10*3/uL (0.1-1.2); Monocytes Percent Auto 4.6 % (2-11); Neutrophils Absolute Auto 9.3 x10*3/uL (2.0-8.3); Neutrophils Percent Auto 78.6 % (45-73); Platelet Count 223 X10*3/uL (160-400); Red Blood Count 4.88 X10*6/uL (4.60-5.80); Red Cell Distribution Width 16.1 % (11.0-16.0); White Blood Count 11.9 X10*3/uL (4.8-10.8)
[2022-04-23 13:32] LABS: COVID-19 Test Negative (Negative); IDNOW Serial# 55D5AD1C
[2022-04-23 13:33] LABS: Amphetamine Screen Urine Not Detected (Not Detect); Barbiturates, Urine Not Detected (Not Detect); Benzodiazepines Screen Urine Not Detected (Not Detect); Cannabinoid Screen Urine POSITIVE (Not Detect); Cocaine Screen Urine POSITIVE (Not Detect); Fentanyl, urine POSITIVE (Not Detect); Opiate Screen Urine POSITIVE (Not Detect); Phencyclidine Screen Urine Not Detected (Not Detect)
[2022-04-23 13:33] LABS: Alanine Aminotransferase 39 U/L (0-40); Albumin Level 3.7 g/dL (3.5-5.0); Alkaline Phosphatase 80 U/L (39-117); Anion Gap 14 (12-20); Aspartate Amino Transferase 25 U/L (5-37); Bilirubin Total 0.3 mg/dL (0.0-1.0); Blood Urea Nitrogen 11 mg/dL (9-16); Carbon Dioxide 29 mmol/L (22-29); Chloride 101 mmol/L (96-108); Creatinine Clr Calc Pharmacy 109.5; Estimated Glomerular Filt Rate > 60; Ethanol < 10 mg/dL; Glucose Random 94 mg/dL (60-115); Potassium 4.4 mmol/L (3.3-5.1); Sodium 140 mmol/L (135-145); Total Protein 7.3 g/dL (6.5-8.0)
--- NOTE | 2022-04-23 13:43 | PC.NURSE ---
approached patient to ask about pharmacy, med use. patient states still goes to [facility] for a pharmacy but reports had no suboxone for two weeks. patient asked about methadone, he stated was on no clinic. t/w offered to have recovery rn come speak to client but i think this patient is no tlooking for [facility] MAT but the ability to have short term symptoms addressed should they present.
--- NOTE | 2022-04-23 15:01 | PC.NURSE ---
RN was notify by this Record Center Specialist that the UTILIZATION MANAGEMENT MANAGER annabel call the pod asking for the EKG RN told this junior technical writer when the PT get a room we can do the EKG
[2022-04-23] MEDS: Lidocaine 4 % Patch ADH..PATCH 1 PATCH TRANSDERMA (15:17)
[2022-04-23 20:20] VITALS: BP 114/73; PULSE 69; RESP 16; TEMP 36.9; O2SAT 97
--- NOTE | 2022-04-24 06:03 | PC.NURSE ---
Patient slept through the night, no distress observed/reported, med rec completed/pending provider's approval, disposition per [facility] is section 12 inpatient bed search, behavior appropriate and non concerning, will continue to monitor.
[2022-04-24 06:18] VITALS: BP 158/86; PULSE 62; RESP 16; TEMP 37; O2SAT 99
--- NOTE | 2022-04-24 07:43 | PC.NURSE ---
patient appears to remain asleep at present respirations are even and unlabored aptient appears in no distress.
[2022-04-24 07:52] VITALS: BP 126/89; PULSE 53; RESP 17; TEMP 36.7; O2SAT 99
[2022-04-24 13:12] LABS: COVID-19 Test Negative (Negative)
[2022-04-24] MEDS: hydrOXYzine HCL 25 MG TABLET PO ×2 (13:45→21:36)
[2022-04-24] MEDS: Ondansetron ODT 4 MG TAB.RAPDIS TRANSLINGU (13:45)
[2022-04-24] MEDS: Lidocaine 4 % Patch ADH..PATCH 1 PATCH TRANSDERMA (13:45)
[2022-04-24] MEDS: Metoclopramide HCl 10 MG/2 ML VIAL IM (15:23)
[2022-04-24] MEDS: LORazepam 1 MG TABLET PO (19:48)
[2022-04-24] MEDS: Buprenorphine/Naloxone 4/1 mg FILM 1 FILM SUBLINGUAL ×2 (19:48→21:36)
[2022-04-24] MEDS: Ibuprofen 600 MG TABLET PO (19:48)
[2022-04-24] MEDS: Acetaminophen 325 MG TABLET 650 MG PO (21:36)
[2022-04-24 22:45] VITALS: BP 138/82; PULSE 58; RESP 18; TEMP 37.3; O2SAT 97
[2022-04-25 06:00] VITALS: BP 136/83; PULSE 51; RESP 16; TEMP 36.9; O2SAT 99
[2022-04-25] MEDS: Lidocaine 4 % Patch ADH..PATCH 1 PATCH TRANSDERMA (09:11)
[2022-04-25] MEDS: Buprenorphine/Naloxone 4/1 mg FILM 1 FILM SUBLINGUAL ×3 (09:14→17:53)
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
[2022-04-25 16:05] VITALS: BP 137/87; PULSE 51; TEMP 36.6
[2022-04-25] MEDS: Ibuprofen 600 MG TABLET PO (17:48)
[2022-04-25 19:34] LABS: Basophils Percent Auto 0.3 % (0-2); Eosinophils Percent Auto 0.4 % (0-4); Hematocrit 41.5 % (42.0-52.0); Hemoglobin 13.8 g/dl (14.0-18.0); Imm Gran Abs Auto 0.18 X10*3/uL (0.00-0.03); Imm Gran Pct Auto 1.6 % (0.0-0.4); Lymphocytes Absolute Auto 2.3 X10*3/uL (1.2-4.9); Lymphocytes Percent Auto 20.8 % (20-40); Mean Corpuscular HGB Conc 33.3 g/dl (31.0-36.0); Mean Corpuscular Hemoglobin 25.2 pg (27.0-33.0); Mean Corpuscular Volume 75.9 fL (80.0-98.0); Mean Platelet Volume 10.4 fL (9.4-12.4); Monocytes Absolute Auto 1.8 X10*3/uL (0.1-1.2); Monocytes Percent Auto 15.8 % (2-11); Neutrophils Absolute Auto 6.9 x10*3/uL (2.0-8.3); Neutrophils Percent Auto 61.1 % (45-73); Platelet Count 326 X10*3/uL (160-400); Red Blood Count 5.47 X10*6/uL (4.60-5.80); Red Cell Distribution Width 15.4 % (11.0-16.0); SCAN SMEAR FLAG 1; White Blood Count 11.2 X10*3/uL (4.8-10.8)
[2022-04-25 19:35] LABS: MANUAL DIFF FLAG SCAN
[2022-04-25 20:02] LABS: SLIDE REVIEW VERIFIED
[2022-04-26] MEDS: Lidocaine 4 % Patch ADH..PATCH 1 PATCH TRANSDERMA (08:09)
[2022-04-26] MEDS: Buprenorphine/Naloxone 4/1 mg FILM 1 FILM SUBLINGUAL ×3 (08:10→20:18)
[2022-04-26 08:14] VITALS: BP 130/76; PULSE 44; RESP 16; TEMP 36.4; O2SAT 100
[2022-04-26] MEDS: Acetaminophen 325 MG TABLET 650 MG PO ×2 (08:44→16:45)
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
[2022-04-26 12:17] VITALS: BMI 21.0
[2022-04-26 16:45] VITALS: BP 120/81; PULSE 78; TEMP 36.3
[2022-04-26] MEDS: Nicotine Polacrilex 2 MG GUM 4 MG BUCCAL ×2 (16:46→21:38)
[2022-04-26] MEDS: Buprenorphine/Naloxone 8/2 mg FILM 1 FILM SUBLINGUAL (17:38)
[2022-04-26] MEDS: Ibuprofen 600 MG TABLET PO (20:16)
[2022-04-26] MEDS: traZODone HCL 50 MG TABLET PO ×2 (20:17→21:38)
[2022-04-27] MEDS: Acetaminophen 325 MG TABLET 650 MG PO ×3 (02:15→20:45)
[2022-04-27] MEDS: Nicotine Polacrilex 2 MG GUM 4 MG BUCCAL ×4 (02:17→20:46)
[2022-04-27] MEDS: hydrOXYzine HCL 25 MG TABLET PO ×3 (06:48→20:47)
[2022-04-27] MEDS: Ibuprofen 600 MG TABLET PO ×2 (06:48→15:56)
[2022-04-27] MEDS: Buprenorphine/Naloxone 12/3 mg FILM 1 FILM SUBLINGUAL (07:58)
[2022-04-27] MEDS: Lidocaine 4 % Patch ADH..PATCH 1 PATCH TRANSDERMA (07:58)
[2022-04-27 08:03] VITALS: BP 129/80; PULSE 64; RESP 16; O2SAT 99
--- NOTE | 2022-04-27 14:16 | HO.PSYCHPN ---
Subjective Subjective Date of Service: 04/27/22 Reason For Visit: si Interim History: Patient seen with biscuitware brusher Patient reports that his mood is good, that he is feeling much better. Denies any SI; denies any HI or AVH. Denies any delusional thinking and none expressed or solicited Patient says that he mostly only gets depressed when he is engaged in substance abuse and that as he gets sober the depression also clears. He does say he has intermittent anxiety and would like some help with that but only as a p.r.n. and agrees to adding clonidine. He will consider whether not he needs other supportive medications. He does want to get back on Suboxone as a maintenance medication and asks for to be 8 mg b.i.d. which he has been on the past and says works best for him. Patient is eager to discuss treatment programs Mental Status Exam Mental Status Exam Narrative: Pt is alert and oriented; behavior is cooperative; calm;; dressed in casual attire, unkempt, marginal hygiene; mood is described as good and affect congruent; eye contact appropriate; Speech is normal rate, volume and prosody and not pressured; no psychomotor agitation/retardation present; thought process goal directed; Thought content is on tx; otherwise pertinent to relevant topics; no delusional content, paranoid ideations expressed; no SI; no HI; denies AVH and no clear evidence of perceptual disturbance. Patients insight and judgment seem intact Diagnostics Vital Signs (24Hr): Vital Signs - 24 hr 04/26/22 16:45 04/27/22 08:03 Temperature 97.3 F Pulse Rate 78 64 Respiratory Rate 16 Blood Pressure 120/81 129/80 Pulse Oximetry 99 Oxygen Delivery Method Room Air BMI result Body Mass Index 21.0 Labs Results: 04/25/22 19:27 04/23/22 13:11 Labs: Laboratory Results - last 48 hr 04/25/22 19:27 WBC 11.2 H RBC 5.47 Hgb 13.8 L Hct 41.5 L MCV 75.9 L MCH 25.2 L MCHC 33.3 RDW 15.4 Plt Count 326 D MPV 10.4 Immature Gran % (Auto) 1.6 H Neut % (Auto) 61.1 Lymph % (Auto) 20.8 [place] % (Auto) 15.8 H Eos % (Auto) 0.4 Baso % (Auto) 0.3 Lymph # (Auto) 2.3 [place] # (Auto) 1.8 H Eos # (Auto) 0.0 Baso # (Auto) 0.0 Abs Immat Gran (auto) 0.18 H Absolute Neuts (auto) 6.9 Absolute Nucleated RBC 0.000 Nucleated RBC % (auto) 0.0 Smear Tech's Comments VERIFIED Imaging Radiology Impressions: ITS Impressions Shoulder X-Ray 04/23/22 11:36 IMPRESSION: Small cortical defect along the superior margin of the distal right clavicle. This is nonspecific and of indeterminate age. This could be degenerative in nature or secondary to old injury. Correlate with physical exam and trauma history. No other significant abnormality. Medications Medications Current Medications Acetaminophen (Acetaminophen 325 Mg Tablet) 650 mg PO Q6H PRN PRN Reason: Headache/Pain Mild Scale (1-3) Last Admin: 04/27/22 12:48 Dose: 650 mg Al Hydroxide/Mg Hydroxide (Magnesium Hydrox/Alum Hydrox 30 Ml Oral.Susp) 30 ml PO Q6H PRN PRN Reason: Heartburn/Nausea Buprenorphine/Naloxone (Buprenorphine/Naloxone 4/1 Mg Film) 1 film SUBLINGUAL ONCE ONE Stop: 04/27/22 17:01 Buprenorphine/Naloxone (Buprenorphine/Naloxone 8/2 Mg Film) 1 film SUBLINGUAL BID@0900,1700 TONE Clonidine HCl (Clonidine Hcl 0.1 Mg Tablet) 0.1 mg PO Q4H PRN; Protocol PRN Reason: anxiety Hydroxyzine HCl (Hydroxyzine Hcl 25 Mg Tablet) 25 mg PO Q6H PRN PRN Reason: Anxiety Last Admin: 04/27/22 12:47 Dose: 25 mg Ibuprofen (Ibuprofen 600 Mg Tablet) 600 mg PO Q8H PRN PRN Reason: Pain, Moderate (Pain Scale 4-6 Last Admin: 04/27/22 06:48 Dose: 600 mg Lidocaine (Lidocaine 4 % Patch Adh..Patch) 1 patch TRANSDERMA DAILY [facility]; Protocol Last Admin: 04/27/22 07:58 Dose: 1 patch Magnesium Hydroxide (Milk Of Magnesia 30 Ml Oral.Susp) 30 ml PO DAILY PRN PRN Reason: Constipation Nicotine Polacrilex (Nicotine Polacrilex 2 Mg Gum) 4 mg BUCCAL Q2H PRN PRN Reason: Nicotine Cravings Last Admin: 04/27/22 12:48 Dose: 4 mg Trazodone HCl (Trazodone Hcl 50 Mg Tablet) 50 mg PO BEDTIME PRN PRN Reason: Insomnia Last Admin: 04/26/22 21:38 Dose: 50 mg Allergies Allergies Allergy/AdvReac Type Severity Reaction Status Date / Time No Known Allergies Allergy Verified 04/12/22 14:49 Assessment & Plan Assessment & Plan (1) Substance induced mood disorder: Status: Acute Code(s): F19.94 - Other psychoactive substance use, unspecified with psychoactive substance-induced mood disorder (2) Post traumatic stress disorder (PTSD): Status: Acute Code(s): F43.10 - Post-traumatic stress disorder, unspecified (3) Opioid use disorder, severe, dependence: Status: Acute Code(s): F11.20 - Opioid dependence, uncomplicated (4) Cocaine use disorder, moderate, dependence: Status: Acute Code(s): F14.20 - Cocaine dependence, uncomplicated Plan Pt is a 36 year-old male with hx of cocaine and opioid abuse/dependence, psychotic symptoms, PTSD, recently discharged from 03/14/2022, who self presented to [facility], first for MSK pain, but then reporting suicidal ideation in context of substance use and homelessness. Patient is currently a poor historian says that he does not want to talk to proposal manager writer at this time. He is not impolite but says that he just needs to rest. He was willing to answer few questions and currently denies any SI or HI; denies AVH. He does not want to get on maintenance medication of Suboxone or methadone but just wants to use Suboxone for detox. 04/26 mood improved, SI remains resolved patient wants to get on Suboxone his maintenance medication 04/27 mood continues to remain improved, no SI; withdrawal complete with Suboxone on board. Wants clonidine for anxiety. Feels that his depression is mostly substance induced which can be severe however also clears up when he gets sober Plan: CV Q 15 minute checks Suboxone 8/2 mg b.i.d. Clonidine 0.1 mg q.4 H p.r.n. for anxiety Patient not sure if he needs other supportive medications but will consider. Last admission patient refused Zyprexa; will discuss when patient is more amenable I spent minutes with the patient and/or on the patient floor today, greater than?50% of which was spent counseling/coordinating care. Patient educated on: diagnosis, medication risk/benefits and substance abuse Informed Consent: understands Reason for contiued inpatient stay Substantial Risk for: stable for discharge
[2022-04-27] MEDS: cloNIDine HCL 0.1 MG TABLET PO ×2 (15:56→20:46)
[2022-04-27] MEDS: Buprenorphine/Naloxone 4/1 mg FILM 1 FILM SUBLINGUAL (15:57)
[2022-04-27 18:00] VITALS: BP 122/78; PULSE 95; RESP 16; TEMP 36.4; O2SAT 99
[2022-04-27] MEDS: traZODone HCL 50 MG TABLET PO (20:45)
[2022-04-28 06:00] VITALS: BP 111/66; PULSE 62; RESP 15; TEMP 36.1; O2SAT 98
[2022-04-28] MEDS: Lidocaine 4 % Patch ADH..PATCH 1 PATCH TRANSDERMA (08:36)
[2022-04-28] MEDS: Buprenorphine/Naloxone 8/2 mg FILM 1 FILM SUBLINGUAL ×2 (08:36→16:08)
[2022-04-28] MEDS: cloNIDine HCL 0.1 MG TABLET PO ×3 (08:37→20:23)
[2022-04-28] MEDS: Ibuprofen 600 MG TABLET PO ×2 (08:38→20:24)
[2022-04-28] MEDS: hydrOXYzine HCL 25 MG TABLET PO ×2 (08:38→19:11)
[2022-04-28] MEDS: Nicotine Polacrilex 2 MG GUM 4 MG BUCCAL ×3 (08:42→19:10)
[2022-04-28] MEDS: Acetaminophen 325 MG TABLET 650 MG PO (15:07)
--- NOTE | 2022-04-28 15:13 | P.PNPSI_ITS ---
Subjective Subjective Date of Service: 04/28/22 Reason For Visit: si Interim History: Met with patient. Discussed with Nursing. Overall patient reports that he is starting to feel better. Denies depression SI or hallucinations. Denies withdrawal symptoms. No paranoia and feels safe. Sleep is okay. Reports being open to outpatient care. No medication concerns. Medication Compliance: Yes Side effects from medications: No Attending Groups: Intermittent Review of Systems Acute medical concerns: No Review of Systems Review of Systems Unremarkable Mental Status Exam Mental Status Exam Narrative: Pleasant. Engaged. Hospital clothing. Fairly presented. Largely organized. Brighter mood. No SI. No HI. No agitation or psychosis. Insight and judgment okay Diagnostics Vital Signs (24Hr): Vital Signs - 24 hr 04/27/22 18:00 04/28/22 06:00 Temperature 97.6 F 97.0 F Pulse Rate 95 62 Respiratory Rate 16 15 Blood Pressure 122/78 111/66 Pulse Oximetry 99 98 Oxygen Delivery Method Room Air BMI result Body Mass Index 21.0 Labs Results: 04/25/22 19:27 04/23/22 13:11 Imaging Radiology Impressions: ITS Impressions Shoulder X-Ray 04/23/22 11:36 IMPRESSION: Small cortical defect along the superior margin of the distal right clavicle. This is nonspecific and of indeterminate age. This could be degenerative in nature or secondary to old injury. Correlate with physical exam and trauma history. No other significant abnormality. Medications Medications Current Medications Acetaminophen (Acetaminophen 325 Mg Tablet) 650 mg PO Q6H PRN PRN Reason: Headache/Pain Mild Scale (1-3) Last Admin: 04/28/22 15:07 Dose: 650 mg Al Hydroxide/Mg Hydroxide (Magnesium Hydrox/Alum Hydrox 30 Ml Oral.Susp) 30 ml PO Q6H PRN PRN Reason: Heartburn/Nausea Buprenorphine/Naloxone (Buprenorphine/Naloxone 8/2 Mg Film) 1 film SUBLINGUAL BID@0900,1700 TONE Last Admin: 04/28/22 08:36 Dose: 1 film Clonidine HCl (Clonidine Hcl 0.1 Mg Tablet) 0.1 mg PO Q4H PRN; Protocol PRN Reason: anxiety Last Admin: 04/28/22 08:37 Dose: 0.1 mg Hydroxyzine HCl (Hydroxyzine Hcl 25 Mg Tablet) 25 mg PO Q6H PRN PRN Reason: Anxiety Last Admin: 04/28/22 08:38 Dose: 25 mg Ibuprofen (Ibuprofen 600 Mg Tablet) 600 mg PO Q8H PRN PRN Reason: Pain, Moderate (Pain Scale 4-6 Last Admin: 04/28/22 08:38 Dose: 600 mg Lidocaine (Lidocaine 4 % Patch Adh..Patch) 1 patch TRANSDERMA DAILY TONE; Protocol Last Admin: 04/28/22 08:36 Dose: 1 patch Magnesium Hydroxide (Milk Of Magnesia 30 Ml Oral.Susp) 30 ml PO DAILY PRN PRN Reason: Constipation Nicotine Polacrilex (Nicotine Polacrilex 2 Mg Gum) 4 mg BUCCAL Q2H PRN PRN Reason: Nicotine Cravings Last Admin: 04/28/22 08:42 Dose: 4 mg Trazodone HCl (Trazodone Hcl 50 Mg Tablet) 50 mg PO BEDTIME PRN PRN Reason: Insomnia Last Admin: 04/27/22 20:45 Dose: 50 mg Allergies Allergies Allergy/AdvReac Type Severity Reaction Status Date / Time No Known Allergies Allergy Verified 04/12/22 14:49 Assessment & Plan Assessment & Plan (1) Substance induced mood disorder: Status: Acute Code(s): F19.94 - Other psychoactive substance use, unspecified with psychoactive substance-induced mood disorder (2) Post traumatic stress disorder (PTSD): Status: Acute Code(s): F43.10 - Post-traumatic stress disorder, unspecified (3) Opioid use disorder, severe, dependence: Status: Acute Code(s): F11.20 - Opioid dependence, uncomplicated (4) Cocaine use disorder, moderate, dependence: Status: Acute Code(s): F14.20 - Cocaine dependence, uncomplicated Plan Pt is a 36 year-old male with hx of cocaine and opioid abuse/dependence, psychotic symptoms, PTSD, recently discharged from 03/14/2022, who self [place] [facility], first for MSK pain, but then reporting suicidal ideation in context of substance use and homelessness. Patient is currently a poor historian says that he does not want to talk to newspaper writer at this time. He is not impolite but says that he just needs to rest. He was willing to answer few que stions and currently denies any SI or HI; denies AVH. He does not want to get on maintenance medication of Suboxone or methadone but just wants to use Suboxone for detox. 04/26 mood improved, SI remains resolved patient wants to get on Suboxone his maintenance medication 04/27 mood continues to remain improved, no SI; withdrawal complete with Suboxone on board. Wants clonidine for anxiety. Feels that his depression is mostly substance induced which can be severe however also clears up when he gets sober 04/28/2022: No changes to current treatment plan Plan: CV Q 15 minute checks Suboxone 8/2 mg b.i.d. Clonidine 0.1 mg q.4 H p.r.n. for anxiety Patient not sure if he needs other supportive medications but will consider. Last admission patient refused Zyprexa; will discuss when patient is more amenable I spent minutes with the patient and/or on the patient floor today, greater than?50% of which was spent counseling/coordinating care. Reason for contiued inpatient stay Substantial Risk for: harm to self
[2022-04-28 18:00] VITALS: BP 114/77; PULSE 86; RESP 18; TEMP 36.1; O2SAT 99
[2022-04-28] MEDS: traZODone HCL 50 MG TABLET PO ×2 (20:24→20:31)
[2022-04-29 06:00] VITALS: BP 114/65; PULSE 92; RESP 18
[2022-04-29] MEDS: Ibuprofen 600 MG TABLET PO ×2 (07:00→16:09)
[2022-04-29] MEDS: Acetaminophen 325 MG TABLET 650 MG PO ×2 (07:00→16:09)
[2022-04-29] MEDS: Nicotine Polacrilex 2 MG GUM 4 MG BUCCAL ×2 (07:02→19:24)
[2022-04-29] MEDS: Lidocaine 4 % Patch ADH..PATCH 1 PATCH TRANSDERMA (08:37)
[2022-04-29] MEDS: Buprenorphine/Naloxone 8/2 mg FILM 1 FILM SUBLINGUAL ×2 (08:39→16:09)
[2022-04-29] MEDS: hydrOXYzine HCL 25 MG TABLET PO (10:29)
[2022-04-29] MEDS: cloNIDine HCL 0.1 MG TABLET PO ×2 (10:29→19:24)
[2022-04-29] MEDS: Gabapentin 400 MG CAPSULE PO ×3 (11:15→19:24)
--- NOTE | 2022-04-29 16:26 | HO.PSYCHPN ---
Subjective Subjective Date of Service: 04/29/22 Reason For Visit: si Interim History: Met with patient. Discussed with Nursing. Overall patient reports today feel much more anxious and irritable I feel like killing somebody - clear no plans or intent and nobody specifically and expression of feeling more irritable overall. . Has done well on gabapentin in the past. Sleep OK. Denies SI or hallucinations. Denies withdrawal symptoms. No paranoia and feels safe. Medication Compliance: Yes Side effects from medications: No Attending Groups: Intermittent Review of Systems Acute medical concerns: No Review of Systems Review of Systems Unremarkable Mental Status Exam Mental Status Exam Narrative: Pleasant. Engaged. Hospital clothing. Fairly presented. Largely organized. Irritable and anxious. No SI. No HI. No psychosis. Insight and judgment okay Diagnostics Vital Signs (24Hr): Vital Signs - 24 hr 04/28/22 18:00 04/29/22 06:00 Temperature 97 F Pulse Rate 86 92 Respiratory Rate 18 18 Blood Pressure 114/77 114/65 Pulse Oximetry 99 Oxygen Delivery Method Room Air BMI result Body Mass Index 21.0 Labs Results: 04/25/22 19:27 04/23/22 13:11 Imaging Radiology Impressions: ITS Impressions Shoulder X-Ray 04/23/22 11:36 IMPRESSION: Small cortical defect along the superior margin of the distal right clavicle. This is nonspecific and of indeterminate age. This could be degenerative in nature or secondary to old injury. Correlate with physical exam and trauma history. No other significant abnormality. Medications Medications Current Medications Acetaminophen (Acetaminophen 325 Mg Tablet) 650 mg PO Q6H PRN PRN Reason: Headache/Pain Mild Scale (1-3) Last Admin: 04/29/22 16:09 Dose: 650 mg Al Hydroxide/Mg Hydroxide (Magnesium Hydrox/Alum Hydrox 30 Ml Oral.Susp) 30 ml PO Q6H PRN PRN Reason: Heartburn/Nausea Buprenorphine/Naloxone (Buprenorphine/Naloxone 8/2 Mg Film) 1 film SUBLINGUAL BID@0900,1700 [facility] Last Admin: 04/29/22 16:09 Dose: 1 film Clonidine HCl (Clonidine Hcl 0.1 Mg Tablet) 0.1 mg PO Q4H PRN; Protocol PRN Reason: anxiety Last Admin: 04/29/22 10:29 Dose: 0.1 mg Gabapentin (Gabapentin 400 Mg Capsule) 400 mg PO TID [facility] Last Admin: 04/29/22 14:08 Dose: 400 mg Hydroxyzine HCl (Hydroxyzine Hcl 25 Mg Tablet) 25 mg PO Q6H PRN PRN Reason: Anxiety Last Admin: 04/29/22 10:29 Dose: 25 mg Ibuprofen (Ibuprofen 600 Mg Tablet) 600 mg PO Q8H PRN PRN Reason: Pain, Moderate (Pain Scale 4-6 Last Admin: 04/29/22 16:09 Dose: 600 mg Lidocaine (Lidocaine 4 % Patch Adh..Patch) 1 patch TRANSDERMA DAILY TONE; Protocol Last Admin: 04/29/22 08:37 Dose: 1 patch Magnesium Hydroxide (Milk Of Magnesia 30 Ml Oral.Susp) 30 ml PO DAILY PRN PRN Reason: Constipation Nicotine Polacrilex (Nicotine Polacrilex 2 Mg Gum) 4 mg BUCCAL Q2H PRN PRN Reason: Nicotine Cravings Last Admin: 04/29/22 07:02 Dose: 4 mg Trazodone HCl (Trazodone Hcl 50 Mg Tablet) 50 mg PO BEDTIME PRN PRN Reason: Insomnia Last Admin: 04/28/22 20:31 Dose: 50 mg Allergies Allergies Allergy/AdvReac Type Severity Reaction Status Date / Time No Known Allergies Allergy Verified 04/12/22 14:49 Assessment & Plan Assessment & Plan (1) Substance induced mood disorder: Status: Acute Code(s): F19.94 - Other psychoactive substance use, unspecified with psychoactive substance-induced mood disorder (2) Post traumatic stress disorder (PTSD): Status: Acute Code(s): F43.10 - Post-traumatic stress disorder, unspecified (3) Opioid use disorder, severe, dependence: Status: Acute Code(s): F11.20 - Opioid dependence, uncomplicated (4) Cocaine use disorder, moderate, dependence: Status: Acute Code(s): F14.20 - Cocaine dependence, uncomplicated Plan Pt is a 36 year-old male with hx of cocaine and opioid abuse/dependence, psychotic symptoms, PTSD, recently discharged from 03/14/2022, who self presented to [facility], first for MSK pain, but then reporting suicidal ideation in context of substance use and homelessness. Patient is currently a poor historian says that he does not want to talk to copywriter at this time. He is not impolite but says that he just needs to rest. He was willing to answer few questions and currently denies any SI or HI; denies AVH. He does not want to get on maintenance medication of Suboxone or methadone but just wants to use Suboxone for detox. 04/26 mood improved, SI remains resolved patient wants to get on Suboxone his maintenance medication 04/27 mood continues to remain improved, no SI; withdrawal complete with Suboxone on board. Wants clonidine for anxiety. Feels that his depression is mostly substance induced which can be severe however also clears up when he gets sober 04/28/2022: No changes to current treatment plan 04/29/22: add gabapentin 400mg tid Plan: CV Q 15 minute checks Suboxone 8/2 mg b.i.d. Clonidine 0.1 mg q.4 H p.r.n. for anxiety Patient not sure if he needs other supportive medications but will consider. Last admission patient refused Zyprexa; will discuss when patient is more amenable I spent minutes with the patient and/or on the patient floor today, greater than?50% of which was spent counseling/coordinating care. Reason for contiued inpatient stay Substantial Risk for: inability to function
[2022-04-29 18:00] VITALS: BP 128/70; PULSE 80; RESP 18
[2022-04-29] MEDS: traZODone HCL 50 MG TABLET PO (20:25)
[2022-04-30] MEDS: Ibuprofen 600 MG TABLET PO ×2 (05:32→16:54)
[2022-04-30] MEDS: Acetaminophen 325 MG TABLET 650 MG PO ×2 (05:33→16:55)
[2022-04-30] MEDS: Gabapentin 400 MG CAPSULE PO ×3 (05:36→16:55)
[2022-04-30] MEDS: Nicotine Polacrilex 2 MG GUM 4 MG BUCCAL ×2 (05:37→13:50)
[2022-04-30 06:00] VITALS: BP 118/71; PULSE 97; RESP 18; TEMP 36.3; O2SAT 99
[2022-04-30] MEDS: Lidocaine 4 % Patch ADH..PATCH 1 PATCH TRANSDERMA (08:04)
[2022-04-30] MEDS: Buprenorphine/Naloxone 8/2 mg FILM 1 FILM SUBLINGUAL ×3 (08:05→19:46)
--- NOTE | 2022-04-30 10:36 | HO.PSYCHPN ---
Subjective Subjective Date of Service: 04/30/22 Reason For Visit: si Interim History: Patient irritable today, met with social Work and air/ocean export clerk. Today patient is walking up and down the halls talking to himself and is preoccupied with internally dialogue, laughing out loud to himself. Patient is polite with card writer hand but says that he has been upset because he knows that people are talking about him behind his back. He says that employees here are talking about him and he is hearing a voice saying if they kill your son... Patient's lunch tray has had mistakes on and he insists that staff is doing this on purpose as a joke to irritate him. Patient says this also has happened on the street, when someone is talking about orthodoxy things behind him or trying to listen when he makes phone calls. Patient says that during groups, staff involved in the group are making comments about following god the right way, other orthodoxy comments and other inappropriate comments. Patient has no insight into this and fully denies this being a possible hallucination or his mind playing tricks on him and refuses any medication. Veneer Matcher tried to do some reality testing and ask about AH but patient insisted that this is a real occurrence, not a hallucination, that it is real happening and that is the doctor I need to know about it. Patient denies any SI or HI. Patient agrees to remain on the unit for help finding a program but is looking forward to discharging soon. Mental Status Exam Mental Status Exam Narrative: Pt is alert and oriented; behavior is more hyperactive, irritable; dressed in casual attire, scruffy but adequate hygiene; mood is described as irritated and affect congruent; eye contact appropriate; Speech is normal rate, volume and prosody and not pressured; some psychomotor agitation present; thought process goal directed; Thought content is on being made fun of by staff, his food order being messed with; otherwise pertinent to relevant topics; denies any SI or HI; denies AVH but says hears staff saying things behind his back and is internally preoccupied; Patients insight and judgment are impaired. Diagnostics Vital Signs (24Hr): Vital Signs - 24 hr 04/29/22 18:00 04/30/22 06:00 Temperature 97.4 F Pulse Rate 80 97 Respiratory Rate 18 18 Blood Pressure 128/70 118/71 Pulse Oximetry 99 BMI result Body Mass Index 21.0 Labs Results: 04/25/22 19:27 04/23/22 13:11 Imaging Radiology Impressions: ITS Impressions Shoulder X-Ray 04/23/22 11:36 IMPRESSION: Small cortical defect along the superior margin of the distal right clavicle. This is nonspecific and of indeterminate age. This could be degenerative in nature or secondary to old injury. Correlate with physical exam and trauma history. No other significant abnormality. Medications Medications Current Medications Acetaminophen (Acetaminophen 325 Mg Tablet) 650 mg PO Q6H PRN PRN Reason: Headache/Pain Mild Scale (1-3) Last Admin: 04/30/22 05:33 Dose: 650 mg Al Hydroxide/Mg Hydroxide (Magnesium Hydrox/Alum Hydrox 30 Ml Oral.Susp) 30 ml PO Q6H PRN PRN Reason: Heartburn/Nausea Buprenorphine/Naloxone (Buprenorphine/Naloxone 8/2 Mg Film) 1 film SUBLINGUAL BID@0900,1700 [facility] Last Admin: 04/30/22 08:05 Dose: 1 film Clonidine HCl (Clonidine Hcl 0.1 Mg Tablet) 0.1 mg PO Q4H PRN; Protocol PRN Reason: anxiety Last Admin: 04/29/22 19:24 Dose: 0.1 mg Gabapentin (Gabapentin 400 Mg Capsule) 400 mg PO TID [facility] Last Admin: 04/30/22 05:36 Dose: 400 mg Hydroxyzine HCl (Hydroxyzine Hcl 25 Mg Tablet) 25 mg PO Q6H PRN PRN Reason: Anxiety Last Admin: 04/29/22 10:29 Dose: 25 mg Ibuprofen (Ibuprofen 600 Mg Tablet) 600 mg PO Q8H PRN PRN Reason: Pain, Moderate (Pain Scale 4-6 Last Admin: 04/30/22 05:32 Dose: 600 mg Lidocaine (Lidocaine 4 % Patch Adh..Patch) 1 patch TRANSDERMA DAILY [facility]; Protocol Last Admin: 04/30/22 08:04 Dose: 1 patch Magnesium Hydroxide (Milk Of Magnesia 30 Ml Oral.Susp) 30 ml PO DAILY PRN PRN Reason: Constipation Nicotine Polacrilex (Nicotine Polacrilex 2 Mg Gum) 4 mg BUCCAL Q2H PRN PRN Reason: Nicotine Cravings Last Admin: 04/30/22 05:37 Dose: 4 mg Trazodone HCl (Trazodone Hcl 50 Mg Tablet) 50 mg PO BEDTIME PRN PRN Reason: Insomnia Last Admin: 04/29/22 20:25 Dose: 50 mg Allergies Allergies Allergy/AdvReac Type Severity Reaction Status Date / Time No Known Allergies Allergy Verified 04/12/22 14:49 Assessment & Plan Assessment & Plan (1) Substance induced mood disorder: Status: Ruled-out Code(s): F19.94 - Other psychoactive substance use, unspecified with psychoactive substance-induced mood disorder (2) Post traumatic stress disorder (PTSD): Status: Acute Code(s): F43.10 - Post-traumatic stress disorder, unspecified (3) Opioid use disorder, severe, dependence: Status: Acute Code(s): F11.20 - Opioid dependence, uncomplicated (4) Cocaine use disorder, moderate, dependence: Status: Acute Code(s): F14.20 - Cocaine dependence, uncomplicated Plan Pt is a 36 year-old male with hx of cocaine and opioid abuse/dependence, psychotic symptoms, PTSD, recently discharged from 03/14/2022, who self presented to [facility] [place] [facility] ED, first for MSK pain, but then reporting suicidal ideation in context of substance use and homelessness. Patient is currently a poor historian says that he does not want to talk to card writer hand at this time. He is not impolite but says that he just needs to rest. He was willing to answer few questions and currently denies any SI or HI; denies AVH. He does not want to get on maintenance medication of Suboxone or methadone but just wants to use Suboxone for detox. 04/26 mood improved, SI remains resolved patient wants to get on Suboxone his maintenance medication 04/27 mood continues to remain improved, no SI; withdrawal complete with Suboxone on board. Wants clonidine for anxiety. Feels that his depression is mostly substance induced which can be severe however also clears up when he gets sober 04/28/2022: No changes to current treatment plan 04/29/22: add gabapentin 400mg tid 04/30 patient more intense today; has delusional ideas that staff his making fun of him, messing with his food; has auditory hallucinations. No insight at all and refuses any kind of psychiatric medication. Similar presentation to patient's admission on M 3. Patient amenable to staying on the unit for help with a program but would like discharge soon. No SI and no HI at all and he is not intrusive to other patients. It seems that patient is showing evidence of psychotic illness as these delusional thoughts are present despite improved mood and absence of depression; it is possible that this is a mild manic episode but for now will diagnosis schizoaffective disorder depressed type. While patient remains vulnerable to relapse and decompensation, he is not an imminent risk for harm to self or others and does not rise to the level of involuntary commitment. He does not want any further treatment or medication management. Patient is wanting discharge soon and his request will be honored. Plan: CV Q 15 minute checks Suboxone 8/2 mg b.i.d. Clonidine 0.1 mg q.4 H p.r.n. for anxiety Patient not sure if he needs other supportive medications but will consider. Last admission patient refused Zyprexa; refuses all psychotropics I spent minutes with the patient and/or on the patient floor today, greater than?50% of which was spent counseling/coordinating care. Patient educated on: diagnosis, medication risk/benefits and substance abuse Informed Consent: understands, does not understand and further education needed Reason for contiued inpatient stay Substantial Risk for: stable for discharge
[2022-04-30] MEDS: hydrOXYzine HCL 25 MG TABLET PO (13:49)
[2022-04-30] MEDS: cloNIDine HCL 0.1 MG TABLET PO (13:49)
[2022-04-30 13:54] VITALS: BP 127/77; PULSE 81
[2022-04-30 18:00] VITALS: BP 120/68; PULSE 84; TEMP 36.5
[2022-04-30] MEDS: traZODone HCL 50 MG TABLET 150 MG PO (19:46)
[2022-05-01] MEDS: Acetaminophen 325 MG TABLET 650 MG PO (03:24)
[2022-05-01] MEDS: Ibuprofen 600 MG TABLET PO (03:27)
[2022-05-01] MEDS: Nicotine Polacrilex 2 MG GUM 4 MG BUCCAL (03:27)
[2022-05-01 06:00] VITALS: BP 121/82; PULSE 87; RESP 18; TEMP 36.3; O2SAT 98
[2022-05-01] MEDS: Lidocaine 4 % Patch ADH..PATCH 1 PATCH TRANSDERMA (08:11)
[2022-05-01] MEDS: Gabapentin 400 MG CAPSULE PO (08:11)
[2022-05-01] MEDS: Buprenorphine/Naloxone 8/2 mg FILM 1 FILM SUBLINGUAL ×2 (08:14→12:38)
--- NOTE | 2022-05-01 11:46 | PC.NURSE ---
Dao is alert, fully oriented, pleasant and cooperative with discharge process. He denies ideation, plan or intent to harm self or others. He denies physical complaint.
--- NOTE | 2022-05-01 16:59 | PM.PSYDC ---
DS: Providers Provider Date of Service: 05/01/22 Date of admission: 04/24/22 16:19 Date of discharge: 05/01/22 Primary care physician: Unknown Physician Attending physician on discharge: Eric Caballero DS: Diagnosis Discharge Diagnosis (1) Substance induced mood disorder: Status: Ruled-out (2) Post traumatic stress disorder (PTSD): Status: Acute (3) Opioid use disorder, severe, dependence: Status: Acute (4) Cocaine use disorder, moderate, dependence: Status: Resolved DS: Medications Discharge Medications Home Medications: Previous Rx's Medication Instructions Recorded clonidine HCl 0.1 mg tablet 0.1 mg PO BID PRN anxiety 15 days 05/01/22 #30 tabs lidocaine 4 % topical patch 1 patch transdermal DAILY PRN pain 05/01/22 (Lidocaine Pain Relief) 30 days #30 ea nicotine (polacrilex) 4 mg gum 4 mg buccal Q2H PRN nicotine 05/01/22 cravings 3 days #100 ea trazodone 150 mg tablet 150 mg PO BEDTIME PRN insomnia 15 05/01/22 days #15 tabs buprenorphine 8 mg-naloxone 2 mg 1 film sublingual TID 7 days #21 ea 05/02/22 sublingual film Mental Status Exam Mental Status Exam Narrative: Pt is alert and oriented; behavior is more hyperactive, irritable; dressed in casual attire, scruffy but adequate hygiene; mood is described as irritated and affect congruent; eye contact appropriate; Speech is normal rate, volume and prosody and not pressured; some psychomotor agitation present; thought process goal directed; Thought content is on being made fun of by staff, his food order being messed with; otherwise pertinent to relevant topics; denies any SI or HI; denies AVH but says hears staff saying things behind his back and is internally preoccupied; Patients insight and judgment are impaired. Data Imaging Diagnostic Imaging Impressions Shoulder X-Ray 04/23/22 11:36 IMPRESSION: Small cortical defect along the superior margin of the distal right clavicle. This is nonspecific and of indeterminate age. This could be degenerative in nature or secondary to old injury. Correlate with physical exam and trauma history. No other significant abnormality. DS: Summary Hospital Course Hospital Course: Pt is a 36 year-old male with hx of cocaine and opioid abuse/dependence, psychotic symptoms, PTSD, recently discharged from 03/14/2022, who self presented to [facility], first for MSK pain, but then reporting suicidal ideation in context of substance use and homelessness.? Patient is currently a poor historian says that he does not want to talk to song writer at this time.? He is not impolite but says that he just needs to rest.? He was willing to answer few questions and currently denies any SI or HI; denies AVH.? He does not want to get on maintenance medication of Suboxone or methadone but just wants to use Suboxone for detox. 04/26 mood improved, SI remains resolved patient wants to get on Suboxone his maintenance medication 04/27 mood continues to remain improved, no SI; withdrawal complete with Suboxone on board.? Wants clonidine for anxiety.? Feels that his depression is mostly substance induced which can be severe however also clears up when he gets sober 04/28/2022:? No changes to current treatment plan 04/29/22: add gabapentin 400mg tid 04/30 patient more intense today; has delusional ideas that staff his making fun of him, messing with his food; has auditory hallucinations.? No insight at all and refuses any kind of psychiatric medication.? Similar presentation to patient's admission on M 3.? Patient amenable to staying on the unit for help with a program but would like discharge soon.? No SI and no HI at all and he is not intrusive to other patients.? It seems that patient is showing evidence of psychotic illness as these delusional thoughts are present despite improved mood and absence of depression; it is possible that this is a mild manic episode but for now will diagnosis schizoaffective disorder depressed type. While patient remains vulnerable to relapse and decompensation, he is not an imminent risk for harm to self or others and does not rise to the level of involuntary commitment.? He does not want any further treatment or medication management.? Patient is wanting discharge soon and his request will be honored. Status at Discharge Functional status at discharge: independent ambulation Overall status at discharge: patient is back to baseline Time Spent with Patient Time attestation: Total time spent providing and/or coordinating discharge services: Time spent: Greater than 30 minutes Discharge Plan Discharge Anticipated Discharge Date/Time: 05/01/22 10:00 Patient Disposition: Senior Care Discharge Diagnosis: Schizoaffective Disorder, depressed type Referrals: Jamilah Jean [Other] - 05/02/22 11:00 am (Follow-up discharge appointment with Jamilah Jean for MAT treatment at [facility] Yudelkaalissa Cosby [Other] - 05/03/22 11:00 am (Initial diagnostic for psychiatry and therapy services at [facility] Patient needs to attend appointment in order to receive therapy and medication management services.) Asia Muro MD [Physician] - 05/11/22 9:00 am (in officee) Discharge Medications: New nicotine (polacrilex) 4 mg gum 4 mg buccal Q2H PRN (Reason: nicotine cravings) 3 Days Qty: 100 0RF clonidine HCl 0.1 mg Tablet 0.1 mg PO BID PRN (Reason: anxiety) 15 Days Qty: 30 1RF Protocol: Hold for SBP< HOLD for SBP < : 90 trazodone 150 mg tablet 150 mg PO BEDTIME PRN (Reason: insomnia) 15 Days Qty: 15 1RF lidocaine [Lidocaine Pain Relief] 4 % Adhesive Patch,Medicated 1 patch transdermal DAILY PRN (Reason: pain) 30 Days Qty: 30 0RF Protocol: Apply to: Apply to: right shoulder Rx Instructions: apply to shoulder Discontinued gabapentin 400 mg Capsule 400 mg PO TID 30 Days Qty: 90 0RF buprenorphine-naloxone [Suboxone] 8-2 mg film 1 film sublingual BID Qty: 14 0RF No Action buprenorphine-naloxone 8-2 mg film 1 film sublingual TID 7 Days Qty: 21 0RF Discharge Orders: Discharge Order (Routine); Ordered 05/01/22 Ordered By: Eric Caballero Diet: Regular diet Activity on Discharge: As tolerated Stand Alone Forms: Patient Portal Discharge page, [facility] Care Plan Goals: Maintain mood and safe behaviors Take medications as prescribed Continue to pursue sobriety Practice coping skills Continue with outpatient providers and reach out to them as needed Health Concerns: Mood stability and behaviors Sobriety Right shoulder muscle strain Plan of Treatment: Follow up with your PCP, psychiatric provider and other outpatient providers regarding above concerns Take medications as prescribed Assessment: Risk assessment at time of discharge:? Patient was interviewed prior to discharge and found to be fully oriented and without any SI or HI. Patient is not in imminent risk of harm to self or others and has a safety plan that includes presenting to the closest ER or calling 911 if feeling unsafe.? Patient has been observed closely by nursing and unit staff throughout admission; patient has not engaged in any behaviors that suggest dangerousness to self or others. Discharge Date/Time: 05/01/22 13:10
== END 2022-05-01 13:10 | disposition home or self-care (01) | DRG 750 ==
LOC: HO.ED 20:54 → HO.PM5 04-24 16:23
PROVIDERS: Emergency Medicine; Nurse Practitioner Family; Admitting Provider Psychiatry & Neurology Psychiatry; Emergency Provider Emergency Medicine; Visit Provider Psychiatry & Neurology Psychiatry
DX: F25.1 Schizoaffective disorder, depressive type (principal); R45.851 Suicidal ideations; Z59.02 Unsheltered homelessness; F11.20 Opioid dependence, uncomplicated; F14.20 Cocaine dependence, uncomplicated; F17.210 Nicotine dependence, cigarettes, uncomplicated; Z71.6 Tobacco abuse counseling; F43.10 Post-traumatic stress disorder, unspecified; Z20.822 Contact with and (suspected) exposure to COVID-19; Z56.0 Unemployment, unspecified; Z79.899 Other long term (current) drug therapy
CPT/HCPCS: 36415; 73030; 80053; 80307; 82077; 85025; 87635; 93005; 99285; J2765

== ENCOUNTER → 2022-05-02 10:36 | Outpatient (BNVA) | payer MEDICAID, SELFPAY | PROVIDERS: Visit Provider Nurse Practitioner Psychiatric/Mental Health | DX: Z51.81 Encounter for therapeutic drug level monitoring (principal); F11.20 Opioid dependence, uncomplicated | CPT/HCPCS: 80305 ==

== ENCOUNTER → 2022-08-21 13:03 | Outpatient (BNVA) | payer MEDICAID, SELFPAY | PROVIDERS: Visit Provider Nurse Practitioner Psychiatric/Mental Health | DX: F11.24 Opioid dependence with opioid-induced mood disorder (principal); F14.20 Cocaine dependence, uncomplicated; F43.10 Post-traumatic stress disorder, unspecified; F25.1 Schizoaffective disorder, depressive type; Z51.81 Encounter for therapeutic drug level monitoring; Z79.899 Other long term (current) drug therapy; Z59.01 Sheltered homelessness | CPT/HCPCS: 80305; 99202 ==

== ENCOUNTER 2022-12-31 17:33 | Emergency (ER) | payer MEDICAID, SELFPAY ==
[2022-12-31 17:46] VITALS: BP 130/92; BP 144/86; PULSE 130; PULSE 135; RESP 22; TEMP 37.2; O2SAT 100; O2SAT 98; BMI 21.3
[2022-12-31 18:00] VITALS: BP 128/94; PULSE 129; RESP 16; O2SAT 96
--- NOTE | 2022-12-31 18:16 | PC.NURSE ---
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 he allowed security to search him. belongings searched and placed in decon. pt requesting to leave, states I don't want to be here, I want to leave pt in room pacing/agitated.
--- NOTE | 2022-12-31 18:27 | ED.OVERDOSE ---
HPI - Overdose General Chief Complaint: Overdose Stated Complaint: OD, 12MG OG NARCAN ADMIN PRIOR TO EMS Time Seen by Provider: 12/31/22 17:35 Source: patient Mode of arrival: EMS Limitations: no limitations History of Present Illness HPI Narrative: Patient comes to emergency room by ambulance. Patient was found unresponsive in an alley by bystanders. Patient was given 5 mg intranasal by the bystanders. Patient arrived awake and alert. Patient states that he used cocaine and heroin, states it was recreational, no intentions of hurting herself, denies HI or SI. Patient denies chest pain or shortness of breath. Related Data Previous Rx's Medication Instructions Recorded clonidine HCl 0.1 mg tablet 0.1 mg PO BID PRN anxiety 15 days 05/01/22 #30 tabs lidocaine 4 % topical patch 1 patch transdermal DAILY PRN pain 05/01/22 (Lidocaine Pain Relief) 30 days #30 ea nicotine (polacrilex) 4 mg gum 4 mg buccal Q2H PRN nicotine 05/01/22 cravings 3 days #100 ea trazodone 150 mg tablet 150 mg PO BEDTIME PRN insomnia 15 05/01/22 days #15 tabs buprenorphine 8 mg-naloxone 2 mg 1 film sublingual TID 7 days #21 ea 05/02/22 sublingual film Allergies Allergy/AdvReac Type Severity Reaction Status Date / Time No Known Allergies Allergy Verified 08/21/22 13:10 Review of Systems Review of Systems: Constitutional : No Weight loss, No Fever, No Chills, No Night Sweats, No Fatigue, No Malaise ENT/Mouth : No Hearing loss, No Ear Pain, No Nasal Congestion, No Sinus Pain, No Hoarseness, No sore throat, No Rhinorrhea, No Swallowing Difficulty Eyes: No Eye Pain, No Swelling, No Redness, No Foreign Body, No Discharge, No Vision Changes Cardiovascular : No Chest Pain, No SOB, No Dyspnea on Exertion, No Orthopnea, No Edema, No Palpitations Respiratory : No Cough, No Sputum, No Wheezing, No Smoke Exposure, No Dyspnea Gastrointestinal : No Nausea, No Vomiting, No Diarrhea, No Constipation, No abdominal Pain, No Hematochezia, No Melena Genitourinary : no irregular bleeding, No Dysuria, No Urinary Frequency, No Hematuria, No Urinary Incontinence, No Urgency, No Flank Pain, No Urinary Flow Changes, No Hesitancy Musculoskeletal : No joint pain, No Myalgias, No Joint Swelling Skin : No Skin Lesions, No rash Neuro : No Weakness, No Numbness, No Paresthesias, No Loss of Consciousness, No Dizziness, No Headache Psych : No Anxiety/Panic, No Depression, No SI/HI/AH/VH, admits to substance abuse Heme/Lymph: No Bruising, No Bleeding,No Lymphadenopathy Endocrine : No Polyuria, No Polydipsia, No Temperature Intolerance [facility] Past Medical History Medical History Depression Drug abuse, opioid type Opioid use disorder Post traumatic stress disorder (PTSD) Schizoaffective disorder, depressive type Substance induced mood disorder Social History Social History Household Members: None Housing: Homeless Do you presently have visiting nurse or other home services: No Alcohol intake: never Patient Tobacco Use Status: Current someday Tobacco user Tobacco use type: Cigarette Cigarette Packs Per Day: 1 Cigarettes Per Day: 20.0 Substance Use Type: Crack/Cocaine, Heroin, Marijuana and Opiates Advance Directives: No Advance Directives Information Provided: Yes Advance Directives Date on File: 04/11/21 service: No Current occupational status: unemployed Sexual orientation: Straight/Heterosexual Physical Exam Vital Signs: Vital Signs: Last Vital Signs Temp 99.0 F 12/31/22 17:46 Pulse 129 H 12/31/22 18:00 Resp 16 12/31/22 18:00 BP 128/94 H 12/31/22 18:00 Pulse Ox 96 12/31/22 18:00 O2 Del Method Room Air 12/31/22 18:00 BMI result Body Mass Index 21.3 Const: Other: Appearance: Alert. Oriented X3. No acute distress. Eyes: Pupils equal, round and reactive to light. ENT: Pharynx normal. Neck: Normal inspection. Neck supple. No lymph nodes noted. No crepitus CVS: Tachycardic, regular rhythm. Pulses normal. Normal S1 and S2 Respiratory: No respiratory distress. Breath sounds normal. No Wheezing. No rales Abdomen: Soft and nontender. No rigidity. No distention. Skin: Skin warm and dry. Normal skin color. Normal skin turgor. Extremities: No lower extremity edema. No Lacerations. No Rash Neuro: Oriented X 3. No motor deficit. No sensory deficit. Moving all extremities. No slurred speech. CN 2 through 12 grossly intact Psych: calm, cooperative, normal affect Medical Decision Making Medical Decision Making MDM Narrative: -patient refused EKG are blood work. Patient is awake, alert and oriented x4, no acute distress. -patient's vitals stable other than being tachycardic. -patient states that he is very concerned that he left his elderly mother home alone. Patient requesting to be discharged. As mentioned above, patient declined all care. Patient clinically sober, ambulating in the ED unassisted with normal steady gait. -declined care/sude consult -discussed with the patient the risks of leaving against medical advice including . -patient agreeable to leave against medical advice. Discharge Plan Discharge Clinical Impression: Accidental overdose Patient Disposition: Left Against Medical Advice Instructions: Adult Overdose (ED) Additional Instructions: Please follow-up with your primary care physician tomorrow. If you have any worsening or new symptoms, please return to the emergency room or call 911 Prescriptions: No Action buprenorphine-naloxone 8-2 mg film 1 film sublingual TID 7 Days Qty: 21 0RF nicotine (polacrilex) 4 mg gum 4 mg buccal Q2H PRN (Reason: nicotine cravings) 3 Days Qty: 100 0RF clonidine HCl 0.1 mg Tablet 0.1 mg PO BID PRN (Reason: anxiety) 15 Days Qty: 30 1RF Protocol: Hold for SBP< HOLD for SBP < : 90 trazodone 150 mg tablet 150 mg PO BEDTIME PRN (Reason: insomnia) 15 Days Qty: 15 1RF lidocaine [Lidocaine Pain Relief] 4 % Adhesive Patch,Medicated 1 patch transdermal DAILY PRN (Reason: pain) 30 Days Qty: 30 0RF Protocol: Apply to: Apply to: right shoulder Rx Instructions: apply to shoulder
[2022-12-31] MEDS: Naloxone HCl Nasal TAKE HOME 4 MG SPRAY NOSTRILALT (18:46)
[2022-12-31 18:47] VITALS: BP 122/90; PULSE 114; RESP 13; O2SAT 97
--- NOTE | 2022-12-31 21:13 | MHC.RECOVSUP ---
? Reason for consult:Recovery Support o ?Current location: ED o ?Identified substance use concern: WILLIAM ? 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
== END 2022-12-31 18:50 | disposition left against medical advice (07) ==
PROVIDERS: Emergency Provider Emergency Medicine
DX: T40.1X1A Poisoning by heroin, accidental (unintentional), initial encounter (principal); R00.0 Tachycardia, unspecified; Y92.9 Unspecified place or not applicable; F14.10 Cocaine abuse, uncomplicated; F17.210 Nicotine dependence, cigarettes, uncomplicated; Z71.6 Tobacco abuse counseling; Z79.899 Other long term (current) drug therapy
CPT/HCPCS: 99283

== ENCOUNTER 2024-02-23 15:36 | Emergency (ER) | payer MEDICAID, SELFPAY ==
[2024-02-23 15:39] VITALS: BP 93/61; PULSE 69; RESP 18; TEMP 36.5; O2SAT 98; BMI 22.6
[2024-02-23] MEDS: Diphth,Pertus(ACell),Tet Adult 0.5 ML SYRINGE IM (16:17)
[2024-02-23] MEDS: Lidocaine HCl 1 % MPF 5 ML VIAL INFILTRATI ×2 (16:18)
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
[2024-02-23 17:17] VITALS: BP 108/76; PULSE 70; RESP 18; TEMP 36.6; O2SAT 95
== END 2024-02-23 17:19 | disposition home or self-care (01) ==
PROVIDERS: Emergency Provider Emergency Medicine
DX: S61.411A Laceration without foreign body of right hand, initial encounter (principal); X99.1XXA Assault by knife, initial encounter; Y93.89 Activity, other specified; Y92.9 Unspecified place or not applicable; Y99.9 Unspecified external cause status; Z23 Encounter for immunization
CPT/HCPCS: 12001; 90471; 90715; 99282; 99284

== ENCOUNTER 2025-02-17 10:52 | Emergency (ER) | payer MEDICAID, SELFPAY ==
--- NOTE | 2025-02-17 10:55 | ECG_ITS ---
Test Reason : tachycardia Blood Pressure : */* mmHG Vent. Rate : 172 BPM Atrial Rate : 172 BPM P-R Int : 90 ms QRS Dur : 76 ms QT Int : 244 ms P-R-T Axes : -21 79 5 degrees QTcB Int : 412 ms Sinus tachycardia with short OH ST & T wave abnormality, consider inferior ischemia Abnormal ECG When compared with ECG of 23-Apr-2022 16:12, OH interval has decreased Vent. rate has increased by 110 bpm T wave inversion now evident in Inferior leads T wave amplitude has increased in Anterior leads Referred By: Generic ED Physician Electronically Signed By: SARA TOPETE MD
[2025-02-17 11:00] VITALS: BP 145/78; PULSE 190; O2SAT 98
--- NOTE | 2025-02-17 11:01 | ED_ITS ---
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 Patient admits to drug use today. Arrives profusely diaphoretic and somewhat anxious and confused. MD complaint: erratic behavior Related Data Previous Rx's ?Medication ?Instructions ?Recorded clonidine HCl 0.1 mg tablet 0.1 mg PO BID PRN anxiety 15 days 05/01/22 #30 tabs lidocaine 4 % topical patch 1 patch transdermal DAILY PRN pain 05/01/22 (Lidocaine Pain Relief) 30 days #30 ea nicotine (polacrilex) 4 mg gum 4 mg buccal Q2H PRN mary otine 05/01/22 cravings 3 days #100 ea trazodone 150 mg tablet 150 mg PO BEDTIME PRN insomn ia 15 05/01/22 days #15 tabs buprenorphine 8 mg-naloxone 2 mg 1 film sublingual TID 7 days #21 ea 05/02/22 sublingual film cephalexin 500 mg capsule 500 mg PO QID 7 days #28 cap s 02/23/24 Allergies Allergy/AdvReac Type Severity Reaction Status Date / Time No Known Allergies Allergy Verified 02/17/25 11:53 Review of Systems 2 Review of Systems: As per HPI Yes all other systems are reviewed and are negative PMFSH Past Medical History Medical History Depression Drug abuse, opioid type Opioid use disorder Post traumatic stress disorder (PTSD) Schizoaffective disorder, depressive type Substance induced mood disorder Social History Social History Household Members: None Housing: Homeless Do you presently have visiting nurse or other home services: No Alcohol intake: never Patient Tobacco Use Status: Current someday Tobacco user Tobacco use type: Cigarette Cigarette Packs Per Day: 1 Cigarettes Per Day: 20.0 Substance Use Type: Crack/Cocaine, Heroin, Marijuana and Opiates Advance Directives: No Advance Directives Information Provided: Yes Advance Directives Date on File: 04/11/21 service: No Current occupational status: unemployed Sexual orientation: Straight/Heterosexual Physical Exam ED Vital Signs: Vital Signs - 24 hr 02/17/25 11:02 02/17/25 11:41 02/17/25 11:54 Temperature 101.1 F H Pulse Rate 182 H 170 H 140 H Respiratory Rate 16 20 Blood Pressure 152/96 H 106/69 Pulse Oximetry 96 97 Oxygen Delivery Method Room Air Room Air 02/17/25 14:15 Temperature Pulse Rate 115 H Respiratory Rate 12 Blood Pressure 101/66 Pulse Oximetry 96 Oxygen Delivery Method Room Air BMI result Body Mass Index 22.8 Vital signs have been reviewed and appear to be correct. Blood pressure normal. Heart rate tachycardic. Respiratory rate normal. Temperature febrile. Oxygen saturation normal. Const General: cooperative, alert, awake, diaphoretic and intoxicated appearing Nutritional Appearance: average body habitus Orientation/consciousness: oriented to person and oriented to place Limitations: altered mental status HENND Head: Yes normocephalic and Yes atraumatic Ears: hearing grossly normal bilaterally and external ears normal General nose exam: Normal external nose present Face and sinus: Yes sinuses nontender Mouth: Normal oral and palatal mucosa present and oropharynx normal Throat: Yes posterior oropharynx normal and Yes uvula midline Eyes Pupils: Equal, round and reactive pupils present (pupils 2mm bilat) Neck Neck: Yes normal visual inspection, Yes no meningeal signs, Yes trachea midline and Yes supple Resp Effort & Inspection: normal respiratory effort Auscultation: clear to auscultation bilaterally Cardio Rate: tachycardic Rhythm: regular rhythm Heart sounds: S1 normal heart sound present and S2 normal heart sound present Peripheral pulses: Peripheral pulses 2+ throughout GI Palpation (GI): Soft to palpation and nontender Auscultation: normoactive bowel sounds General: Yes no CVA tenderness Back/Spine/Pelvis Back: no CVA tenderness Skin Other: multiple scabs to right lower leg Neuro General: oriented to person, oriented to place, moves all extremities, no meningeal signs, no focal motor deficits, CN's II-XI intact bilaterally and deep tendon reflexes 2+ bilaterally Cranial nerves: Yes Equal, round and reactive pupils present (pupils 2mm bilat) Extrem Right lower extremity: knee Details: normal ROM and warmth Location: anteriorly (with erythema and central scab) and foot Details: normal capillary refill and vascular exam Details: dorsalis pedis pulse present, posterior tibial pulse present and normal capillary refill Course Reevaluation(s) Reevaluation #1: Patient now awake, alert, oriented x3. Reports that he sniffed 1 bag of dope this morning, denies injecting drugs. States that he was not delirious this morning claims that he was praying while seen dancing with a traffic cone. Denies any current complaints and requesting discharge. Eating and drinking. Heart rate has improved to 110-115. Will repeat EKG, if no concerning findings, patient will be cleared for discharge. Time: 15:52 Reevaluation #2: No concerns on repeat EKG, shows NSR. Patient has tolerated PO food and fluids well. Feel he is clinically sober for discharge at this time, will provide patient with take-home Narcan. Return precautions discussed at bedside. Patient verbalized understanding of and agreement with plan. Time: 16:40 Medications Administered Discontinued Medications Generic Name Dose Route Start Last Admin Trade Name Kita PRN Reason Stop Dose Admin Diazepam 2.5 mg 02/17/25 11:01 02/17/25 11:03 Diazepam 10 Mg/2 Ml Cartridge IVPUSH 02/17/25 11:02 2.5 mg STAT STA Administration Diazepam 2.5 mg 02/17/25 11:10 02/17/25 11:05 Diazepam 10 Mg/2 Ml Cartridge IVPUSH 02/17/25 11:11 2.5 mg STAT STA Administration Diazepam 5 mg 02/17/25 11:10 02/17/25 11:14 Diazepam 10 Mg/2 Ml Cartridge IVPUSH 02/17/25 11:11 5 mg STAT STA Administration Diazepam 5 mg 02/17/25 11:44 02/17/25 11:45 Diazepam 10 Mg/2 Ml Cartridge IVPUSH 02/17/25 11:45 5 mg STAT STA Administration Sodium Chloride 1,000 mls @ 999 mls/hr 02/17/25 11:15 02/17/25 12:06 Ns IV 02/17/25 12:15 Infused .Q1H1M TONE Infusion Sodium Chloride 1,000 mls @ 999 mls/hr 02/17/25 12:15 02/17/25 14:16 Ns IV 02/17/25 13:15 Infused .Q1H1M TONE Infusion Sodium Chloride 1,000 mls @ 999 mls/hr 02/17/25 14:15 02/17/25 15:48 Ns IV 02/17/25 15:15 Infused .Q1H1M TONE Infusion Medical Decision Making Medical Decision Making [facility] Narrative: Patient is a 39-year-old male with history of opioid use disorder, cardiomyopathy, PTSD, schizoaffective disorder presenting to the emergency department via EMS after 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 On exam patient is awake, A+Ox3, significantly tachycardic, febrile, physical exam findings as above. Given reported symptoms and physical exam findings, initial differential includes but is not limited to drug or alcohol intoxication or withdrawal, electrolyte abnormality, rhabdomyolysis, dehydration. Do not feel tachycardia and fever represent sepsis in this setting, feel these are likely due to intoxication. Labs notable for mild leukocytosis, normal lactic and CK. Urine drug screen positive for opiates, methadone, fentanyl, cocaine and marijuana. Urinalysis is without evidence of infection. EKG shows sinus tachycardia.Case discussed with Dr. Harmon who is in agreement with this and recommends IV fluids and valium. Differential Diagnosis Differential Diagnoses: The differential diagnosis associated with the presentation includes As per [facility] Admission/Observation Consideration of admission/observation: Escalation of care including admission/observation considered Patient would have been admitted to the hospital had their work up had any findings where hospital admission was appropriate and their clinical presentation warranted hospital admission. Lab Data [facility] Lab Attestation statement: I reviewed the patient's lab results. As per [facility] 02/17/25 11:27 02/17/25 11:27 Labs: Lab Results 02/17/25 02/17/25 02/17/25 Range/Units 11:27 12:03 13:00 WBC 13.9 H (4.8-10.8) X10*3/uL RBC 5.45 (4.60-5.80) X10*6/uL Hgb 14.2 (14.0-18.0) g/dl Hct 44.6 (42.0-52.0) % MCV 81.8 (80.0-98.0) fL MCH 26.1 L (27.0-33.0) pg MCHC 31.8 (31.0-36.0) g/dl RDW 15.8 (11.0-16.0) % Plt Count 458 H D (160-400) X10*3/uL MPV 10.0 (9.4-12.4) fL Immature Gran % (Auto) 2.3 H (0.0-0.4) % Neut % (Auto) 60.4 (45-73) % Lymph % (Auto) 27.8 (20-40) % Williams % (Auto) 7.5 (2-11) % Eos % (Auto) 1.3 (0-4) % Baso % (Auto) 0.7 (0-2) % Lymph # (Auto) 3.9 (1.2-4.9) X10*3/uL Williams # (Auto) 1.0 (0.1-1.2) X10*3/uL Eos # (Auto) 0.2 (0.0-0.4) X10*3/uL Baso # (Auto) 0.1 (0.0-0.2) X10*3/uL Abs Immat Gran (auto) 0.32 H (0.00-0.03) X10*3/uL Absolute Neuts (auto) 8.4 H (2.0-8.3) x10*3/uL Absolute Nucleated RBC 0.000 (0.0-0.012) X10*3/uL Nucleated RBC % (auto) 0.0 (0.0-0.2) /100WBC Sodium 139 (135-145) mmol/L Potassium 5.1 (3.3-5.1) mmol/L Chloride 105 (96-108) mmol/L Carbon Dioxide 22 (22-29) mmol/L Anion Gap 17 (12-20) BUN 13 (9-16) mg/dL Creatinine 1.26 (0.5-1.4) mg/dL Estim Creat Clear Calc 72.6 Estimated GFR > 60 Random Glucose 159 H (60-115) mg/dL Lactic Acid 1.7 (0.5-2.0) mmol/L Calcium 9.5 (8.4-10.2) mg/dL Magnesium 2.7 H (1.6-2.6) mg/dL Total Bilirubin 0.3 (0.0-1.0) mg/dL AST 96 H (5-37) U/L ALT 127 H (0-40) U/L Alkaline Phosphatase 95 (39-117) U/L Total Creatine Kinase 102 (38-174) U/L Total Protein 9.3 H (6.5-8.0) g/dL Albumin 4.7 (3.5-5.0) g/dL Urine Color Yellow Urine Appearance Clear Urine pH 8.5 (5.0-9.0) Ur Specific [place] 1.020 (1.005-1.025) Urine Protein 30 (1+) H (Neg-Trace) mg/dL Urine Glucose (UA) Negative (Negative) mg/dL Urine Ketones Trace (Negative) mg/dL Urine Blood Negative (Negative) Urine Nitrite Negative (Negative) Ur Leukocyte Esterase Negative (Negative) Urine RBC 0-2 (0-2) /HPF Urine WBC 0-5 (0-5) /HPF Ur Squamous Epith Cells 0-2 (0-2) /HPF Urine Bacteria None Seen (None Seen) Hyaline Casts 3-5 (0-2) /LPF Urine Opiates Screen POSITIVE H (Not Detect) Ur Buprenorphine Scrn Not Detected (Not Detect) ng/mL Ur Oxycodone Screen Not Detected (Not Detect) ng/mL Urine Methadone Screen Positive H (Not Detect) ng/mL Urine Fentanyl Screen POSITIVE H (Not Detect) Ur Barbiturates Screen Not Detected (Not Detect) Ur Phencyclidine Scrn Not Detected (Not Detect) Ur Amphetamines Screen Not Detected (Not Detect) U Benzodiazepines Scrn Not Detected (Not Detect) Urine Cocaine Screen POSITIVE H (Not Detect) U Marijuana (THC) Screen POSITIVE H (Not Detect) Ethyl Alcohol < 10 mg/dL Independent Interpretation I performed an independent interpretation of an: EKG (sinus tachycardia, rate 164 bpm, normal MS interval and QTc) External Record Review External record reviewed: Inpatient record, Office record and Outpatient record Critical Care Time Critical Care Time Critical Care Time: Yes Total Critical Care Time: 37 Attestation: I have personally provided critical care time exclusive of time spent on separately billable procedures. Time includes review of lab data, radiology results, discussion with consultants, and monitoring for potential decompensation. Intervention performed as documented. Discharge Plan Discharge Clinical Impression: Cellulitis of knee, right Acute drug intoxication Qualifiers: Complication of substance-induced condition: uncomplicated Qualified Code(s): F 19.920 - Other psychoactive substance use, unspecified with intoxication, uncomplicated Patient Disposition: Home, Self-Care Instructions: Cellulitis (ED), Opioid Safety (ED) Additional Instructions: Opiate use disorder You were seen in our Emergency Department today for acute drug intoxication. You were given medications to counteract the effects of the drugs you used. You have been given naloxone (narcan) to take home with you. This medication is used to potentially treat opiate overdose. You were noted to have an area of redness and swelling to your right knee known as cellulitis. Take your prescribed antibiotics as directed for the full course of the medication. You can use Tylenol or ibuprofen per package instructions every 6 hours as needed for pain. If necessary, you can alternate these medications so that you can take one medication every 3 hours. For instance, at noon take ibuprofen, then at 3:00 p.m. take Tylenol, then at 6:00 p.m. take ibuprofen. Please schedule an appointment for follow-up with your primary care physician as soon as possible. Return to the emergency department if you experience recurrent vomiting, fevers greater than 100.4? F, increasing area of redness, warmth around the area, foul-smelling discharge from the area, increased tenderness around the area, or any other concerning symptoms. If you decide you want to stop or cut down on how much you?re using, you can call or walk into our outpatient Addiction Treatment office: [facility] (M-F 9am-5p) [address] [place] [address], [phone] You may have been provided with safer injection?items, please take time to take care of YOU and your health. Use new supplies whenever possible to lessen the chances of infections and other illnesses.? ?If you need more supplies, please go [facility],? [address] [place] [address] OR you can call or text to coordinate delivery of safer supplies. You were also provided a list of several treatment providers in the area.? If you experience any worsening symptoms you cannot control please return to the ED or call 911. Please follow up at your next appointment. Things to look out for are fevers, chest pain, shortness of breath, severe pain, dizziness, fainting or any other concerns. Prescriptions: No Action buprenorphine-naloxone 8-2 mg film 1 film sublingual TID 7 Days Qty: 21 0RF nicotine (polacrilex) 4 mg gum 4 mg buccal Q2H PRN (Reason: nicotine cravings) 3 Days Qty: 100 0RF clonidine HCl 0.1 mg Tablet 0.1 mg PO BID PRN (Reason: anxiety) 15 Days Qty: 30 1RF Protocol: Hold for SBP< HOLD for SBP < : 90 trazodone 150 mg tablet 150 mg PO BEDTIME PRN (Reason: insomnia) 15 Days Qty: 15 1RF lidocaine [Lidocaine Pain Relief] 4 % Adhesive Patch,Medicated 1 patch transdermal DAILY PRN (Reason: pain) 30 Days Qty: 30 0RF Protocol: Apply to: Apply to: right shoulder Rx Instructions: apply to shoulder cephalexin 500 mg capsule 500 mg PO QID 7 Days Qty: 28 0RF Print Language: Portuguese
[2025-02-17 11:02] VITALS: BP 152/96; PULSE 182; RESP 16; TEMP 38.4; O2SAT 96; BMI 22.8
[2025-02-17] MEDS: diazePAM 10 MG/2 ML CARTRIDGE 2.5 MG IVPUSH ×2 (11:03→11:05)
[2025-02-17] MEDS: diazePAM 10 MG/2 ML CARTRIDGE 5 MG IVPUSH ×2 (11:14→11:45)
[2025-02-17 11:37] LABS: MANUAL DIFF FLAG NO
[2025-02-17 11:39] LABS: Hematocrit 44.6 % (42.0-52.0); Hemoglobin 14.2 g/dl (14.0-18.0); Imm Gran Abs Auto 0.32 X10*3/uL (0.00-0.03); Imm Gran Pct Auto 2.3 % (0.0-0.4); Lymphocytes Absolute Auto 3.9 X10*3/uL (1.2-4.9); Mean Corpuscular HGB Conc 31.8 g/dl (31.0-36.0); Mean Corpuscular Hemoglobin 26.1 pg (27.0-33.0); Mean Corpuscular Volume 81.8 fL (80.0-98.0); NRBC Abs Auto 0.000 X10*3/uL (0.0-0.012); NRBC Pct Auto 0.0 /100WBC (0.0-0.2); Platelet Count 458 X10*3/uL (160-400); Red Blood Count 5.45 X10*6/uL (4.60-5.80); White Blood Count 13.9 X10*3/uL (4.8-10.8)
[2025-02-17 11:41] VITALS: PULSE 170; RESP 20
[2025-02-17 11:54] VITALS: BP 106/69; PULSE 140; O2SAT 97
[2025-02-17 11:59] LABS: Alanine Aminotransferase 127 U/L (0-40); Albumin Level 4.7 g/dL (3.5-5.0); Alkaline Phosphatase 95 U/L (39-117); Anion Gap 17 (12-20); Aspartate Amino Transferase 96 U/L (5-37); Blood Urea Nitrogen 13 mg/dL (9-16); Calcium 9.5 mg/dL (8.4-10.2); Carbon Dioxide 22 mmol/L (22-29); Chloride 105 mmol/L (96-108); Creatinine Clr Calc Pharmacy 72.6; Estimated Glomerular Filt Rate > 60; Magnesium 2.7 mg/dL (1.6-2.6); Potassium 5.1 mmol/L (3.3-5.1); Sodium 139 mmol/L (135-145); Total Protein 9.3 g/dL (6.5-8.0)
[2025-02-17 13:10] LABS: Appearance Urine Clear; Glucose Urine UA Negative (Negative); PH 8.5 (5.0-9.0); Specific Gravity - Urine 1.020 (1.005-1.025); UMIC TRIGGER UACC YES
[2025-02-17 13:21] LABS: Cannabinoid Screen Urine POSITIVE (Not Detect)
--- OUTSIDE RECORDS SUMMARY | 2025-02-17 14:02 | XMS_ITS | Encounter Summary ---
Author Organization [employer] Address [address] [facility] [address] [place] [address] Care Team Providers Care Glass Crusher Name Role Phone Unavailable Primary Care Provider Unavailabl e Encounter Details Date Type Department Care Team (Late st Contact Info) Description 02/17/2025 Orders Only GENERIC EXTERNAL DATA DEPARTMENT Provider, Generic External Data Social History Tobacco Use Types Packs/Day Years Used Date Smoking Tobacco: Never Assessed Sex and Gender Information Value Date Recorded Sex Assigned at Male 06/18/2022 10:36 AM EDT Legal Sex Male 10:36 AM EDT Gender Identity Male 06/18/2022 10:36 AM EDT Sexual Orientation Straight 06/18/2022 10 :36 AM EDT documented as of this encounter Plan of Treatment Not on file documented as of this encounter Procedures Procedure Name Priority Date/Time Associated Diagnosis Comments URINALYSIS, COMPLETE, WITH REFLEX TO CULTURE Routine 02/17/2025 1:00 PM EDT documented in this encounter Results * (ABNORMAL) Urinalysis, Complete, with Reflex to Culture (02/17/2025 1:00 PM EDT) Color Urine Yellow [facility] Appearance Urine Clear [facility] PH 8.5 5.0 - 9.0 [facility] Glucose Urine UA Negative Negative mg/dL [facility] Urine Blood Negative Negative [facility] Specific [place] - Urine 1.020 1.005 - 1.025 [facility] Urine Protein 30 (1+)(A) Neg-Trace mg/dL [facility] Urine Ketones Trace Negative mg/dL [facility] Nitrite Urine Negative Negative [facility] Leukocyte Esterase Urine Negative Negative [facility] RBC Urine 0-2 0 - 2 /HPF [facility] Urine WBC 0-5 0 - 5 /HPF [facility] Urine Squamous Epithelial Cell 0-2 0 - 2 /HPF [facility] Urine Bacteria None Seen None Seen [facility] Hyaline Casts, Urine 3-5 0 - 2 /LPF [facility] 02/17/2025 1:00 PM EDT 02/17/2025 1:06 PM EDT Narrative [facility] - 02/17/2025 1:28 PM EDT [id number], Clean Catch us Generic External Data Provider LAB URINE ORDERAB LES Final Result [facility] [address] [place] [address] [phone] documented in this encounter Visit Diagnoses Not on filedocumented in this encounter
[2025-02-17 14:15] VITALS: BP 101/66; PULSE 115; RESP 12; O2SAT 96
--- NOTE | 2025-02-17 14:16 | PC.NURSE ---
Pt more with it, HR now 110's.
--- NOTE | 2025-02-17 14:30 | PC.NURSE ---
Pt tolerating ice water and orange juice.
--- NOTE | 2025-02-17 15:48 | ECG_ITS ---
Test Reason : ETOH Blood Pressure : */* mmHG Vent. Rate : 96 BPM Atrial Rate : 96 BPM P-R Int : 142 ms QRS Dur : 88 ms QT Int : 318 ms P-R-T Axes : -10 146 -27 degrees QTcB Int : 401 ms Normal sinus rhythm Left posterior fascicular block Cannot rule out Inferior infarct , age undetermined Abnormal ECG When compared with ECG of 17-Feb-2025 11:00, Vent. rate has decreased by 76 bpm QRS axis Shifted right T wave amplitude has decreased in Anterior leads Referred By: Adela Singh Electronically Signed By: SARA TOPETE MD
--- NOTE | 2025-02-17 16:48 | PC.NURSE ---
Refused take home narcan , stating he would just throw it on the ground upon leaving.
[2025-02-17 16:49] VITALS: BP 101/66; PULSE 115; RESP 12; TEMP 37.1; O2SAT 96
== END 2025-02-17 16:49 | disposition home or self-care (01) ==
PROVIDERS: Registered Nurse Emergency; Emergency Provider Emergency Medicine Emergency Medical Services
DX: F19.920 Other psychoactive substance use, unspecified with intoxication, uncomplicated (principal); L03.115 Cellulitis of right lower limb; R00.0 Tachycardia, unspecified; F25.1 Schizoaffective disorder, depressive type; F43.10 Post-traumatic stress disorder, unspecified; F11.20 Opioid dependence, uncomplicated; F17.210 Nicotine dependence, cigarettes, uncomplicated; Z79.899 Other long term (current) drug therapy
CPT/HCPCS: 36415; 80053; 80307; 81001; 82550; 83605; 83735; 85025; 87040; 93005; 96361; 96374; 96376; 99284; 99291; J3360

== ENCOUNTER → 2025-02-17 10:55 | Outpatient (BNV) | payer MEDICAID, SELFPAY | PROVIDERS: Emergency Provider Emergency Medicine Emergency Medical Services; Visit Provider Internal Medicine Cardiovascular Disease | DX: I44.5 Left posterior fascicular block (principal) | CPT/HCPCS: 93010 ==

== ENCOUNTER 2025-03-31 14:15 | Emergency (ER) | payer MEDICAID, SELFPAY ==
[2025-03-31] VITALS (7 sets, daily range): BP systolic 108–178; BP diastolic 73–110; PULSE 51–76; RESP 10–19; TEMP 36.3–36.6; O2SAT 89–99; BMI 20.4
--- NOTE | 2025-03-31 14:24 | ED.OVERDOSE ---
HPI - Overdose General Chief Complaint: Overdose Stated Complaint: SUBSTANCE USE Time Seen by Provider: 03/31/25 14:23 Source: patient Mode of arrival: EMS Limitations: altered mental status History of Present Illness ED Provider: Dr. Rene Hutchison HPI Narrative: 39-year-old male with history of opioid use disorder, opiate overdose, cardiomyopathy, PTSD, schizoaffective disorder who presents emergency department for evaluation of opiate overdose. The patient was found unresponsive on a sidewalk by the police. Patient was given 8 mg of intranasal Narcan with slow response. EMS states that they had to support his respirations in route to the hospital with a bag-valve mask. Here in the emergency department he is awake but somnolent. He is breathing spontaneously with a good rhythm. O2 saturation and end-tidal CO2 were normal. He is somnolent but arousable. He told me that he uses 5-6 bags of heroin daily and he injected heroin just prior to losing consciousness. Related Data Previous Rx's ?Medication ?Instructions ?Recorded buprenorphine 8 mg-naloxone 2 mg 1 film sublingual TID 7 days #21 ea 05/02/22 sublingual film cephalexin 500 mg capsule 500 mg PO QID 5 days #20 caps 04/01/25 doxycycline hyclate 100 mg tablet 100 mg PO Q12H 5 days #10 tabs 04/01/25 Allergies Allergy/AdvReac Type Severity Reaction Status Date / Time No Known Allergies Allergy Verified 03/31/25 14:25 Review of Systems Review of Systems: Yes all other systems are reviewed and are negative PMFSH Past Medical History [facility] Narrative: Social history: The patient does smoke cigarettes. He does drink alcohol. He injects heroin daily. He has had presentations in the emergency department in the past for opiate overdose. Medical History Depression Drug abuse, opioid type Opioid use disorder Post traumatic stress disorder (PTSD) Schizoaffective disorder, depressive type Substance induced mood disorder Social History Social History Household Members: None Housing: Homeless Do you presently have visiting nurse or other home services: No Unable to assess alcohol history related to: Unknown Alcohol intake: never Patient Tobacco Use Status: Current someday Tobacco user Tobacco use type: Cigarette Cigarette Packs Per Day: 1 Cigarettes Per Day: 20.0 Use of substances other than those prescribed or required for medical reasons: Yes Substance Use Type: Heroin Substance Use Frequency: Daily Last Used Substance: Just Prior to Admission Advance Directives: No Advance Directives Information Provided: No Advance Directives Date on File: 04/11/21 Do you have a plan to hurt others: No Plan service: No Current occupational status: unemployed Sexual orientation: Straight/Heterosexual Physical Exam Vital Signs: Vital Signs: Last Vital Signs Temp 98.0 F 04/01/25 11:39 Pulse 58 04/01/25 11:39 Resp 18 04/01/25 11:39 BP 108/80 04/01/25 11:39 Pulse Ox 97 04/01/25 11:39 O2 Del Method Room Air 04/01/25 11:39 BMI result Body Mass Index 20.4 Exam: General: Somnolent but arousable, normal respiratory rate, diaphoretic, disheveled Head: Normocephalic, atraumatic EENT: Pupils are 2 mm and reactive, Lids normal, sclera normal, conjunctiva normal, nose normal , ears normal, throat without erythema or exudates Neck: Supple, no adenopathy Lung: breath sounds symmetric, no wheezing, rales or rhonchi Chest: symmetric movement, nontender Heart: regular rate and rhythm, normal S1, S2 no murmurs or rubs Abdomen: soft, non-tender, nondistended, normal bowel sounds Back: no vertebral tenderness, no CVAT Extremities: no deformities, moves all extremities symmetrically, cellulitis to the left wrist with no flocculence, skin is indurated -most likely secondary to injecting drugs in his area Neuro: Somnolent but arousable, oriented to person and place, slow speech but answers questions appropriate, cranial nerves intact, moves all extremities symmetrically Psych: Pleasant, cooperative Course Course Course Narrative: Time: 11:33 Date: 04/01/25 Provider: Nadege Bull DO Physician observation ended at 1133am. Patient has been cleared for discharge by the CARE team. to go to [facility]. Medications Administered Discontinued Medications Generic Name Dose Route Start Last Admin Trade Name Freq PRN Reason Stop Dose Admin Cephalexin HCl 500 mg 04/01/25 04:17 04/01/25 04:28 Cephalexin 500 Mg Capsule PO 04/01/25 04:18 500 mg ONCE ONE Administration Cephalexin HCl 500 mg 04/01/25 13:00 04/01/25 11:34 Cephalexin 500 Mg Capsule PO 04/06/25 12:59 500 mg QID TONE Administration Doxycycline Monohydrate 100 mg 04/01/25 04:17 04/01/25 04:28 Doxycycline Monohydrate 100 Mg Capsule PO 04/01/25 04:18 100 mg ONCE ONE Administration Doxycycline Monohydrate 100 mg 04/01/25 11:30 04/01/25 11:34 Doxycycline Monohydrate 100 Mg Capsule PO 04/06/25 11:29 100 mg BID TONE Administration Naloxone HCl 8 mg 04/01/25 03:47 04/01/25 11:34 Naloxone Hcl Nasal Take Home 4 Mg [place] NOSTRILALT 04/01/25 03:48 8 mg ONCE ONE Administration Medical Decision Making Medical Decision Making MDM Narrative: 39-year-old male with history of opioid use disorder, opiate overdose, cardiomyopathy, PTSD, schizoaffective disorder who presents emergency department for evaluation of opiate overdose. The patient was found unresponsive on a sidewalk by the police. Patient was given 8 mg of intranasal Narcan with slow response. EMS states that they had to support his respirations in route to the hospital with a bag-valve mask. Here in the emergency department he is awake but somnolent. He is breathing spontaneously with a good rhythm. O2 saturation and end-tidal CO2 were normal. He is somnolent but arousable. He told me that he uses 5-6 bags of heroin daily and he injected heroin just prior to losing consciousness.Vital signs revealed an elevated blood pressure of 155/107 otherwise unremarkable. The patient was somnolent but arousable. patient does have evidence of cellulitis of the left wrist with no abscess at this time. If Exam was otherwise unremarkable. Differential diagnosis: Includes but is not limited to Heroin overdose, fentanyl overdose, alcohol intoxication, anemia, electrolyte abnormalities Course: 14:20 the patient is somnolent but arousable, most likely secondary to overdose on opiates verses other substance the adulterated the heroin that he use. Patient was placed on a cardiac, O2 saturation and end-tidal CO2 monitor. Patient will be observed for proximally 4 hours and make sure he does not have recurrence in his narcosis. Start Physician Observation 19:30 My independent interpretation of the patient's laboratory evaluation is as follows: Chronic normocytic anemia with an H&H of 11.4 and 35.0. Venous pH was 7.57 with normal pCO2 of 32 and an elevated bicarb of 30. AST and ALT were elevated 69 and 78. ethanol level was below detectable limits. Urine tox screen pending urine collection. Patient remains somnolent but arousable. patient will be kept in the emergency department overnight until he is awake and alert and can be re-evaluated. I did order a recovery team consult for SUDE exam. 04:20 Patient was given doxycycline 100 mg orally and Keflex 500 mg orally for his left wrist cellulitis Time: 11:12 Date: 04/01/25 Provider: Rene Hutchison MD Patient in physician observation for polysubstance use disorder overdose, SUDE evaluation.? Patient was evaluated by the CARE team. Care team is assisting with inpatient detox therefore patient will be kept in the emergency department until safe disposition can be determined. I ordered regular diet for the patient I also ordered doxycycline b.i.d. x5 days and Keflex q.i.d. x5 he has for the patient's left wrist cellulitis. Will continue to monitor. Time: 11:39 Date: 04/01/25 Provider: Rene Hutchison MD Physician observation ended at 11:39 . Patient was discharged to [facility] detox rehab facility. Admission/Observation Consideration of admission/observation: Escalation of care including admission/observation considered ( Yes) Lab Data MDM Lab Attestation statement: I reviewed the patient's lab results. 03/31/25 15:02 03/31/25 15:02 Labs: Lab Results 03/31/25 03/31/25 04/01/25 Range/Units 15:02 15:09 04:41 WBC 10.2 (4.8-10.8) X10*3/uL RBC 4.36 L (4.60-5.80) X10*6/uL Hgb 11.4 L (14.0-18.0) g/dl Hct 35.0 L D (42.0-52.0) % MCV 80.3 (80.0-98.0) fL MCH 26.1 L (27.0-33.0) pg MCHC 32.6 (31.0-36.0) g/dl RDW 15.0 (11.0-16.0) % Plt Count 218 D (160-400) X10*3/uL MPV 10.5 (9.4-12.4) fL Immature Gran % (Auto) 0.5 H (0.0-0.4) % Neut % (Auto) 73.0 (45-73) % Lymph % (Auto) 17.3 L (20-40) % Bucks % (Auto) 8.6 (2-11) % Eos % (Auto) 0.2 (0-4) % Baso % (Auto) 0.4 (0-2) % Lymph # (Auto) 1.8 (1.2-4.9) X10*3/uL [place] # (Auto) 0.9 (0.1-1.2) X10*3/uL Eos # (Auto) 0.0 (0.0-0.4) X10*3/uL Baso # (Auto) 0.0 (0.0-0.2) X10*3/uL Abs Immat Gran (auto) 0.05 H (0.00-0.03) X10*3/uL Absolute Neuts (auto) 7.5 (2.0-8.3) x10*3/uL Absolute Nucleated RBC 0.000 (0.0-0.012) X10*3/uL Nucleated RBC % (auto) 0.0 (0.0-0.2) /100WBC VBG pH 7.57 H (7.32-7.43) VBG pCO2 32 mmHg VBG pO2 114 mmHg VBG HCO3 30 H (22-26) mmol/L VBG O2 Saturation 100.0 % VBG Base Excess 8.3 mmol/L Sodium 140 (135-145) mmol/L Potassium 4.3 (3.3-5.1) mmol/L Chloride 104 (96-108) mmol/L Carbon Dioxide 27 (22-29) mmol/L Anion Gap 13 (12-20) BUN 12 (9-16) mg/dL Creatinine 0.71 (0.5-1.4) mg/dL Estim Creat Clear Calc 112.0 Estimated GFR > 60 Random Glucose 162 H (60-115) mg/dL Calcium 9.2 (8.4-10.2) mg/dL Magnesium 2.2 (1.6-2.6) mg/dL Total Bilirubin 0.5 (0.0-1.0) mg/dL AST 69 H (5-37) U/L ALT 78 H (0-40) U/L Alkaline Phosphatase 59 (39-117) U/L Total Protein 7.7 (6.5-8.0) g/dL Albumin 4.0 (3.5-5.0) g/dL Lipase 7 L (8-78) U/L Urine Opiates Screen POSITIVE H (Not Detect) Ur Buprenorphine Scrn Not Detected (Not Detect) ng/mL Ur Oxycodone Screen Not Detected (Not Detect) ng/mL Urine Methadone Screen Not Detected (Not Detect) ng/mL Urine Fentanyl Screen POSITIVE H (Not Detect) Ur Barbiturates Screen Not Detected (Not Detect) Ur Phencyclidine Scrn Not Detected (Not Detect) Ur Amphetamines Screen Not Detected (Not Detect) U Benzodiazepines Scrn Not Detected (Not Detect) Urine Cocaine Screen POSITIVE H (Not Detect) U Marijuana (THC) Screen POSITIVE H (Not Detect) Ethyl Alcohol < 10 mg/dL Independent Historian Clinical information obtained from an independent historian. History obtained from or confirmed by: EMS Chronic Conditions Patient?s care impacted by: Other ( polysubstance use disorder) Discharge Plan Discharge Clinical Impression: Accidental overdose of non-opiate analgesics, Cellulitis of left wrist Patient Disposition: Xfer Other Transfer Details: [facility] Instructions: Cellulitis (ED) Additional Instructions: The police found you unconscious on a sidewalk and you were not breathing. You were given intranasal Narcan and this woke you up. You almost today because of your overdose. Your are being discharged home with intranasal Narcan. If you are going to continue to use heroin, you should make sure that there is a sober person with you that is not using drugs and that this person can administer intranasal Narcan in the event that you stop breathing. You were evaluated by our care team /recovery team, please follow their recommendations. You also have an infection of your left wrist(cellulitis) secondary to injecting drug Into your skin in his area Take Keflex (cephalexin) 500 mg pills, 1 pill 4 times a day for 5 days. Take doxycycline 100 mg, 1 pill every 12 hours for 5 days Your prescriptions were sent to the [place] [facility] pharmacy, you can pick these of at the time of your discharge. Opiate use disorder You were seen in our Emergency Department today for treatment of opiate use disorder /overdose from the narcotic that you injected. You also may have been given naloxone (narcan) to take home with you. This medication is used to potentially treat opiate overdose. If you decide you want to stop or cut down on how much you?re using, you can call or walk into our outpatient Addiction Treatment office: [facility] (M-F 9am-5p) [address] [place] [address], [address] [phone] You may have been provided with safer injection?items, please take time to take care of YOU and your health. Use new supplies whenever possible to lessen the chances of infections and other illnesses.? If you need more supplies, please go [facility],? [address] [place] [address] OR you can call or text to coordinate delivery of safer supplies. You were also provided a list of several treatment providers in the area.? If you experience any worsening symptoms you cannot control please return to the ED or call 911. Please follow up at your next appointment. Things to look out for are fevers, chest pain, shortness of breath, severe pain, dizziness, fainting or any other concerns. Prescriptions: New cephalexin 500 mg capsule 500 mg PO QID 5 Days Qty: 20 0RF doxycycline hyclate 100 mg tablet 100 mg PO Q12H 5 Days Qty: 10 0RF No Action buprenorphine-naloxone 8-2 mg film 1 film sublingual TID 7 Days Qty: 21 0RF Interventions: ED Discharge Assessment Last Done: 04/01/25 11:39 Discharge Date/Time: 04/01/25 11:39 Print Language: Belarusian
[2025-03-31 15:08] LABS: MANUAL DIFF FLAG NO
[2025-03-31 15:10] LABS: Hematocrit 35.0 % (42.0-52.0); Hemoglobin 11.4 g/dl (14.0-18.0); Imm Gran Abs Auto 0.05 X10*3/uL (0.00-0.03); Imm Gran Pct Auto 0.5 % (0.0-0.4); Lymphocytes Absolute Auto 1.8 X10*3/uL (1.2-4.9); Mean Corpuscular HGB Conc 32.6 g/dl (31.0-36.0); Mean Corpuscular Hemoglobin 26.1 pg (27.0-33.0); Mean Corpuscular Volume 80.3 fL (80.0-98.0); NRBC Abs Auto 0.000 X10*3/uL (0.0-0.012); NRBC Pct Auto 0.0 /100WBC (0.0-0.2); Platelet Count 218 X10*3/uL (160-400); Red Blood Count 4.36 X10*6/uL (4.60-5.80); White Blood Count 10.2 X10*3/uL (4.8-10.8)
[2025-03-31 15:13] LABS: Venous Blood Gas Refer to POC result
[2025-03-31 15:14] LABS: VBG HCO3 30 mmol/L (22-26); VBG O2 % Saturation 100.0 %
[2025-03-31 15:32] LABS: Alanine Aminotransferase 78 U/L (0-40); Albumin Level 4.0 g/dL (3.5-5.0); Alkaline Phosphatase 59 U/L (39-117); Anion Gap 13 (12-20); Aspartate Amino Transferase 69 U/L (5-37); Blood Urea Nitrogen 12 mg/dL (9-16); Calcium 9.2 mg/dL (8.4-10.2); Carbon Dioxide 27 mmol/L (22-29); Chloride 104 mmol/L (96-108); Creatinine Clr Calc Pharmacy 112.0; Estimated Glomerular Filt Rate > 60; Lipase 7 U/L (8-78); Magnesium 2.2 mg/dL (1.6-2.6); Potassium 4.3 mmol/L (3.3-5.1); Sodium 140 mmol/L (135-145); Total Protein 7.7 g/dL (6.5-8.0)
--- NOTE | 2025-03-31 16:05 | PC.NURSE ---
Pt arrives to ED via EM s/p OD on heroin. Per EMS, Pt found by PD on sidewalk presumably OD'd. 8mg IN narcan given with good result. Upon beinging EMS transport, Pt becomes unresponsive requiring ambu bag for ventilation. On arrival to ED, Pt is alert but very lethargy. Pt able to answer yes and no questions but requires frequent/constant stimulation to stay awake. Pt changes into hospital attire and belongings searched by security and placed in [facility] closet on shelf 1. Verbal orders from Dr. Hutchison to have blood labs drawn via straight stick, no IV placement needed at this time. Narcan 4mg IN to be placed at bedside. Capnography and cardiac monitoring to be initiated. Pt will be monitored for about 4hrs. Pt sleeping at this time. VSS Will continue to monitor.
--- OUTSIDE RECORDS SUMMARY | 2025-03-31 16:08 | XMS_ITS | Clinical Summary ---
Author Organization [employer] Address [address] [facility] [address] [place] [address] Care Team Providers Care Administrative Office Manager Name Role Phone Unavailable Primary Care Provider Unavailabl e Encounters Date Type Department Care Team Description 02/17/2025 Orders Only GENERIC EXTERNAL DATA DEPARTMENT Provider, Generic External Data from Last 3 Months Social History Tobacco Use Types Packs/Day Years Used Date Smoking Tobacco: Never Assessed Sex and Gender Information Value Date Recorded Sex Assigned at Male 06/18/2022 10:36 AM EDT Legal Sex Male 10:36 AM EDT Gender Identity Male 06/18/2022 10:36 AM EDT Sexual Orientation Straight 06/18/2022 10 :36 AM EDT Last Filed Vital Signs Vital Sign Reading Time Taken Comments Blood Pressure 130/88 05/03/2020 12:09 AM EDT Pulse 94 05/03/2020 12:09 AM EDT Temperature - - Respiratory Rate - - Oxygen Saturation - - Inhaled Oxygen Concentration - - Weight 73.7 kg (162 lb 6.4 oz) 05/03/2020 12:09 AM EDT Height 173 cm (5' 8.11 ) 05/03/2020 12:09 AM EDT Body Mass Index 24.61 05/03/2020 12:09 AM EDT Plan of Treatment Health Maintenance Due Date Last Done Comments Depression Screening 1984 HIV Screening 1984 Lipid Panel 1984 Disability Screening 1984 Alcohol/Substance Use Screening 1996 Tobacco Screening 1996 Family Planning (PISQ) 1999 HPV Vaccines (1 - Male 3-dos e series) 1999 Hepatitis C Screening 2002 Hepatitis B Vaccines (1 of 3 - 19+ 3-dose series) 2003 DTaP/Tdap/Td Vaccines (1 - Tdap) 09/16/2014 09/15/2014, 09/26/2012 COVID-19 Vaccine ( - 2023-2 5 season) 2024 Influenza Vaccine (#1) 2025 Zoster Vaccines (1 of 2) 2034 RSV Patients and Patients Aged 60 years or older (1 - 1-dose 75+ series) 2059 HIB Vaccines Aged Out No longer eligi ble based on patient's age to complete this topic Hepatitis A Vaccines Aged Out No long er eligible based on patient's age to complete this topic IPV Vaccines Aged Out No longer eligi ble based on patient's age to complete this topic Meningococcal B Vaccine Aged Out No l onger eligible based on patient's age to complete this topic Meningococcal Vaccine Aged Out No misbah nam eligible based on patient's age to complete this topic Pneumococcal Vaccine: Pediatrics (0 to 5 Years) and At-Risk Patients (6 to 49) Years Aged Out No longer eligible b ased on patient's age to complete this topic RSV under 20 months Aged Out No longe r eligible based on patient's age to complete this topic Rotavirus Vaccines Aged Out No longer eligible based on patient's age to complete this topic Procedures Procedure Name Priority Date/Time Associated Diagnosis Comments URINALYSIS, COMPLETE, WITH REFLEX TO CULTURE Routine 02/17/2025 1:00 PM EDT BLOOD CULTURE (SECOND) Routine 02/17/2025 12:09 PM EDT BLOOD CULTURE (FIRST) Routine 02/17/2025 12:03 PM EDT from Last 3 Months Results * (ABNORMAL) Urinalysis, Complete, with Reflex to Culture (02/17/2025 1:00 PM EDT) Color Urine Yellow [facility] Appearance Urine Clear [facility] PH 8.5 5.0 - 9.0 [facility] Glucose Urine UA Negative Negative mg/dL [facility] Urine Blood Negative Negative [facility] Specific [place] - Urine 1.020 1.005 - 1.025 [facility] Urine Protein 30 (1+)(A) Neg-Trace mg/dL [facility] Urine Ketones Trace Negative mg/dL [facility] Nitrite Urine Negative Negative [facility] Leukocyte Esterase Urine Negative Negative [facility] RBC Urine 0-2 0 - 2 /HPF [facility] Urine WBC 0-5 0 - 5 /HPF [facility] Urine Squamous Epithelial Cell 0-2 0 - 2 /HPF [facility] Urine Bacteria None Seen None Seen [facility] Hyaline Casts, Urine 3-5 0 - 2 /LPF [facility] 02/17/2025 1:00 PM EDT 02/17/2025 1:06 PM EDT Narrative [facility] - 02/17/2025 1:28 PM EDT [id number], Clean Catch us Generic External Data Provider LAB URINE ORDERAB LES Final Result [facility] [address] [place] [address] [phone] from Last 3 Months
--- NOTE | 2025-03-31 17:46 | PC.NURSE ---
Addendum entered by Romina Roberts RN 03/31/25 18:26: Pt also presents with small lac to forehead at hair line. Scant amount of bleeding noted at time of arrival. Pt unable to provide any insight on wound at time of arrival. Will obtain more information when Pt more alert. Original Note: Pt presents with open abscess to L wrist. No active drainage noted Tissue surrounding wound opening presents with erythema and inflammation. Pt unable to provide details regarding abscess at time of arrival and Pt sleeping now. Dr. Hutchison aware of abscess from time of arrival. Will acquire further detail when Pt is more alert.
[2025-04-01 00:26] VITALS: PULSE 53; RESP 14; O2SAT 98
[2025-04-01 04:57] LABS: Cannabinoid Screen Urine POSITIVE (Not Detect)
[2025-04-01 05:46] VITALS: BP 105/72; PULSE 64; RESP 15; TEMP 36.4; O2SAT 97
--- NOTE | 2025-04-01 06:10 | MHC.CARE ---
CARE Team attempted to evaluate patient who the assigned PA reported was awake, engaging and Wolof speaking. In attempting to assess the patient, he became frustrated by the assessment questions and asked the CARE Team Clinician if I knew what I was talking about. This clinician continued with my attempt to evaluate the patient's knowledge of his reason for being here and substance use, at which point he became angry, telling this clinician that I didn't know what I was doing and he required a Mint Wafer Depositor. Patient will be seen later this morning by the CARE Team.
[2025-04-01 08:00] VITALS: BP 108/80; PULSE 58; RESP 18; TEMP 36.7; O2SAT 97
--- NOTE | 2025-04-01 09:05 | MHC.CARE ---
Pt will be a detox bedsearch. Documentation faxed to [facility].
--- NOTE | 2025-04-01 09:29 | PC.NURSE ---
Report called to RUBI Sharma, plan to txf to unit while awaiting detox BS.
--- NOTE | 2025-04-01 09:31 | PC.NURSE ---
Assumed care of patient at 0932, patient moved from ED 16 to 4, calm and cooperative. Continue plan of care for detox bedsearch
--- NOTE | 2025-04-01 11:15 | PC.NURSE ---
Patient accepted by [facility], as stated by Juan Diego (CARE team). Arranging transportation to [facility] at this time.
[2025-04-01] MEDS: Naloxone HCl Nasal TAKE HOME 4 MG SPRAY 8 MG NOSTRILALT (11:34)
[2025-04-01 11:39] VITALS: BP 108/80; PULSE 58; RESP 18; TEMP 36.7; O2SAT 97
== END 2025-04-01 11:39 | disposition other institution (70) ==
PROVIDERS: Emergency Provider Emergency Medicine Emergency Medical Services
DX: T40.1X1A Poisoning by heroin, accidental (unintentional), initial encounter (principal); R40.4 Transient alteration of awareness; Y92.480 Sidewalk as the place of occurrence of the external cause; F17.210 Nicotine dependence, cigarettes, uncomplicated; F25.9 Schizoaffective disorder, unspecified; L03.114 Cellulitis of left upper limb; Z51.81 Encounter for therapeutic drug level monitoring; Z71.51 Drug abuse counseling and surveillance of drug abuser
CPT/HCPCS: 36415; 80053; 80307; 82803; 83690; 83735; 85025; 99285; S9485